=== PATIENT | female | born 1930 | race Caucasian/White ===

== ENCOUNTER 2017-08-06 13:38 | Inpatient (IN) ==
--- NOTE | 2017-08-06 14:19 | Emergency Department Note ---
Disposition Clinical Impression: Compression fracture, Pulmonary fibrosis, Mucus plugging of bronchi, Shortness of breath, Cough Chest pain Qualifiers: Chest pain type: chest pain on breathing Qualified Code(s): R07.1 - Chest pain on breathing Disposition: Admitted As Inpatient Condition: Fair Time of Disposition: 18:00 Chest Pain HPI - General Chief Complaint: ED Chest Pain Stated Complaint: CP Time Seen by Provider: 08/06/17 13:48 Source: patient Vital Signs Reviewed: Yes Nursing Notes Reviewed: Yes - History of Present Illness HPI Narrative: Patient is a 86-year-old female is brought in secondary to unable to walk secondary to weakness. Patient fell and hit her head this morning. No loss of consciousness. Patient is not on Coumadin. Patient is only on aspirin. No history of heart attack. Patient has been under treatment by Dr. Malhotra of pulmonology for pneumonitis. Patient states she continues to have chest pain along costal region in front and along the costal region in her back with cough and pain is worse when lying down. Patient states her pain is 10/10 sharp. Patient's weakness has been getting worse over the past 4 days currently patient is unable to stand on her own Pt complaint: chest pain Onset (ago): day(s) Duration: constant Onset: other (All the time) Pain Location: other (Diaphragmatic) Severity: severe Severity scale (1-10): 10 Quality: sharp Improves with: nothing Worsens with: supine Context: recent illness (Pneumonitis) Associated symptoms: Reports: other (Weakness) Treatments prior to arrival chest pain: aspirin - Related Data Home Medications Medication Instructions Recorded Confirmed Amlodipine Besylate 5 mg PO QAM 05/13/16 07/22/16 Aspirin 81 mg PO DAILY 05/13/16 07/22/16 Atenolol [Tenormin] 50 mg PO DAILY 05/13/16 07/22/16 Calcium Carbonate [Calcium] 500 mg PO QAM 05/13/16 07/22/16 Cholecalciferol (D-3) [Vitamin D] 1,000 unit PO DAILY 05/13/16 07/22/16 LORazepam [Ativan] 1 mg PO TID 05/13/16 07/22/16 Levothyroxine [Synthroid] 25 mcg PO 0605/13/16 07/22/16 Rosuvastatin Calcium [Crestor] 5 mg PO QAM 05/13/16 07/22/16 metFORMIN [Glucophage] 500 mg PO BIDWM 05/13/16 07/22/16 Acetaminophen/Butalbital/Caffe 1 tab PO Q6H PRN 07/22/16 07/22/16 [Fioricet] Nitroglycerin [Nitrostat] 0.4 mg SL Q5M PRN 07/22/16 07/22/16 Previous Rx's Medication Instructions Recorded Metaxalone [Skelaxin] 800 mg PO QID #21 tablet 05/30/16 Promethazine [Phenergan] 25 mg PO Q6HR #12 tablet 05/30/16 Azithromycin [Zithromax] 500 mg PO Q24H 5 Days 07/23/16 Ibuprofen [Motrin] 200 mg PO TID PRN #0 07/23/16 Magnesium Oxide [Mag-Ox] 400 mg PO DAILY #20 tablet 07/23/16 Potassium Chloride 10 meq PO DAILY #10 tab.er.prt 07/23/16 Magnesium Oxide [Mgo] 400 mg PO BID #20 tablet 05/19/17 Allergies Allergy/AdvReac Type Severity Reaction Status Date / Time codeine Allergy Hallucinati Verified 05/19/17 12:00 [From Tylenol-Codeine #3] ng gabapentin [From Neurontin] Allergy See Verified 05/19/17 12:00 Comments hydrocodone [From Vicodin] Allergy Dizziness Verified 05/19/17 12:00 levomefolate calcium Allergy Dizziness Verified 05/19/17 12:00 [From Metanx] mecobalamin [From Metanx] Allergy Dizziness Verified 05/19/17 12:00 Penicillins [PCN] Allergy Hives Verified 05/19/17 12:00 pregabalin [From Lyrica] Allergy Hives Verified 05/19/17 12:00 propoxyphene Allergy Hallucinati Verified 05/19/17 12:00 [From Darvocet-N] ng pyridoxal phosphate Allergy Dizziness Verified 05/19/17 12:00 [From Metanx] All systems ED: reviewed and negative except as stated. Review of Systems: As Per HPI Constitutional: Denies: fever Eyes: Denies: eye pain, vision change ENT ED: Reports: congestion Cardiovascular: Reports: chest pain. Denies: palpitations Respiratory: Reports: cough, dyspnea, wheezes Gastrointestinal: Denies: abdominal pain Genitourinary: Denies: urgency, dysuria, frequency Musculoskeletal: Reports: back pain Neurological: Reports: weakness. Denies: headache Endocrine: Reports: fatigue Chest Pain PMH - Past Medical History Medical history: Reports: arthritis, coronary artery disease, diabetes, hyperlipidemia, hypertension, peripheral artery disease, thyroid disease, TIA Surgical history: Reports: appendectomy, other Psychiatric history: Reports: anxiety, depression [employer] history: Reports: bilateral tubal ligation - Social History Smoking Status: Never smoker Alcohol use: Reports: none Drug use: Reports: none Physical Exam 78-year-old female who is alert and oriented 3 in no acute distress. Patient has normal vital signs. Patient has discomfort when sitting up for her lung exam patient's unable to lay flat secondary to worsening discomfort as well - General General appearance: alert - Head Head exam: atraumatic, normocephalic, normal inspection - Eye Eye exam: Present: normal appearance, PERRL, EOMI - ENT ENT exam: normal exam, normal oropharynx, mucous membranes moist - Neck Neck exam: Present: normal inspection, full ROM, trachea midline - Chest Chest inspection: Present: normal inspection, symmetric chest wall rise. Absent : tenderness - Respiratory Respiratory exam: Present: normal lung sounds bilaterally, wheezes (Left lung field) - Cardiovascular Cardiovascular exam: Present: regular rate, normal rhythm, normal heart sounds - Abdominal Exam Abdominal exam: Present: soft, Non-Tender. Absent: tenderness, distention, guarding, rebound, rigidity - Extremities Exam Extremities exam: Present: normal inspection, full ROM. Absent: tenderness, pedal edema - Back Exam Back exam: Present: normal inspection, full ROM. Absent: tenderness, CVA tenderness (R), CVA tenderness (L) - Neurological Exam Neurological exam: Present: alert, oriented X3, CN II-XII intact - Psychiatric Psychiatric exam: Present: normal affect - Skin Skin exam: Present: warm, dry, intact Course - Reevaluation(s) Reevaluation #1: Labs and imaging ordered Time: 14:23 - Consultations Consultation #1: Patient accepted for admission by hospitalist Dr. Alegre Time: 18:00 Vital Signs Temperature 98.4 F 08/06/17 13:41 Pulse Rate 76 08/06/17 13:41 Respiratory Rate 20 08/06/17 13:41 Blood Pressure 112/60 08/06/17 13:41 O2 Sat by Pulse Oximetry 92 08/06/17 13:41 Temperature 98.3 F 08/06/17 19:09 Pulse Rate 69 08/06/17 19:09 Respiratory Rate 12 08/06/17 19:09 Blood Pressure 136/54 08/06/17 19:09 O2 Sat by Pulse Oximetry 93 08/06/17 19:09 Oxygen Delivery Oxygen Delivery Room Air Chest Pain - MDM Narrative Medical decision making narrative: Patient with chest pain difficulty breathing and short of breath and generalized weakness worsening over the past week. Patient has history of a pneumonitis with worsening chest pain with coughing. Patient's labs show no elevation of white count. Patient's anemia is around baseline. Patient has elevated potassium 4.7 and was started on IV normal saline. Patient has no elevation of creatinine. CTA of the chest was taken secondary to worsening symptoms of patient's underlying pneumonitis and concerns for pulmonary embolism. CTA showed negative PE but did show a compression fracture at T6. Patient also has bronchiectasis with mucous plugging that is new. Recommended admission. Patient excess decision to admit. Patient is accepted for admission by Dr. Alegre the hospitalist. - Lab Data Result diagrams: 08/06/17 14:30 08/06/17 14:30 Lab Results 08/06/17 08/06/17 08/06/17 Range/Units 14:30 14:30 14:30 WBC 6.8 (4.3-11.1) K/mcL RBC 4.59 (3.82-4.97) M/mcL Hgb 10.7 L (11.5-15.4) g/dL Hct 36.4 (35.3-44.9) % MCV 79.3 L (83.0-100.0) fL MCH 23.3 L (28.0-33.3) pg MCHC 29.4 L (31.6-35.5) g/dL RDW 14.9 H (11.5-14.5) % Plt Count 369 (140-400) K/mcL MPV 10.1 (9.4-12.4) fL Immature Gran % 0.7 (0-4) % Seg Neutrophils % 70.7 % Lymphocytes % 20.1 % Monocytes % 7.8 % Eosinophils % 0.0 % Basophils % 0.7 % Neutrophils # 4.8 (1.6-8.9) K/mcL Lymphocytes # 1.4 (0.6-4.6) K/mcL Monocytes # 0.5 (0.0-1.3) K/mcL Eosinophils # 0.0 (0.0-0.6) K/mcL Basophils # 0.1 (0.0-0.2) K/mcL PT 10.4 (9.4-12.1) Seconds INR 1.0 APTT 32.7 (26.0-36.0) Seconds Sodium 137 (136-145) mEq/L Potassium 4.9 H (3.5-4.5) mEq/L Chloride 98 (98-109) mEq/L Carbon Dioxide 30 H (19-29) mEq/L BUN 21 H (7-20) mg/dL Creatinine 1.02 (0.57-1.11) mg/dL Est GFR ( Amer) > 60 (> 60) Est GFR (Non-Af Amer) 51 L (> 60) BUN/Creatinine Ratio 21 (6-26) Glucose 90 (70-99) mg/dL POC Glucose (58-89) Calculated Osmolality 287 (280-300) Calcium 11.9 H (8.6-10.8) mg/dL Troponin I (0-0.03) ng/mL B-Natriuretic Peptide (0-100) pg/mL Urine Color (Yellow) Urine Clarity (Clear) Urine pH (5.0-8.0) pH Units Ur Specific [place] (1.010-1.025) Urine Protein (Neg-Trace) mg/dL Urine Glucose (UA) (Normal) mg/dL Urine Ketones (Negative) mg/dL Urine Blood (Negative) Urine Nitrite (Negative) Urine Bilirubin (Negative) Urine Urobilinogen (Normal) mg/dL Ur Leukocyte Esterase (Negative) Urine Microscopic RBC (0-3) per hpf Urine Microscopic WBC (0-3) per hpf Ur Squamous Epith Cells (None-Few) per lpf Urine Bacteria (None-Few) per hpf Hyaline Casts (None-Few) per lpf 08/06/17 08/06/17 08/06/17 Range/Units 14:30 14:30 17:25 WBC (4.3-11.1) K/mcL RBC (3.82-4.97) M/mcL Hgb (11.5-15.4) g/dL Hct (35.3-44.9) % MCV (83.0-100.0) fL MCH (28.0-33.3) pg MCHC (31.6-35.5) g/dL RDW (11.5-14.5) % Plt Count (140-400) K/mcL MPV (9.4-12.4) fL Immature Gran % (0-4) % Seg Neutrophils % % Lymphocytes % % Monocytes % % Eosinophils % % Basophils % % Neutrophils # (1.6-8.9) K/mcL Lymphocytes # (0.6-4.6) K/mcL Monocytes # (0.0-1.3) K/mcL Eosinophils # (0.0-0.6) K/mcL Basophils # (0.0-0.2) K/mcL PT (9.4-12.1) Seconds INR APTT (26.0-36.0) Seconds Sodium (136-145) mEq/L Potassium (3.5-4.5) mEq/L Chloride (98-109) mEq/L Carbon Dioxide (19-29) mEq/L BUN (7-20) mg/dL Creatinine (0.57-1.11) mg/dL Est GFR ( Amer) (> 60) Est GFR (Non-Af Amer) (> 60) BUN/Creatinine Ratio (6-26) Glucose (70-99) mg/dL POC Glucose (58-89) Calculated Osmolality (280-300) Calcium (8.6-10.8) mg/dL Troponin I 0.00 (0-0.03) ng/mL B-Natriuretic Peptide 54 (0-100) pg/mL Urine Color Yellow (Yellow) Urine Clarity Clear (Clear) Urine pH 6.0 (5.0-8.0) pH Units Ur Specific [place] > 1.030 H (1.010-1.025) Urine Protein Trace (Neg-Trace) mg/dL Urine Glucose (UA) Normal (Normal) mg/dL Urine Ketones Negative (Negative) mg/dL Urine Blood Negative (Negative) Urine Nitrite Negative (Negative) Urine Bilirubin Small H (Negative) Urine Urobilinogen Normal (Normal) mg/dL Ur Leukocyte Esterase Negative (Negative) Urine Microscopic RBC 0-3 (0-3) per hpf Urine Microscopic WBC 0-3 (0-3) per hpf Ur Squamous Epith Cells Moderate H (None-Few) per lpf Urine Bacteria None Seen (None-Few) per hpf Hyaline Casts None Seen (None-Few) per lpf 08/06/17 Range/Units 19:23 WBC (4.3-11.1) K/mcL RBC (3.82-4.97) M/mcL Hgb (11.5-15.4) g/dL Hct (35.3-44.9) % MCV (83.0-100.0) fL MCH (28.0-33.3) pg MCHC (31.6-35.5) g/dL RDW (11.5-14.5) % Plt Count (140-400) K/mcL MPV (9.4-12.4) fL Immature Gran % (0-4) % Seg Neutrophils % % Lymphocytes % % Monocytes % % Eosinophils % % Basophils % % Neutrophils # (1.6-8.9) K/mcL Lymphocytes # (0.6-4.6) K/mcL Monocytes # (0.0-1.3) K/mcL Eosinophils # (0.0-0.6) K/mcL Basophils # (0.0-0.2) K/mcL PT (9.4-12.1) Seconds INR APTT (26.0-36.0) Seconds Sodium (136-145) mEq/L Potassium (3.5-4.5) mEq/L Chloride (98-109) mEq/L Carbon Dioxide (19-29) mEq/L BUN (7-20) mg/dL Creatinine (0.57-1.11) mg/dL Est GFR ( Amer) (> 60) Est GFR (Non-Af Amer) (> 60) BUN/Creatinine Ratio (6-26) Glucose (70-99) mg/dL POC Glucose 108 H (58-89) Calculated Osmolality (280-300) Calcium (8.6-10.8) mg/dL Troponin I (0-0.03) ng/mL B-Natriuretic Peptide (0-100) pg/mL Urine Color (Yellow) Urine Clarity (Clear) Urine pH (5.0-8.0) pH Units Ur Specific [place] (1.010-1.025) Urine Protein (Neg-Trace) mg/dL Urine Glucose (UA) (Normal) mg/dL Urine Ketones (Negative) mg/dL Urine Blood (Negative) Urine Nitrite (Negative) Urine Bilirubin (Negative) Urine Urobilinogen (Normal) mg/dL Ur Leukocyte Esterase (Negative) Urine Microscopic RBC (0-3) per hpf Urine Microscopic WBC (0-3) per hpf Ur Squamous Epith Cells (None-Few) per lpf Urine Bacteria (None-Few) per hpf Hyaline Casts (None-Few) per lpf - Radiology Data Radiology results reviewed: Yes I reviewed the patient's radiology results. Chest X-Ray 08/06/17 14:04 IMPRESSION: 1. Mild left basilar opacity may represent atelectasis with small effusion. D/ / Fady Cleveland MD / Fady Cleveland MD Interpreting Provider: Fady Cleveland MD Head CT 08/06/17 14:17 IMPRESSION: No acute intracranial abnormality. D/ / Arsen Solorio MD / Arsen Sloorio MD Interpreting Provider: Arsen Solorio MD Chest CTA 08/06/17 16:03 IMPRESSION: 1. No evidence of pulmonary embolism or aortic dissection. 2. There is evidence of interstitial fibrosis, irregular peripheral interstitial opacities in the lower lungs, with early fibrosis evidenced by honeycombing. The distribution suggests usual interstitial pneumonitis, and the differential diagnosis includes idiopathic pulmonary fibrosis, drug toxicity, and collagen vascular disease. 3. Associated with fat, there is bronchiectasis in the lower lungs, with evidence of mucous plugging, greatest within the right middle lobe, similar to mildly increased when compared to the previous exam. 4. In addition, there is biapical pleural scarring, which is most likely postinflammatory. 5. There is a new compression fracture of T6, with loss of approximately 60% of the vertebral body height, which is new when compared to the previous exam from late June. This results in mild central canal stenosis secondary to retropulsion of fragments. D/ / Fredrick Ramirez MD / Fredrick Ramirez MD Interpreting Provider: Fredrick Ramirez MD - EKG Data EKG attestation: Yes I reviewed and interpreted this EKG. EKG results narrative: EKG taken 08/06/2017 and 1414 hrs. shows sinus rhythm at a rate of 74 beats a minute with no acute ST elevations or depressions of any leads, no QRS widening or QT prolongation. Patient does have inverted P waves degrees EKG for comparison taken 05/19/2017 shows a sinus rhythm at 85 bpm no signs ischemia. Heart Score - Score History: Slightly Suspicious EKG: Non Specific repolarisation Disturbance Age: Greater than 65 Risk Factors: Equal/Greater than 3 risk factor or history of atherosclerotic disease Troponin: Less than normal limit HEART Score Total: 5 Attestation Statement - Attestation Attestation: Patient was seen with resident physician. I reviewed the history, physical, assessment and plan, and agree with the findings. I also personally evaluated this patient and had [id number] time with this patient. 78-year-old female presents to the emergency department with chief complaint of increasing weakness and chest pain. Patient has a history of pneumonitis. Originally diagnosis past summer. She was restarted on antibiotics approximately week ago by her doctor. The symptoms have persisted and gotten worse. Additionally she is now getting physically weak to the point that she is followed over most recently hitting her head on the ground. She says she does not really remember but does not think she got knocked out. No fevers or chills. No abdominal pain. The son does have some mild shortness of breath. On examination vital signs are stable with a good blood pressure oxygenation's saturation, and afebrile. ENT is unremarkable. Heart regular rhythm and rate. Lungs some mild crackles throughout. No wheezing. Abdomen soft and nontender. Extremities unremarkable. Neurologically patient is alert and oriented moves all extremities. ED course we will need to reevaluate the patient for pneumonitis. CT scan of the chest revealed continued pneumonitis. CT scan of the head however revealed no acute abnormalities. The chest CT demonstrated a new compression fracture. So the remainder of the thoracic and cervical spine were imaged as well as the lumbar spine. There is no other acute changes that were found. Patient's pain was controlled emergency department.. Will check basic labs. She was started on IV antibiotics for pneumonitis. Patient will be admitted to the hospital for further evaluation and treatment. Agree with the resident physician assessment and plan.
[2017-08-06 14:43] LABS: Basophils # 0.1 K/mcL (0.0-0.2); Basophils % 0.7 %; Hematocrit 36.4 % (35.3-44.9); Hemoglobin 10.7 g/dL (11.5-15.4); Immature Granulocytes % 0.7 % (0-4); Lymphocytes # 1.4 K/mcL (0.6-4.6); Lymphocytes % 20.1 %; Mean Corpuscular HGB Conc 29.4 g/dL (31.6-35.5); Mean Corpuscular Hemoglobin 23.3 pg (28.0-33.3); Mean Corpuscular Volume 79.3 fL (83.0-100.0); Mean Platelet Volume 10.1 fL (9.4-12.4); Monocytes # 0.5 K/mcL (0.0-1.3); Monocytes % 7.8 %; Neutrophils # 4.8 K/mcL (1.6-8.9); Platelet Count 369 K/mcL (140-400); Red Blood Count 4.59 M/mcL (3.82-4.97); Red Cell Distribution Width 14.9 % (11.5-14.5); Segmented Neutrophils % 70.7 %
[2017-08-06 14:48] LABS: Prothrombin Time 10.4 Seconds (9.4-12.1)
[2017-08-06 14:51] LABS: Activated Partial Thrombo Time 32.7 Seconds (26.0-36.0)
[2017-08-06 14:57] LABS: BUN/Creatinine Ratio 21 (6-26); Blood Urea Nitrogen 21 mg/dL (7-20); Calcium 11.9 mg/dL (8.6-10.8); Carbon Dioxide 30 mEq/L (19-29); Chloride 98 mEq/L (98-109); Glucose 90 mg/dL (70-99); Osmolality,Calculated 287 (280-300); Potassium 4.9 mEq/L (3.5-4.5); Sodium 137 mEq/L (136-145); eGFR For African Americans > 60 (> 60); eGFR For Non-African Americans 51 (> 60)
[2017-08-06] MEDS ORDERED: *HR* FentaNYL (PF) 100 MCG/2 ML VIAL IVP ONE (16:57)
[2017-08-06] MEDS ORDERED: 0.9 % Sodium Chloride 1,000 ML IVC ONE (17:35)
[2017-08-06 17:36] LABS: Bilirubin,Urine Small (Negative); Blood,Urine Negative (Negative); Clarity,Urine Clear (Clear); Color,Urine Yellow (Yellow); Glucose,Urine (UA) Normal (Normal); Ketones,Urine Negative (Negative); Leukocyte Esterase,Urine Negative (Negative); Nitrite,Urine Negative (Negative); Protein,Urine Trace mg/dL (Neg-Trace); Specific Gravity,Urine > 1.030 (1.010-1.025); Urobilinogen,Urine Normal (Normal)
[2017-08-06 17:38] LABS: Bacteria,Urine None Seen per hpf (None-Few); Hyaline Casts,Urine None Seen per lpf (None-Few); RBC,Urine 0-3 per hpf (0-3); Squamous Epithelial Cell,Urine Moderate per lpf (None-Few); WBC,Urine 0-3 per hpf (0-3)
[2017-08-06] MEDS ORDERED: Azithromycin 500 MG in D5% in Water 250 ML IVPB ONE (18:58)
[2017-08-06] MEDS ORDERED: Nitroglycerin 0.4 MG TAB.SUBL SL PRN (19:59)
[2017-08-06] MEDS ORDERED: Azithromycin 250 MG TABLET PO SCH (20:00)
[2017-08-06] MEDS ORDERED: Naloxone 0.4 MG/ML INJ IVP PRN (20:05)
[2017-08-06] MEDS ORDERED: *HR* Morphine 2 MG/ML SYRINGE IVP PRN (20:05)
[2017-08-06] MEDS ORDERED: Ondansetron 4 MG/2 ML VIAL IVP PRN (20:05)
[2017-08-06] MEDS ORDERED: Levofloxacin 500 MG/100 ML 500 MG/100 ML BAG IVPB SCH (21:00)
--- NOTE | 2017-08-06 21:00 | Internal Med History&Physical ---
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, bronchiectasis and mucous plugging within the right middle lobe - likely contributing to chest discomfort DuoNeb breathing treatment, IV Levaquin, O2 via nasal cannula Cultures - pending Chest x-ray - mild basilar opacity CTA chest - reviewed Troponin - negative, cycle troponin BN peptide - 54 CT head - no acute intracranial abnormality EKG - sinus rhythm with no acute ST-T changes Pulmonology consult The cardiac telemetry, continuous pulse ox, repeat labs in a.m., continue to monitor closely (2) Compression fracture Current visit: Yes Status: Acute Acute Compression Fracture of T6 with loss of approximately 60% of vertebral body height - likely secondary to osteoporosis and fall - likely causing chest discomfort and back pain Pain control with IV Morphine as needed Chronic compression fracture involving L2 and L3 vertebral bodies, no other acute fractures (3) Hypertension Current visit: No Status: Chronic Essential hypertension, controlled, continue Atenolol and Amlodipine Qualifiers: Hypertension type: essential hypertension Qualified Code(s): I10 - Essential (primary) hypertension (4) Hyperlipidemia Current visit: No Status: Chronic Continue Crestor Qualifiers: Hyperlipidemia type: unspecified Qualified Code(s): E78.5 - Hyperlipidemia , unspecified (5) Diabetes Current visit: No Status: Chronic Diabetes mellitus type 2, [id number]-tteswitts, normoglycemia Continue glucose checks, sliding scale insulin Qualifiers: Diabetes mellitus type: type 2 Diabetes mellitus complication status: with unspecified complications Diabetes mellitus water taxi boat mate insulin use: without water taxi boat mate use Qualified Code(s): E11.8 - Type 2 diabetes mellitus with unspecified complications (6) Hypothyroid Current visit: No Status: Chronic Continue home dose of Levothyroxine Qualifiers: Hypothyroidism type: unspecified Qualified Code(s): E03.9 - Hypothyroidism , unspecified (7) DVT prophylaxis Status: Acute Continue Heparin subcutaneous Internal Medicine - H&P: HPI Chief complaint: Chest pain Admitted From: Emergency Dept Plans for Post Hospital Care: Home History of present illness: Ms. Seals is a 86 year old female with past medical history of arthritis, coronary artery disease, diabetes, hyperlipidemia, hypertension, TIA, thyroid disease, peripheral vascular disease, anxiety, depression and osteoporosis. Patient presents to the ED with complaints of generalized weakness, chest discomfort and difficulty walking. Examined in the room. Patient is awake and alert. Not in any distress. Able to provide all history. No family members at bedside. Patient states she initially had generalized weakness and had a fall. She states she did not lose consciousness. Patient also complaints of chest pressure which started earlier today. Describes pain as sharp at times and currently rates it 5 out of 10. It radiates across her chest and to her back. Pain is worse with coughing. She also has associated shortness of breath. No alleviating factors. Symptoms started about 1-2 days ago. Gradually worsening. She also complains of mild lightheadedness. Denies vomiting or diarrhea or abdominal pain or any other symptoms. Patient states she has been treated for pneumonia recently as outpatient. Initial workup in the ED significant for new compression fracture of T6 with loss of 60% of the vertebral body height and also evidence of interstitial fibrosis, interstitial pneumonitis and bronchiectasis in the lower lung with mucus plugging within the right middle lobe. Patient is being admitted for compression fracture and probable pneumonia. Pulmonology consult is pending. CODE STATUS full code. Past Med Surg Social Fam HX - Past Medical History Medical history: arthritis, coronary artery disease, diabetes, hyperlipidemia, hypertension, peripheral artery disease, thyroid disease, TIA Psychiatric history: anxiety, depression - Past Surgical History Surgical History: appendectomy, other - Social History Smoking Status: Never smoker Smokeless Tobacco Status: No Alcohol use: none Drug use: none - Family History Father Living Status: Hx Family Cancer: Yes (Stomach) Mother Living Status: Hx Family Cardiac Disorders: Yes Brother Living Status: Still Living Hx Family Endocrine Disorder: Yes (DM) Sister Living Status: Hx Family Cancer: Yes (Colon) Internal Medicine - H&P: Meds Amlodipine Besylate 5 mg PO QAM 05/13/16 [History] Aspirin 81 mg PO DAILY 05/13/16 [History] Atenolol [Tenormin] 50 mg PO DAILY 05/13/16 [History] Calcium Carbonate [Calcium] 500 mg PO QAM 05/13/16 [History] Cholecalciferol (D-3) [Vitamin D] 1,000 unit PO DAILY 05/13/16 [History] LORazepam [Ativan] 1 mg PO TID 05/13/16 [History] Levothyroxine [Synthroid] 25 mcg PO 0630 05/13/16 [History] Rosuvastatin Calcium [Crestor] 5 mg PO QAM 05/13/16 [History] metFORMIN [Glucophage] 500 mg PO BIDWM 05/13/16 [History] Metaxalone [Skelaxin] 800 mg PO QID #21 tablet 05/30/16 [Rx] Promethazine [Phenergan] 25 mg PO Q6HR #12 tablet 05/30/16 [Rx] Acetaminophen/Butalbital/Caffe [Fioricet] 1 tab PO Q6H PRN 07/22/16 [History] Nitroglycerin [Nitrostat] 0.4 mg SL Q5M PRN 07/22/16 [History] Azithromycin [Zithromax] 500 mg PO Q24H 5 Days 07/23/16 [Rx] Ibuprofen [Motrin] 200 mg PO TID PRN #0 07/23/16 [Rx] Magnesium Oxide [Mag-Ox] 400 mg PO DAILY #20 tablet 07/23/16 [Rx] Potassium Chloride 10 meq PO DAILY #10 tab.er.prt 07/23/16 [Rx] Magnesium Oxide [Mgo] 400 mg PO BID #20 tablet 05/19/17 [Rx] 3 Allergy/AdvReac Type Severity Reaction Status Date / Time codeine Allergy Hallucinati Verified 05/19/17 12:00 [From Tylenol-Codeine #3] ng gabapentin [From Neurontin] Allergy See Verified 05/19/17 12:00 Comments hydrocodone [From Vicodin] Allergy Dizziness Verified 05/19/17 12:00 levomefolate calcium Allergy Dizziness Verified 05/19/17 12:00 [From Metanx] mecobalamin [From Metanx] Allergy Dizziness Verified 05/19/17 12:00 Penicillins [PCN] Allergy Hives Verified 05/19/17 12:00 pregabalin [From Lyrica] Allergy Hives Verified 05/19/17 12:00 propoxyphene Allergy Hallucinati Verified 05/19/17 12:00 [From Darvocet-N] ng pyridoxal phosphate Allergy Dizziness Verified 05/19/17 12:00 [From Metanx] All Systems PM: A 10-system review of systems was performed and is negative for pertinent findings except as documented above in the HPI. - Constitutional Constitutional: fatigue, weakness, no fever(s) - EENT Eyes: no blurry vision - Cardiovascular Cardiovascular ROS IM: chest pain, dyspnea, dyspnea on exertion, lightheadedness , orthopnea, no diaphoresis, no edema, no palpitations, no syncope - Respiratory Respiratory: cough, dyspnea, dyspnea on exertion, no hemoptysis, no wheezing, no chest congestion, no excessive phlegm production - Gastrointestinal Gastrointestinal: no abdominal pain, no bloating, no cramping, no diarrhea, no hematemesis, no hematochezia, no nausea, no vomiting - Genitourinary Genitourinary: no dysuria - Musculoskeletal Musculoskeletal ROS IM: no back pain - Neurological Neurological ROS: no abnormal gait, no confusion, no convulsions, no dizziness, no loss of vision, no numbness, no tingling - Constitutional Vitals: Temp Pulse Resp BP Pulse Ox 98.3 F 69 12 136/54 93 08/06/17 19:08/06/17 19:08/06/17 19:08/06/17 19:08/06/17 19:09 General appearance: Present: cachectic, A&O X 3, pleasant, no acute distress, underweight, answers questions appropriately Exam: Patient is chronically ill-appearing, frail - Head Head exam: Present: atraumatic - Eye Eye exam: Present: EOMI - ENT ENT exam: Present: mucous membranes dry - Respiratory Respiratory exam: Present: chest wall tenderness (Mild), wheezes (Mild bilaterally). Absent: accessory muscle use, rales, rhonchi, tachypnea - Cardiovascular Cardiovascular exam: Present: RRR, +S1, +S2 - GI/Abdominal GI/Abdominal exam: Present: soft. Absent: distended, firm, guarding, tenderness - Extremities Exam Extremities exam: Present: radial pulses palpable and symmetrical. Absent: calf tenderness, cyanotic, pedal edema - Neurological Exam Neurological exam: Present: alert, oriented X3, no focal deficits. Absent: facial droop, speech deficit Internal Med - H&P Results - Labs CBC & Chem 7: 08/06/17 14:30 08/06/17 14:30
[2017-08-06] MEDS ORDERED: D5% in Water 1,000 ML IVC PRN (21:58)
[2017-08-06] MEDS ORDERED: Dextrose Gel 15 GM PO PRN ×2 (21:58)
[2017-08-06] MEDS ORDERED: *HR* Dextrose 50 % in Water (Syg) 50 ML SYRINGE IVP PRN (21:58)
[2017-08-06] MEDS: Aspirin 81 MG TAB.CHEW PO SCH (23:20)
[2017-08-06] MEDS: Acetaminophen 325 MG TABLET PO PRN (23:30)
[2017-08-07] MEDS: Ipratropium/Albuterol Neb 3 ML IH SCH ×6 (00:09→20:05)
[2017-08-07 04:33] LABS: Basophils # 0.1 K/mcL (0.0-0.2); Basophils % 0.9 %; Hematocrit 28.9 % (35.3-44.9); Hemoglobin 8.5 g/dL (11.5-15.4); Immature Granulocytes % 0.6 % (0-4); Lymphocytes # 1.6 K/mcL (0.6-4.6); Mean Corpuscular HGB Conc 29.4 g/dL (31.6-35.5); Mean Corpuscular Hemoglobin 23.4 pg (28.0-33.3); Mean Corpuscular Volume 79.6 fL (83.0-100.0); Mean Platelet Volume 10.3 fL (9.4-12.4); Monocytes # 0.6 K/mcL (0.0-1.3); Monocytes % 10.9 %; Neutrophils # 3.2 K/mcL (1.6-8.9); Platelet Count 290 K/mcL (140-400); Red Blood Count 3.63 M/mcL (3.82-4.97); Red Cell Distribution Width 14.9 % (11.5-14.5); Segmented Neutrophils % 58.6 %
[2017-08-07 04:46] LABS: BUN/Creatinine Ratio 18 (6-26); Blood Urea Nitrogen 14 mg/dL (7-20); Calcium 9.7 mg/dL (8.6-10.8); Carbon Dioxide 26 mEq/L (19-29); Chloride 102 mEq/L (98-109); Glucose 93 mg/dL (70-99); Magnesium 1.6 mg/dL (1.6-2.6); Osmolality,Calculated 280 (280-300); Potassium 4.3 mEq/L (3.5-4.5); Sodium 135 mEq/L (136-145); eGFR For African Americans > 60 (> 60); eGFR For Non-African Americans > 60 (> 60)
[2017-08-07] MEDS: *HR* Heparin 5,000 UNIT/ML VIAL SQ SCH ×2 (06:37→18:56)
[2017-08-07] MEDS: Levothyroxine 25 MCG TABLET PO SCH (06:37)
[2017-08-07] MEDS: Famotidine 20 MG/2 ML VIAL IVP SCH ×2 (06:38→18:56)
--- NOTE | 2017-08-07 07:13 | Pulmonology Consult Note ---
Date of Encounter: 08/07/17 Time of Encounter: 07:12 Assessment and Plan (1) Atelectasis of right lung Current Visit: Yes Status: Acute Impression: 1. Chest Pain/Compression Fracture: I suspect that the etiology of her chest pain is 60 mechanical in nature and not related to chronic changes within her lung 2. Middle Lobe Collapse/Chronic mucous plugging: This is likely secondary to current chronic ineffectual airway clearance with possibility of underlying chronic bronchitis possibly from secondhand tobacco exposure although I have no PFTs to conclude that she has underlying COPD) Possibility of chronic infection with NTM. Otherpossible causes are Chronic Renumatological causes and CVID. w/u as outpatient thus far unrevealing and she has followed/been evaluated by Rheumatology (repeat visit scheduled). Serologies outside of RF level are fairly unremarkable. 3. ILD. Early UIP pattern which can be seen in Rheumatological condidtions 4. DVT Prophylaxis. Recs: 1. Supportive Care per Primary Medicine Service. 2. The mainstay of her treatment will be aggressive airway clearance including Acapella and bronchodilators. I have consulted and will discuss with the respiratory therapist about pulmonary hygiene in this patient. I think another course of antimicrobials is warranted although given her advanced age and possibility for complications related to a fluoroquinolone I would recommend a five-day course of azithromycin. Additionally induce sputum to be sent for culture including Gram stain and acid-fast stain (not to look for Mycobacterium tuberculosis but Nontuberculous Mycobacterium) is warranted. She will need repeat imaging in 3-4 weeks after discharge with follow-up with pulmonary at that time and bronchoscopy could be considered down the line. 3.. 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 In her age group there is no consensus of management although given that she does not require oxygen and symptoms are fairly mild symptomatic treatment is likely the plan of care but will need to be discussed an outpatient basis 4. Recommend chemical DVT prophylaxis to prevent VTE unless contra indication arises (2) DVT prophylaxis Current Visit: Yes Status: Acute (3) Pulmonary fibrosis Current Visit: Yes Status: Chronic (4) Mucus plugging of bronchi Current Visit: Yes Status: Acute (5) Chest pain Current Visit: Yes Status: Acute Qualifiers: Chest pain type: other chest pain Qualified Code(s): R07.89 - Other chest pain; R07.8 - Other chest pain (6) Compression fx, thoracic spine Current Visit: Yes Status: Acute Qualifiers: Encounter type: initial encounter Fracture type: closed Qualified Code(s) : S22.000A - Wedge compression fracture of unspecified thoracic vertebra, initial encounter for closed fracture History of Present Illness Consult date: 08/07/17 Requesting physician: Bridgette Medellin Reason for consult: abnormal CXR/CT Chief complaint: Chest pain History of present illness: Pleasant 86-year-old woman with past medical history of arthritis, coronary artery disease, diabetes, hyperlipidemia, hypertension, TIA, thyroid disease, peripheral vascular disease, anxiety, depression and osteoporosis who presented with generalized weakness chest pain difficulty with ambulation along with a mechanical faill. Workup in ED was remarkable for acute T6 compression fracture also notable for chronic changes including bronchiectasis right middle lobe partial collapse with mucous plugging and bilateral lower lobe evidence of early fibrotic changes. The patient has recently been evaluated as an outpatient by the pulmonary service because of the chronic CT changes that were seen previously.. The plan at that time was for a course of antimicrobials which turned out to be sulfa with repeat CT scan at the end of the month breath C July). She has not followed up with her outpatient acrylic fabricator (Dr. Malhotra). She admits to a chronic nonproductive cough she has had some weight loss and inability to gain weight over last few months which she describes is related to "pneumonia". She denies hemoptysis. 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 smoke she has no other environmental or industrial pollutant exposure Past Med Surg Social Fam HX - Past Medical History Medical history: arthritis, coronary artery disease, diabetes, hyperlipidemia, hypertension, peripheral artery disease, thyroid disease, TIA Psychiatric history: anxiety, depression - Past Surgical History Surgical History: appendectomy, other - Social History Smoking Status: Never smoker Smokeless Tobacco Status: No Alcohol use: none Drug use: none - Family History Father Living Status: Hx Family Cancer: Yes (Stomach) Mother Living Status: Hx Family Cardiac Disorders: Yes Brother Living Status: Still Living Hx Family Endocrine Disorder: Yes (DM) Sister History Unknown: Yes Living Status: Hx Family Cancer: Yes (Colon) Medications and Allergies Amlodipine Besylate 5 mg PO QAM 05/13/16 [History] Aspirin 81 mg PO DAILY 05/13/16 [History] Atenolol [Tenormin] 50 mg PO DAILY 05/13/16 [History] Calcium Carbonate [Calcium] 500 mg PO QAM 05/13/16 [History] Cholecalciferol (D-3) [Vitamin D] 1,000 unit PO DAILY 05/13/16 [History] LORazepam [Ativan] 1 mg PO TID 05/13/16 [History] Levothyroxine [Synthroid] [place] [address]/13/16 [History] Rosuvastatin Calcium [Crestor] 5 mg PO QAM 05/13/16 [History] metFORMIN [Glucophage] 500 mg PO BIDWM 05/13/16 [History] Metaxalone [Skelaxin] 800 mg PO QID #21 tablet 05/30/16 [Rx] Acetaminophen/Butalbital/Caffe [Fioricet] 1 tab PO Q6H PRN 07/22/16 [History] Nitroglycerin [Nitrostat] 0.4 mg SL Q5M PRN 07/22/16 [History] Ibuprofen [Motrin] 200 mg PO TID PRN #0 07/23/16 [Rx] Magnesium Oxide [Mag-Ox] 400 mg PO DAILY #20 tablet 07/23/16 [Rx] Potassium Chloride 10 meq PO DAILY #10 tab.er.prt 07/23/16 [Rx] Glimepiride [Amaryl] 1 mg PO DAILY 08/07/17 [History] Metformin HCl [Glucophage] 1,000 mg PO BID 08/07/17 [History] Sulfamethoxazole/Trimeth DS [Bactrim DS] 1 tab PO BID 08/07/17 [History] 3 Allergy/AdvReac Type Severity Reaction Status Date / Time codeine Allergy Hallucinati Verified 05/19/17 12:00 [From Tylenol-Codeine #3] ng gabapentin [From Neurontin] Allergy See Verified 05/19/17 12:00 Comments hydrocodone [From Vicodin] Allergy Dizziness Verified 05/19/17 12:00 levomefolate calcium Allergy Dizziness Verified 05/19/17 12:00 [From Metanx] mecobalamin [From Metanx] Allergy Dizziness Verified 05/19/17 12:00 Penicillins [PCN] Allergy Hives Verified 05/19/17 12:00 pregabalin [From Lyrica] Allergy Hives Verified 05/19/17 12:00 propoxyphene Allergy Hallucinati Verified 05/19/17 12:00 [From Darvocet-N] ng pyridoxal phosphate Allergy Dizziness Verified 05/19/17 12:00 [From Metanx] All Systems: A 10-system review of systems was performed and is negative for pertinent findings except as documented above in the HPI. Physical Examination Vital Signs: Vital Signs, Last 4 Hours Temp Pulse Resp BP Pulse Ox 08/07/17 03:52 97.9 F 68 12 150/63 95 General appearance: no acute distress, other (Frail elderly woman) Eyes: nonicteric ENT: oropharynx moist Neck: supple Inspection: scoliosis, kyphosis Auscultation: bilateral: clear Cardiovascular: regular rate and rhythm Gastrointestinal: normoactive bowel sounds Extremities: no cyanosis, no edema, no clubbing Musculoskeletal: no deformities normal mental status, non-focal exam mood appropriate Results - Laboratory Findings CBC and BMP: 08/07/17 04:06 08/07/17 04:06 PT/INR, D-dimer PT 10.4 Seconds (9.4-12.1) 08/06/17 14:30 Abnormal lab findings: Abnormal lab results RBC 3.63 M/mcL (3.82-4.97) L 08/07/17 04:06 Hgb 8.5 g/dL (11.5-15.4) L D 08/07/17 04:06 Hct 28.9 % (35.3-44.9) L 08/07/17 04:06 MCV 79.6 fL (83.0-100.0) L 08/07/17 04:06 MCH 23.4 pg (28.0-33.3) L 08/07/17 04:06 MCHC 29.4 g/dL (31.6-35.5) L 08/07/17 04:06 RDW 14.9 % (11.5-14.5) H 08/07/17 04:06 Sodium 135 mEq/L (136-145) L 08/07/17 04:06 POC Glucose 108 (58-89) H 08/06/17 19:23 Ur Specific [place] > 1.030 (1.010-1.025) H 08/06/17 17:25 Urine Bilirubin Small (Negative) H 08/06/17 17:25 Ur Squamous Epith Cells Moderate per lpf (None-Few) H 08/06/17 17:25 - Clinical Findings Intake & Output: Intake & Output 08/06/17 08/06/17 08/07/17 15:59 23:59 07:59 Intake Total 1352 / 1352 Balance 1352 / 1352 Weight 37.058 kg Consult Discharge Plan - Plan Referrals: Jean Joseph MD [Primary Care Provider] -
[2017-08-07] MEDS: Insulin LISPRO 300 UNITS/3 ML VIAL SQ SCH ×4 (07:42→21:49)
--- NOTE | 2017-08-07 07:49 | Internal Med Progress Note ---
Date of Encounter: 08/07/17 Time of Encounter: 07:46 - Assessment and plan (1) Chest pain Current Visit: Yes Status: Acute Qualifiers: Chest pain type: other chest pain Qualified Code(s): R07.89 - Other chest pain; R07.8 - Other chest pain (2) Compression fx, thoracic spine Current Visit: Yes Status: Acute Qualifiers: Encounter type: initial encounter Fracture type: closed Qualified Code(s) : S22.000A - Wedge compression fracture of unspecified thoracic vertebra, initial encounter for closed fracture (3) Fall Current Visit: Yes Status: Acute Qualifiers: Encounter type: initial encounter Qualified Code(s): W19.XXXA - Unspecified fall, initial encounter (4) Pulmonary fibrosis Current Visit: Yes Status: Chronic (5) Diabetes Current Visit: Yes Status: Chronic Qualifiers: Diabetes mellitus type: type 2 Diabetes mellitus complication status: with unspecified complications Diabetes mellitus long term care phlebotomist insulin use: without long term care phlebotomist use Qualified Code(s): E11.8 - Type 2 diabetes mellitus with unspecified complications (6) Hypothyroid Current Visit: No Status: Chronic Qualifiers: Hypothyroidism type: unspecified Qualified Code(s): E03.9 - Hypothyroidism , unspecified (7) Hypertension Current Visit: Yes Status: Chronic Qualifiers: Hypertension type: essential hypertension Qualified Code(s): I10 - Essential (primary) hypertension (8) Hyperlipidemia Current Visit: Yes Status: Chronic Qualifiers: Hyperlipidemia type: unspecified Qualified Code(s): E78.5 - Hyperlipidemia , unspecified - Subjective Interval history: Mrs. Linda Seals is an 86-year-old female who had a mechanical fall due to weakness without any loss of consciousness. She she has an old T6 vertebral compression fracture . She is complaining of chest pain which is spreading around her back in a bandlike fashion. The granddaughter is told me that patient lives alone and she noted that she cannot ambulate very well by herself and last to 3 days and according to her patient was unable to get out of bed. When I examined her and found her lower extremity strength is pretty good without any pronator drift and she was able to get up and walk but certainly unsteady in her gait. Romberg was positive. I offered them that we can do MRI of brain to rule out any posterior stroke which they would like to have. Will start her on aspirin. She is also noted to be anemic. I will order a stool Hemoccult iron studies TSH and repeat CBC. I will also order physical therapy and social work administrator for discharge planning. At this time we are watching her for chest pain but initial workup is negative for cardiac cause. She has a history of diabetes hypertension dyslipidemia coronary artery disease CKD COPD. Accu- Chek 4 times a day with sliding scale coverage, daily blood pressure monitoring , resuming home medication. - Constitutional Vitals: Temp Pulse Resp BP Pulse Ox 98.7 F 69 14 172/67 96 08/07/17 07:25 08/07/17 07:25 08/07/17 07:25 08/07/17 07:25 08/07/17 07:25 General appearance: Present: cachectic, A&O X 3, pleasant, no acute distress, underweight, answers questions appropriately - Head Head exam: Present: atraumatic, normocephalic - Eye Eye exam: Present: PERRL, conjuntiva pink, sclera anicteric Pupils: Present: PERRL - Neck Neck exam general surgery: Present: supple, trachea midline. Absent: lymphadenopathy - Respiratory Respiratory exam: Present: CTAB. Absent: accessory muscle use, rales, rhonchi, wheezes - Cardiovascular Cardiovascular exam: Present: RRR, +S1, +S2. Absent: diastolic murmur, gallop, rubs, systolic murmur - GI/Abdominal GI/Abdominal exam: Present: normal bowel sounds, soft, no peritoneal signs. Absent: distended, tenderness - Extremities Exam Extremities exam: Present: warm, radial pulses palpable and symmetrical. Absent : calf tenderness, cyanotic, pedal edema - Neurological Exam Neurological exam: Present: CN II-XII intact, oriented X3, no focal deficits. Absent: pronater drift, facial droop, speech deficit Additional comments: Patient has no pronator drift and her plantars are downward bilaterally she she was able to get out of bed with some support and could walk without any support however her Romberg sign is positive she is complaining of difficulty in ambulation which I think probably is related to her ataxia. - Skin Skin exam: Present: dry, intact Internal Medicine: Result - Labs CBC & Chem 7: 08/07/17 04:06 08/07/17 04:06 Labs: Short CBC 08/07/17 Range/Units 04:06 WBC 5.4 (4.3-11.1) K/mcL Hgb 8.5 L D (11.5-15.4) g/dL Hct 28.9 L (35.3-44.9) % Plt Count 290 (140-400) K/mcL Neutrophils # 3.2 (1.6-8.9) K/mcL BMP 08/07/17 04:06 Sodium 135 L Potassium 4.3 Chloride 102 Carbon Dioxide 26 BUN 14 Creatinine 0.77 Glucose 93 Calcium 9.7 D Cardiac Enzymes 08/06/17 08/07/17 Range/Units 22:46 04:06 Troponin I 0.00 0.00 (0-0.03) ng/mL - ABG Interpretation ABG results: PT/INR, D-dimer PT 10.4 Seconds (9.4-12.1) 08/06/17 14:30 Consult Discharge Plan - Plan Referrals: Jean Joseph MD [Primary Care Provider] -
[2017-08-07] MEDS: amLODIPine 5 MG TABLET PO SCH (10:57)
[2017-08-07] MEDS: Cholecalciferol (D-3) 1,000 UNIT TABLET PO SCH (10:57)
[2017-08-07] MEDS: Magnesium Oxide 400 MG TABLET PO SCH (10:58)
[2017-08-07] MEDS: Aspirin 81 MG TAB.CHEW PO SCH (10:58)
[2017-08-07] MEDS ORDERED: Sodium Chloride for inhalation 3 ML VIAL IH ONE (11:30)
[2017-08-08] MEDS: Ipratropium/Albuterol Neb 3 ML IH SCH ×7 (00:02→23:45)
[2017-08-08] MEDS ORDERED: *HR* LORazepam 1 MG TABLET PO PRN (04:18)
[2017-08-08] MEDS: Levothyroxine 25 MCG TABLET PO SCH (06:26)
[2017-08-08] MEDS: Famotidine 20 MG/2 ML VIAL IVP SCH (06:26)
[2017-08-08] MEDS: *HR* Heparin 5,000 UNIT/ML VIAL SQ SCH ×2 (06:26→17:35)
[2017-08-08 07:00] LABS: Basophils # 0.1 K/mcL (0.0-0.2); Basophils % 0.8 %; Eosinophils % 0.2 %; Hematocrit 31.2 % (35.3-44.9); Hemoglobin 9.4 g/dL (11.5-15.4); Immature Granulocytes % 0.6 % (0-4); Lymphocytes # 1.3 K/mcL (0.6-4.6); Lymphocytes % 19.5 %; Mean Corpuscular HGB Conc 30.1 g/dL (31.6-35.5); Mean Corpuscular Hemoglobin 23.2 pg (28.0-33.3); Mean Corpuscular Volume 76.8 fL (83.0-100.0); Mean Platelet Volume 11.3 fL (9.4-12.4); Monocytes # 0.6 K/mcL (0.0-1.3); Monocytes % 9.1 %; Neutrophils # 4.5 K/mcL (1.6-8.9); Platelet Count 291 K/mcL (140-400); Red Blood Count 4.06 M/mcL (3.82-4.97); Red Cell Distribution Width 14.9 % (11.5-14.5); Segmented Neutrophils % 69.8 %
[2017-08-08 07:33] LABS: Thyroid Stimulating Hormone 0.463 mcIU/mL (0.350-4.840)
[2017-08-08 07:51] LABS: Platelet Estimate Normal (Normal)
[2017-08-08] MEDS: Cholecalciferol (D-3) 1,000 UNIT TABLET PO SCH (10:48)
[2017-08-08] MEDS: amLODIPine 5 MG TABLET PO SCH (10:48)
[2017-08-08] MEDS: Aspirin 81 MG TAB.CHEW PO SCH (10:49)
[2017-08-08] MEDS: Insulin LISPRO 300 UNITS/3 ML VIAL SQ SCH ×4 (10:50→21:29)
--- NOTE | 2017-08-08 11:22 | Pulmonology Progress Note ---
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 She was admitted with chest pain after mechanical fall I do not feel that current chest pain is related to chronic changes within her long and this is being evaluated by her materials management supervisor as an outpatient. She has not undergone airway clearance techniques such as Acapella and bronchodilators effectively since she has been seen in clinic and therefore we cannot really say if these therapies will be effective or not it increasing airway clearance and opening of the right middle lobe prior to possibility of more invasive evaluation such as bronchoscopy. Given age and frailty I recommend more conservative measures at present and to this and would recommend continuation of bronchodilators with planned for duo nebs 3 times a day to be coupled with airway clearance device such as Acapella device and she should also be discharged home with a incentive spirometer. I recommend an additional course of azithromycin for 5 days and recommend de- escalation from respiratory fluoroquinolone given age and PASTE MAKER changes. She has provided at least one sputum sample although I do not see that any microbiological data has resulted as of yet Further evaluation of thoracic fracture PASTE MAKER evaluation and disposition planning including possibility of rehabilitation and long-term care will be deferred to the primary medicine service Plan I plan to sign off and follow peripherally on microbiological data if relevant otherwise she will need follow-up as an outpatient for ongoing pulmonary needs think you for allowing us to participate in the care of this patient (2) DVT prophylaxis Current Visit: Yes Status: Acute (3) Pulmonary fibrosis Current Visit: Yes Status: Chronic (4) Mucus plugging of bronchi Current Visit: Yes Status: Acute (5) Chest pain Current Visit: Yes Status: Acute Qualifiers: Chest pain type: other chest pain Qualified Code(s): R07.89 - Other chest pain; R07.8 - Other chest pain (6) Compression fx, thoracic spine Current Visit: Yes Status: Acute Qualifiers: Encounter type: initial encounter Fracture type: closed Qualified Code(s) : S22.000A - Wedge compression fracture of unspecified thoracic vertebra, initial encounter for closed fracture Subjective Principal diagnosis: Chest pain Interval history: Overnight patient became confused and PASTE MAKER evaluation was undertaken including MRI of the brain which was negative for acute infarct. She appears to be back at her baseline now is joined by her family at bedside. She still having mild chest pain Objective PUL Vital signs: Last Vital Signs Temp 98.3 F 08/08/17 11:18 Pulse 61 08/08/17 11:18 Resp 15 08/08/17 11:18 BP 113/59 08/08/17 11:18 Pulse Ox 97 08/08/17 11:18 General appearance: no acute distress Auscultation: bilateral: clear Cardiovascular: regular rate and rhythm Gastrointestinal: normoactive bowel sounds Extremities: no edema, no clubbing Results - Laboratory Findings CBC and BMP: 08/08/17 06:24 08/07/17 04:06 PT/INR, D-dimer PT 10.4 Seconds (9.4-12.1) 08/06/17 14:30 Abnormal lab findings: Abnormal lab results Hgb 9.4 g/dL (11.5-15.4) L 08/08/17 06:24 Hct 31.2 % (35.3-44.9) L 08/08/17 06:24 MCV 76.8 fL (83.0-100.0) L 08/08/17 06:24 MCH 23.2 pg (28.0-33.3) L 08/08/17 06:24 MCHC 30.1 g/dL (31.6-35.5) L 08/08/17 06:24 RDW 14.9 % (11.5-14.5) H 08/08/17 06:24 Sodium 135 mEq/L (136-145) L 08/07/17 04:06 POC Glucose 189 (58-89) H 08/07/17 20:58 Iron 35 mcg/dL (50-170) L 08/08/17 06:24 % Saturation 8 % (15-50) L 08/08/17 06:24 Ur Specific [place] > 1.030 (1.010-1.025) H 08/06/17 17:25 Urine Bilirubin Small (Negative) H 08/06/17 17:25 Ur Squamous Epith Cells Moderate per lpf (None-Few) H 08/06/17 17:25 - Clinical Findings Intake & Output: Intake & Output 08/07/17 08/08/17 08/08/17 23:59 07:59 15:59 Intake Total 260 / 260 Balance 260 / 260 Consult Discharge Plan - Plan Referrals: Jean Joseph MD [Primary Care Provider] -
--- NOTE | 2017-08-08 12:40 | Internal Med Progress Note ---
Date of Encounter: 08/08/17 Time of Encounter: 12:38 - Assessment and plan (1) Encephalopathy acute Status: Acute Assessment and plan: Patient is noted to be delirious, likely related to age, hospital stay and possible use of narcotic pain medications. Currently not on any pain medications except Tylenol. CT head and MRI brain show no evidence of acute stroke or abnormality. Electrolytes and renal function noted to be normal. We will check lactic acid, serum ammonia, liver function tests. Supportive care. Fall precautions. (2) Chest pain Status: Resolved Assessment and plan: Likely related to recent fall. Currently chest pain-free. Initial EKG, telemetry monitoring and serial troponins noted to be normal. CT lumbar spine shows chronic compression fracture at L2/L3. Supportive care. Qualifiers: Chest pain type: other chest pain Qualified Code(s): R07.89 - Other chest pain; R07.8 - Other chest pain (3) Fall Status: Acute Assessment and plan: Physical and occupational therapy evaluation have been completed, recommend placement in extended care facility. Fall precautions and supportive care. Qualifiers: Encounter type: initial encounter Qualified Code(s): W19.XXXA - Unspecified fall, initial encounter (4) Hypertension Status: Chronic Qualifiers: Hypertension type: essential hypertension Qualified Code(s): I10 - Essential (primary) hypertension (5) Hyperlipidemia Status: Chronic Qualifiers: Hyperlipidemia type: unspecified Qualified Code(s): E78.5 - Hyperlipidemia , unspecified (6) Diabetes Status: Chronic Assessment and plan: Continue Accu-Chek blood glucose monitoring. Noted to have hypoglycemia on basic metabolic panel this afternoon, fingerstick was repeated and patient received D50 with improvement in blood sugar. Monitor closely. Check hemoglobin A1c. Qualifiers: Diabetes mellitus type: type 2 Diabetes mellitus complication status: with unspecified complications Diabetes mellitus group home insulin use: without group home use Qualified Code(s): E11.8 - Type 2 diabetes mellitus with unspecified complications (7) Hypothyroid Status: Chronic Qualifiers: Hypothyroidism type: unspecified Qualified Code(s): E03.9 - Hypothyroidism , unspecified (8) Pulmonary fibrosis Status: Chronic Assessment and plan: Pulmonology consult and follow-up appreciated. Chest pain is less likely related to idiopathic pulmonary fibrosis. Recommend to continue bronchodilators along with supplemental oxygen as needed. Pulmonary toilet. We will start 5 day course of azithromycin per pulmonology recommendations. Patient will need outpatient pulmonology follow-up. (9) Anemia Status: Chronic Assessment and plan: Patient is noted to have microcytic anemia. Iron profile shows decreased iron stores. We will start ferrous sulfate supplements. Check stool for occult blood. Qualifiers: Anemia type: iron deficiency Iron deficiency anemia type: unspecified iron deficiency Qualified Code(s): D50.9 - Iron deficiency anemia, unspecified - Subjective Interval history: Feels better but noted to be confused, answers inappropriately and cannot follow certain commands; improving chest pain; no cough, dyspnea; - Constitutional Vitals: Temp Pulse Resp BP Pulse Ox 98.3 F 61 15 113/59 97 08/08/17 11:18 08/08/17 11:18 08/08/17 11:18 08/08/17 11:18 08/08/17 11:18 General appearance: Present: cachectic, A&O X 2, no acute distress, underweight. Absent: answers questions appropriately - Respiratory Respiratory exam: Present: CTAB (coarse breath sounds B/L). Absent: accessory muscle use, rales, rhonchi, wheezes Additional comments: kyphosis+ - Cardiovascular Cardiovascular exam: Present: RRR, +S1, +S2. Absent: diastolic murmur, gallop, rubs, systolic murmur - GI/Abdominal GI/Abdominal exam: Present: normal bowel sounds, soft, no peritoneal signs. Absent: distended, tenderness - Extremities Exam Extremities exam: Present: full ROM, warm, radial pulses palpable and symmetrical. Absent: calf tenderness, cyanotic, pedal edema - Neurological Exam Neurological exam: Present: altered, CN II-XII intact, no focal deficits. Absent: pronater drift, facial droop, speech deficit - Skin Skin exam: Present: dry, intact Internal Medicine: Result - Labs CBC & Chem 7: 08/09/17 05:48 08/09/17 05:48 Labs: Short CBC 08/08/17 Range/Units 06:24 WBC 6.4 (4.3-11.1) K/mcL Hgb 9.4 L (11.5-15.4) g/dL Hct 31.2 L (35.3-44.9) % Plt Count 291 (140-400) K/mcL Neutrophils # 4.5 (1.6-8.9) K/mcL - ABG Interpretation ABG results: PT/INR, D-dimer PT 10.4 Seconds (9.4-12.1) 08/06/17 14:30 - Impressions Impressions Brain MRI 08/08/17 17:45 IMPRESSION: 1. No acute infarct or acute intracranial process identified. 2. Mild diffuse cerebral volume loss and chronic small vessel ischemic changes. D/ / 08/08/2017 10:44:08 Jose Rodríguez MD / ami Interpreting Provider: Jose Rodríguez MD Consult Discharge Plan - Plan Additional Instructions: F/up with PCP in 1-2 weeks Referrals: Jean Joseph MD [Primary Care Provider] - Phil Malhotra MD [Partnered Physician] - 08/17/17 1:30 pm Prescriptions: Azithromycin [Zithromax] 250 mg PO DAILY #4 tablet
[2017-08-08] MEDS ORDERED: Azithromycin 500 MG in D5% in Water 250 ML IVPB SCH (13:00)
[2017-08-08] MEDS: Magnesium Oxide 400 MG TABLET PO SCH (14:02)
[2017-08-08 16:35] LABS: Calcium 10.7 mg/dL (8.6-10.8); Magnesium 1.8 mg/dL (1.6-2.6); Potassium 4.4 mEq/L (3.5-4.5)
[2017-08-08] MEDS ORDERED: 0.9 % Sodium Chloride 1,000 ML IVC SCH (17:15)
--- NOTE | 2017-08-08 18:13 | Electrocardiograph Report ---
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
[2017-08-08] MEDS: Acetaminophen 325 MG TABLET PO PRN (21:29)
[2017-08-09] MEDS: Ipratropium/Albuterol Neb 3 ML IH SCH ×3 (05:59→10:51)
[2017-08-09] MEDS: Levothyroxine 25 MCG TABLET PO SCH (06:25)
[2017-08-09] MEDS: *HR* Heparin 5,000 UNIT/ML VIAL SQ SCH (06:25)
[2017-08-09 06:43] LABS: Hemoglobin A1C 6.2 %
[2017-08-09 06:51] LABS: Alanine Aminotransferase 12 Units/L (0-55); Albumin 3.8 g/dL (3.5-5.0); Albumin/Globulin Ratio 1.2 (1.1-2.2); Alkaline Phosphatase 70 Units/L (38-126); Aspartate Amino Transferase 18 Units/L (5-34); BUN/Creatinine Ratio 29 (6-26); Bilirubin,Total 0.2 mg/dL (0.2-1.2); Blood Urea Nitrogen 22 mg/dL (7-20); Calcium 10.2 mg/dL (8.6-10.8); Carbon Dioxide 25 mEq/L (19-29); Chloride 101 mEq/L (98-109); Globulin 3.3 g/dL (2.4-3.5); Glucose 124 mg/dL (70-99); Osmolality,Calculated 291 (280-300); Potassium 4.1 mEq/L (3.5-4.5); Sodium 138 mEq/L (136-145); Total Protein 7.1 g/dL (6.0-8.3); eGFR For African Americans > 60 (> 60); eGFR For Non-African Americans > 60 (> 60)
[2017-08-09 07:00] LABS: Basophils % 0.7 %; Hematocrit 34.5 % (35.3-44.9); Hemoglobin 10.3 g/dL (11.5-15.4); Immature Granulocytes % 0.5 % (0-4); Lymphocytes # 1.8 K/mcL (0.6-4.6); Lymphocytes % 28.6 %; Mean Corpuscular HGB Conc 29.9 g/dL (31.6-35.5); Mean Corpuscular Hemoglobin 23.4 pg (28.0-33.3); Mean Corpuscular Volume 78.2 fL (83.0-100.0); Mean Platelet Volume 10.3 fL (9.4-12.4); Monocytes # 0.5 K/mcL (0.0-1.3); Monocytes % 7.5 %; Neutrophils # 3.8 K/mcL (1.6-8.9); Platelet Count 387 K/mcL (140-400); Red Blood Count 4.41 M/mcL (3.82-4.97); Segmented Neutrophils % 62.7 %
[2017-08-09] MEDS: Cholecalciferol (D-3) 1,000 UNIT TABLET PO SCH (08:37)
[2017-08-09] MEDS: Magnesium Oxide 400 MG TABLET PO SCH (08:37)
[2017-08-09] MEDS: Insulin LISPRO 300 UNITS/3 ML VIAL SQ SCH ×2 (08:38→12:54)
[2017-08-09] MEDS: Aspirin 81 MG TAB.CHEW PO SCH (08:38)
[2017-08-09 11:56] VITALS: BP 149/85
--- NOTE | 2017-08-09 12:03 | Discharge Summary ---
Date of Encounter: 08/09/17 Time of Encounter: 12:00 - Discharge Diagnosis (1) Encephalopathy acute Priority: Primary Status: Acute (2) Fall Priority: Primary Status: Acute Qualifiers: Encounter type: initial encounter Qualified Code(s): W19.XXXA - Unspecified fall, initial encounter (3) Chest pain Priority: Primary Status: Resolved Qualifiers: Chest pain type: other chest pain Qualified Code(s): R07.89 - Other chest pain; R07.8 - Other chest pain (4) Hypertension Priority: Secondary Status: Chronic Qualifiers: Hypertension type: essential hypertension Qualified Code(s): I10 - Essential (primary) hypertension (5) Hyperlipidemia Priority: Secondary Status: Chronic Qualifiers: Hyperlipidemia type: unspecified Qualified Code(s): E78.5 - Hyperlipidemia , unspecified (6) Diabetes Priority: Secondary Status: Chronic Qualifiers: Diabetes mellitus type: type 2 Diabetes mellitus complication status: with unspecified complications Diabetes mellitus fpc insulin use: without fpc use Qualified Code(s): E11.8 - Type 2 diabetes mellitus with unspecified complications (7) Hypothyroid Priority: Secondary Status: Chronic Qualifiers: Hypothyroidism type: unspecified Qualified Code(s): E03.9 - Hypothyroidism , unspecified (8) Pulmonary fibrosis Priority: Secondary Status: Chronic - Discharge Medications Prescriptions: Azithromycin [Zithromax] 250 mg PO DAILY #4 tablet Home Medications: Amlodipine Besylate 5 mg PO QAM 05/13/16 [History] Aspirin 81 mg PO DAILY 05/13/16 [History] Atenolol [Tenormin] 50 mg PO DAILY 05/13/16 [History] Calcium Carbonate [Calcium] 500 mg PO QAM 05/13/16 [History] Cholecalciferol (D-3) [Vitamin D] 1,000 unit PO DAILY 05/13/16 [History] Levothyroxine [Synthroid] 25 mcg PO 0630 05/13/16 [History] Rosuvastatin Calcium [Crestor] 5 mg PO QAM 05/13/16 [History] metFORMIN [Glucophage] 500 mg PO BIDWM 05/13/16 [History] Metaxalone [Skelaxin] 800 mg PO QID #21 tablet 05/30/16 [Rx] Acetaminophen/Butalbital/Caffe [Fioricet] 1 tab PO Q6H PRN 07/22/16 [History] Nitroglycerin [Nitrostat] 0.4 mg SL Q5M PRN 07/22/16 [History] Ibuprofen [Motrin] 200 mg PO TID PRN #0 07/23/16 [Rx] Magnesium Oxide [Mag-Ox] 400 mg PO DAILY #20 tablet 07/23/16 [Rx] Potassium Chloride 10 meq PO DAILY #10 tab.er.prt 07/23/16 [Rx] Glimepiride [Amaryl] 1 mg PO DAILY 08/07/17 [History] Metformin HCl [Glucophage] 1,000 mg PO BID 08/07/17 [History] Azithromycin [Zithromax] 250 mg PO DAILY #4 tablet 08/09/17 [Rx] Ferrous Sulfate 325 mg PO BIDWM tablet 08/09/17 [Rx] LORazepam [Ativan] 1 mg PO TID PRN #15 08/09/17 [Rx] Allergies/Adverse Reactions: 3 Allergy/AdvReac Type Severity Reaction Status Date / Time codeine Allergy Hallucinati Verified 05/19/17 12:00 [From Tylenol-Codeine #3] ng gabapentin [From Neurontin] Allergy See Verified 05/19/17 12:00 Comments hydrocodone [From Vicodin] Allergy Dizziness Verified 05/19/17 12:00 levomefolate calcium Allergy Dizziness Verified 05/19/17 12:00 [From Metanx] mecobalamin [From Metanx] Allergy Dizziness Verified 05/19/17 12:00 Penicillins [PCN] Allergy Hives Verified 05/19/17 12:00 pregabalin [From Lyrica] Allergy Hives Verified 05/19/17 12:00 propoxyphene Allergy Hallucinati Verified 05/19/17 12:00 [From Darvocet-N] ng pyridoxal phosphate Allergy Dizziness Verified 05/19/17 12:00 [From Metanx] Procedures/tests Complete & Pending: Procedures Performed prior 72 hours Category Date Time Status MR head/brain wo con [MR] Routine MRI 08/08/17 17:45 Completed Date of admission: 08/06/17 20:05 Primary care physician: Jean Joseph MD Consults: 08/06/17 20:09 Consult to Pulmonology [CONS] Routine Consulting Provider: [facility] Reason for Consult: Pnuemonitis, mucus plugging Call Completed: No 08/07/17 07:43 Consult to Physical Therapy [CONS] Routine Comment: Evaluate, develop and implement POC Reason for Consult: Fall T6 vertebral fracture 08/07/17 11:29 Consult to Respiratory Therapy [CONS] Routine Reason for Consult: Airway clearance with Acapella coupled with Bronchodilators Call Completed: Yes 08/08/17 09:07 Consult to Fan Blade Truer [CONS] Routine Reason for SW Consult: Discharge planning Discharging clinician: Rosenda Min Anticipated date of discharge: 08/09/17 - Patient Status Disposition: Transfer SNF Condition: Fair Functional capacity at discharge: uses cane/walker Overall status at discharge: patient is not back to baseline - Discharge Instructions Follow Up With: Jean Joseph MD [Primary Care Provider] - Phil Malhotra MD [Partnered Physician] - 08/17/17 1:30 pm Additional Instructions: F/up with PCP in 1-2 weeks - Diet and Activity Activity: as per physical therapy Diet: diabetic diet, low fat, low cholesterol, low salt diet Hospital course: Ms. Seals is a 86 year old female with the above medical problems, admitted with fall and chest pain. Imaging studies done in the emergency room showed interstitial fibrosis along with right middle lobe collapse. Pulmonology was consulted and recommended aggressive pulmonary toilet and a course of azithromycin, which have been continued. Patient is noted to have chronic lumbar vertebral compression fractures, CT thoracic and lumbar spine showed no acute fractures or trauma. Physical and occupational therapy evaluation was completed and recommended placement in extended care facility, to which patient's family was agreeable. While in the hospital, patient developed delirium/acute encephalopathy. No infectious or metabolic etiology was identified and this is thought to be related to age, sundowning and hospitalization. She is otherwise medically stable for transfer to rehabilitation facility. - Time Spent with Patient Total time spent providing and/or coordinating discharge services: Greater than 30 minutes (40 min) - Constitutional Vitals: Temp Pulse Resp BP Pulse Ox 98.2 F 69 15 149/85 97 08/09/17 11:55 08/09/17 11:55 08/09/17 11:55 08/09/17 11:55 08/09/17 11:55 General appearance: Present: cachectic, A&O X 1, underweight. Absent: answers questions appropriately - Cardiovascular Cardiovascular exam: Present: RRR, +S1, +S2. Absent: diastolic murmur, gallop, rubs, systolic murmur
--- NOTE | 2017-08-09 12:09 | Physician Discharge Referral ---
ExtendedCare Referral Info Transfer To: [facility] Provider in Charge: Rosenda Min Provider in Charge after Transfer: PCP Institutional Level of Care: Skilled - Diagnosis (1) Encephalopathy acute Priority: Primary Status: Acute (2) Fall Priority: Primary Status: Acute (3) Chest pain Priority: Primary Status: Acute (4) Hypertension Priority: Secondary Status: Chronic (5) Hyperlipidemia Priority: Secondary Status: Chronic (6) Diabetes Priority: Secondary Status: Chronic (7) Hypothyroid Priority: Secondary Status: Chronic (8) Pulmonary fibrosis Priority: Secondary Status: Chronic Expected Duration of Placement: 3 weeks Prognosis: Fair Aware of Diagnosis: Family Aware of Prognosis: Family - Transfer Medications Prescriptions: Azithromycin [Zithromax] 250 mg PO DAILY #4 tablet Home Medications: Amlodipine Besylate 5 mg PO QAM 05/13/16 [History] Aspirin 81 mg PO DAILY 05/13/16 [History] Atenolol [Tenormin] 50 mg PO DAILY 05/13/16 [History] Calcium Carbonate [Calcium] 500 mg PO QAM 05/13/16 [History] Cholecalciferol (D-3) [Vitamin D] 1,000 unit PO DAILY 05/13/16 [History] Levothyroxine [Synthroid] 25 mcg PO 0630 05/13/16 [History] Rosuvastatin Calcium [Crestor] 5 mg PO QAM 05/13/16 [History] metFORMIN [Glucophage] 500 mg PO BIDWM 05/13/16 [History] Metaxalone [Skelaxin] 800 mg PO QID #21 tablet 05/30/16 [Rx] Acetaminophen/Butalbital/Caffe [Fioricet] 1 tab PO Q6H PRN 07/22/16 [History] Nitroglycerin [Nitrostat] 0.4 mg SL Q5M PRN 07/22/16 [History] Ibuprofen [Motrin] 200 mg PO TID PRN #0 07/23/16 [Rx] Magnesium Oxide [Mag-Ox] 400 mg PO DAILY #20 tablet 07/23/16 [Rx] Potassium Chloride 10 meq PO DAILY #10 tab.er.prt 07/23/16 [Rx] Glimepiride [Amaryl] 1 mg PO DAILY 08/07/17 [History] Metformin HCl [Glucophage] 1,000 mg PO BID 08/07/17 [History] Azithromycin [Zithromax] 250 mg PO DAILY #4 tablet 08/09/17 [Rx] Ferrous Sulfate 325 mg PO BIDWM tablet 08/09/17 [Rx] LORazepam [Ativan] 1 mg PO TID PRN #15 08/09/17 [Rx] Allergies/Adverse Reactions: 3 Allergy/AdvReac Type Severity Reaction Status Date / Time codeine Allergy Hallucinati Verified 05/19/17 12:00 [From Tylenol-Codeine #3] ng gabapentin [From Neurontin] Allergy See Verified 05/19/17 12:00 Comments hydrocodone [From Vicodin] Allergy Dizziness Verified 05/19/17 12:00 levomefolate calcium Allergy Dizziness Verified 05/19/17 12:00 [From Metanx] mecobalamin [From Metanx] Allergy Dizziness Verified 05/19/17 12:00 Penicillins [PCN] Allergy Hives Verified 05/19/17 12:00 pregabalin [From Lyrica] Allergy Hives Verified 05/19/17 12:00 propoxyphene Allergy Hallucinati Verified 05/19/17 12:00 [From Darvocet-N] ng pyridoxal phosphate Allergy Dizziness Verified 05/19/17 12:00 [From Metanx] - Respiratory Orders Smoking Cessation: Smoking cessation has been advised. For more information, call the [place] Tobacco Quit Line at 6-831-YCEWNOW. - Advance Directives Code Status: Full Code - Mobility Orders Ambulate - Rehabiliation Orders Rehab Potential: Fair Rehab Orders: ROM Exercises, Evaluation for Physical Therapy, Evaluation for Occupational Therapy - Diet Orders No Added Salt (AKASH), No Concentrated Sweets (diabetic), Cardiac CERTIFICATION: I certify that the transfer of the above named patient to an Extended Care Facility is necessary for the continuing treatment of the diagnosis listed. The above information is true and accurate reflection of patient's current condition. Confidential - Redisclosure prohibited without a patient's written consent.
[2017-08-09] MEDS ORDERED: Famotidine 20 MG/2 ML VIAL IVP SCH (21:00)
== END 2017-08-09 14:23 | DRG 196 ==
LOC: 3BNU 13:38 → EMEROO 13:38 → 3BNU 19:00 → SUATTDRO 20:05
PROVIDERS: ADMIT Registered Nurse; ATTEND Internal Medicine

== ENCOUNTER 2017-10-15 20:14 | Inpatient (IN) ==
[2017-10-15 21:13] LABS: Basophils # 0.1 K/mcL (0.0-0.2); Basophils % 0.9 %; Hematocrit 40.1 % (35.3-44.9); Hemoglobin 12.5 g/dL (11.5-15.4); Immature Granulocytes % 0.3 % (0-4); Immature Platelets 5.3 % (1.1-6.1); Lymphocytes # 1.4 K/mcL (0.6-4.6); Mean Corpuscular HGB Conc 31.2 g/dL (31.6-35.5); Mean Corpuscular Hemoglobin 27.2 pg (28.0-33.3); Mean Corpuscular Volume 87.4 fL (83.0-100.0); Monocytes # 0.5 K/mcL (0.0-1.3); Monocytes % 8.4 %; Neutrophils # 3.8 K/mcL (1.6-8.9); Platelet Count 285 K/mcL (140-400); Red Blood Count 4.59 M/mcL (3.82-4.97); Red Cell Distribution Width 17.2 % (11.5-14.5); Segmented Neutrophils % 65.4 %
--- NOTE | 2017-10-15 21:21 | Emergency Department Note ---
START Narrative - START START: I examined this patient and my medical decision-making was reviewed with the Resident Physician. I agree with the documented findings, disposition and treatment plan as described except to the extent set forth below. 86-year-old female presents emergency room for chest pain shortness of breath. Patient was recently at a rehabilitation facility for compression fracture of her lumbar spine. She presents to our ER today for chest pain shortness of breath. She had a recent seizure that was newly diagnosed about 2 weeks ago at the half-way. She received CPR during her seizure as she states she was not breathing. Ever since then she has had midsternal chest pain. Tonight she felt like it was worse and she felt more short of breath. She was just discharged from the half-way rehabilitation facility this evening. She denies any cough or sputum production. No fevers or chills. No history of DVT or PE. We will check lab work as well as a CT of the chest to evaluate for any rib fractures or any pulmonary embolus.
[2017-10-15 21:25] LABS: BUN/Creatinine Ratio 21 (6-26); Blood Urea Nitrogen 18 mg/dL (7-20); Calcium 10.6 mg/dL (8.6-10.8); Carbon Dioxide 33 mEq/L (19-29); Chloride 100 mEq/L (98-109); Glucose 210 mg/dL (70-99); Osmolality,Calculated 304 (280-300); Potassium 3.6 mEq/L (3.5-4.5); Sodium 143 mEq/L (136-145); eGFR For African Americans > 60 (> 60); eGFR For Non-African Americans > 60 (> 60)
--- NOTE | 2017-10-15 21:51 | Emergency Department Note ---
Disposition Clinical Impression: SOB (shortness of breath) Sternal fracture Qualifiers: Encounter type: initial encounter Sternal location: unspecified Fracture type: closed Qualified Code(s): S22.20XA - Unspecified fracture of sternum, initial encounter for closed fracture Chest pain Qualifiers: Chest pain type: unspecified Qualified Code(s): R07.9 - Chest pain, unspecified Disposition: Admitted As Inpatient Referrals: Jean Joseph MD [Primary Care Provider] - Forms: ED Satisfaction Letter Time of Disposition: 22:48 General Adult HPI - General Chief complaint: ED Chest Pain Stated complaint: SOB, CP Time Seen by Provider: 10/15/17 20:26 Source: patient, family Mode of arrival: ambulatory Limitations: no limitations Nursing Notes Reviewed: Yes Vital Signs Reviewed: Yes - History of Present Illness HPI Narrative: 78-year-old female presenting to the emergency Department chief complaint of chest pain and shortness of breath. Patient was recently discharged from a senior living facility due to compression fractures. Patient states last she was in the senior living facility she had a seizure and received chest compressions. This is approximately 2 weeks ago. Patient states since then she has been having chest wall pain and increasing in shortness of breath. She states she has pain when she takes a deep breath. Patient denies any history of DVT or PE although she has been immobile since the compression fractures. She denies being on any hormonal replacement therapy. Patient does state she has a history of CHF and hypertension but otherwise has no significant past medical history. She states the chest pain is reproducible on palpation. It does not radiate. She has been taking Toradol and Tylenol at home with no relief. She states the pain is constant. Pain Scale: 8 - Related Data Home Medications Medication Instructions Recorded Confirmed Amlodipine Besylate 5 mg PO QAM 05/13/16 09/16/17 Aspirin 81 mg PO DAILY 05/13/16 09/16/17 Atenolol [Tenormin] 50 mg PO DAILY 05/13/16 09/16/17 Calcium Carbonate [Calcium] 500 mg PO QAM 05/13/16 09/16/17 Cholecalciferol (D-3) [Vitamin D] 1,000 unit PO DAILY 05/13/16 09/16/17 Levothyroxine [Synthroid] 25 mcg PO 0605/13/16 09/16/17 Rosuvastatin Calcium [Crestor] 5 mg PO QAM 05/13/16 09/16/17 metFORMIN [Glucophage] 500 mg PO BIDWM 05/13/16 09/16/17 Acetaminophen/Butalbital/Caffe 1 tab PO Q6H PRN 07/22/16 09/16/17 [Fioricet] Nitroglycerin [Nitrostat] 0.4 mg SL Q5M PRN 07/22/16 09/16/17 Glimepiride [Amaryl] 1 mg PO DAILY 08/07/17 09/16/17 Calcitonin-[place], Synthetic 200 unit IJ DAILY 09/16/17 09/16/17 [Miacalcin] Docusate [Colace] 100 mg PO DAILY 09/16/17 09/16/17 Ropinirole HCl [Requip] 0.25 mg PO HS PRN 09/16/17 09/16/17 Tramadol HCl [Ultram] 100 mg PO BID PRN 09/16/17 09/16/17 Previous Rx's Medication Instructions Recorded Metaxalone [Skelaxin] 800 mg PO QID #21 tablet 05/30/16 Ibuprofen [Motrin] 200 mg PO TID PRN #0 07/23/16 Magnesium Oxide [Mag-Ox] 400 mg PO DAILY #20 tablet 07/23/16 Potassium Chloride 10 meq PO DAILY #10 tab.er.prt 07/23/16 Azithromycin [Zithromax] 250 mg PO DAILY #4 tablet 08/09/17 Ferrous Sulfate 325 mg PO BIDWM tablet 08/09/17 LORazepam [Ativan] 1 mg PO TID PRN #15 08/09/17 Allergies Allergy/AdvReac Type Severity Reaction Status Date / Time codeine Allergy Hallucinati Verified 10/15/17 20:32 [From Tylenol-Codeine #3] ng gabapentin [From Neurontin] Allergy See Verified 10/15/17 20:32 Comments hydrocodone [From Vicodin] Allergy Dizziness Verified 10/15/17 20:32 levomefolate calcium Allergy Dizziness Verified 10/15/17 20:32 [From Metanx] mecobalamin [From Metanx] Allergy Dizziness Verified 10/15/17 20:32 Penicillins [PCN] Allergy Hives Verified 10/15/17 20:32 pregabalin [From Lyrica] Allergy Hives Verified 10/15/17 20:32 propoxyphene Allergy Hallucinati Verified 10/15/17 20:32 [From Darvocet-N] ng pyridoxal phosphate Allergy Dizziness Verified 10/15/17 20:32 [From Metanx] All systems ED: reviewed and negative except as stated. Constitutional: Denies: fever, chills Eyes: Reports: as per HPI ENT ED: Reports: as per HPI Cardiovascular: Reports: chest pain, dyspnea on exertion. Denies: palpitations Respiratory: Reports: dyspnea. Denies: cough, wheezes, hemoptysis Gastrointestinal: Denies: abdominal pain, nausea, vomiting Genitourinary: Reports: as per HPI Musculoskeletal: Reports: as per HPI Integumentary: Denies: rash, abrasion, lesions Neurological: Reports: as per HPI Psychiatric: Reports: as per HPI Endocrine: Reports: as per HPI Hematological/Lymphatic: Reports: as per HPI Allergic/Immunologic: Reports: as per HPI Past Medical History - Past Medical History Attestation: Yes The following information was validated with the patient. Medical history: Reports: arthritis, coronary artery disease, diabetes, hyperlipidemia, hypertension, peripheral artery disease, seizures, thyroid disease, TIA Surgical history: Reports: appendectomy, other Psychiatric history: Reports: anxiety, depression MATERIAL HANDLER history: Reports: bilateral tubal ligation - Social History Smoking Status: Never smoker Smokeless Tobacco Status: No Alcohol use: Reports: none Drug use: Reports: none Physical Exam - General Limitations: no limitations General appearance: alert, in no apparent distress - Head Head exam: atraumatic, normocephalic, normal inspection - Eye Eye exam: Present: normal appearance. Absent: scleral icterus, conjunctival injection - Neck Neck exam: Present: normal inspection, full ROM. Absent: tenderness, meningismus - Chest Chest inspection: Present: normal inspection, symmetric chest wall rise, tenderness (Anterior tenderness located along the sternal borders). Absent: rash - Respiratory Respiratory exam: Present: normal lung sounds bilaterally. Absent: respiratory distress, wheezes - Cardiovascular Cardiovascular exam: Present: regular rate, normal rhythm, normal heart sounds - Abdominal Exam Abdominal exam: Present: soft, Non-Tender. Absent: distention, guarding, rebound - Extremities Exam Extremities exam: Present: normal inspection, full ROM - Neurological Exam Neurological exam: Present: alert, oriented X3 - Psychiatric Psychiatric exam: Present: normal affect, normal mood - Skin Skin exam: Present: warm, intact Course Course Narrative: 78-year-old female presenting with shortness of breath and chest pain approximately 3 weeks after receiving chest compressions. Patient states she does not know if her heart actually stopped. Concern for cardiac etiology versus PE versus pneumonia. We will obtain basic lab work including troponin, EKG and complete a CT of the chest. Patient's alert and oriented 3 in the room. Vital signs are stable. Family members at bedside and patient agree with this plan. Disposition pending results. - Reevaluation(s) Reevaluation #1: Basic lab work is come back within normal limits. CTA does show a sternal fracture with mass effect in the mediastinum. I spoke with the conditioner tumbler operator metal precision machine assembler Dr. Yates who agrees to see the patient here. He believe she needs an echo in the morning. I spoke with the hospitalist on-call Dr. Sal who agrees to accept the patient at this time. Patient's alert and oriented 3 and room stable vital signs at this time. Patient and family at bedside agree with this plan. Vital Signs Temperature 98.2 F 10/15/17 20:19 Pulse Rate 91 10/15/17 20:19 Respiratory Rate 20 10/15/17 20:19 Blood Pressure 102/65 10/15/17 20:19 O2 Sat by Pulse Oximetry 98 10/15/17 20:19 Temperature 98.2 F 10/15/17 20:19 Pulse Rate 95 10/15/17 22:38 Respiratory Rate 16 10/15/17 22:38 Blood Pressure 134/79 10/15/17 22:38 O2 Sat by Pulse Oximetry 95 10/15/17 22:38 Oxygen Delivery Oxygen Delivery Room Air Medical Decision Making - Lab Data Result diagrams: 10/15/17 21:05 10/15/17 21:05 Lab Results 10/15/17 10/15/17 10/15/17 Range/Units 21:05 21:05 21:05 WBC 5.7 (4.3-11.1) K/mcL RBC 4.59 (3.82-4.97) M/mcL Hgb 12.5 (11.5-15.4) g/dL Hct 40.1 (35.3-44.9) % MCV 87.4 (83.0-100.0) fL MCH 27.2 L (28.0-33.3) pg MCHC 31.2 L (31.6-35.5) g/dL RDW 17.2 H (11.5-14.5) % Plt Count 285 (140-400) K/mcL MPV 10.0 (9.4-12.4) fL Immature Gran % 0.3 (0-4) % Seg Neutrophils % 65.4 % Lymphocytes % 25.0 % Monocytes % 8.4 % Eosinophils % 0.0 % Basophils % 0.9 % Neutrophils # 3.8 (1.6-8.9) K/mcL Lymphocytes # 1.4 (0.6-4.6) K/mcL Monocytes # 0.5 (0.0-1.3) K/mcL Eosinophils # 0.0 (0.0-0.6) K/mcL Basophils # 0.1 (0.0-0.2) K/mcL Immature Plt Fraction 5.3 (1.1-6.1) % Sodium 143 (136-145) mEq/L Potassium 3.6 (3.5-4.5) mEq/L Chloride 100 (98-109) mEq/L Carbon Dioxide 33 H (19-29) mEq/L BUN 18 (7-20) mg/dL Creatinine 0.86 (0.57-1.11) mg/dL Est GFR ( Amer) > 60 (> 60) Est GFR (Non-Af Amer) > 60 (> 60) BUN/Creatinine Ratio 21 (6-26) Glucose 210 H (70-99) mg/dL Calculated Osmolality 304 H (280-300) Calcium 10.6 (8.6-10.8) mg/dL Troponin I 0.01 (0-0.03) ng/mL - EKG Data EKG #1 EKG attestation: Yes I reviewed and interpreted this EKG. EKG results narrative: Sinus tachycardia. 110 bpm. ME interval 163, QRS 79, QT 390. Right atrial enlargement, left atrial enlargement, left ventricular hypertrophy. Left axis deviation. New ST segment depressions noted in V6. No reciprocal changes noted. When compared to previous EKG completed on September [address] segment depression but no other significant new changes.
[2017-10-15] MEDS ORDERED: *HR* OxyCODONE Immed Rel 5 MG TABLET PO PRN (23:31)
[2017-10-15] MEDS ORDERED: Ondansetron 4 MG/2 ML VIAL IVP PRN (23:31)
[2017-10-15] MEDS ORDERED: Naloxone 0.4 MG/ML INJ IVP PRN (23:31)
[2017-10-15] MEDS ORDERED: *HR* Morphine 2 MG/ML SYRINGE IVP PRN (23:31)
--- NOTE | 2017-10-15 23:43 | Internal Med History&Physical ---
Date of Encounter: 10/16/17 Time of Encounter: 23:43 Assessment and Plan (1) Seizure disorder Current visit: Yes Status: Acute Per family member the patient takes a seizure prophylaxis medication however I do not see in the antiseizure medications and her home medication list. However at this time her medication list has not been confirmed. Family member does not know what seizure medication the patient takes. Will confirm her home meds. We will obtain records from [facility] regarding her hospital stay and discharge medications. (2) Hypertension Current visit: No Status: Chronic Continue home meds. Qualifiers: Hypertension type: essential hypertension Qualified Code(s): I10 - Essential (primary) hypertension (3) Hyperlipidemia Current visit: No Status: Chronic Qualifiers: Hyperlipidemia type: unspecified Qualified Code(s): E78.5 - Hyperlipidemia , unspecified (4) Diabetes Current visit: No Status: Chronic Hold oral antidiabetic medication. Check hemoglobin A1c. Start Levemir and insulin sliding scale low-dose. Qualifiers: Diabetes mellitus type: type 2 Diabetes mellitus complication status: with unspecified complications Diabetes mellitus fpc insulin use: without fpc use Qualified Code(s): E11.8 - Type 2 diabetes mellitus with unspecified complications (5) Compression fx, thoracic spine Current visit: No Status: Acute We will obtain records from [facility] including any imaging studies. If no MRI has been done we will order MRI of the thoracic spine to evaluate for multiple compression fractures. Qualifiers: Encounter type: initial encounter Fracture type: closed Qualified Code(s) : S22.000A - Wedge compression fracture of unspecified thoracic vertebra, initial encounter for closed fracture (6) Sternal fracture Current visit: Yes Status: Acute CT shows a displaced sternal fracture. This likely resulted from having CPR performed on the patient 1 month ago. She reports pain ever since. CT also shows mass effect on the mediastinum predominantly affecting the right atrium. This is concerning as it could alter hemodynamics. We will obtain echocardiogram and consult cardiology in the morning. Consider consulting cardiothoracic surgery in the morning. Qualifiers: Encounter type: initial encounter Sternal location: unspecified Fracture type: closed Qualified Code(s): S22.20XA - Unspecified fracture of sternum, initial encounter for closed fracture (7) Chest pain Current visit: Yes Status: Acute Likely secondary to sternal fracture. We will trend troponins to rule out ACS. Qualifiers: Chest pain type: unspecified Qualified Code(s): R07.9 - Chest pain, unspecified Internal Medicine - H&P: HPI Chief complaint: Chest pain Admitted From: Emergency Dept Plans for Post Hospital Care: Home History of present illness: Ms. Seals is a 86 year old female with past medical history significant for hypertension, diabetes and dyslipidemia who presented to the hospital for evaluation of chest pain. She reports midsternal severe, sharp chest pain, worse with deep inspiration and coughing. She noticed worsening shortness of breath for the last 3 days which prompted her to come to the hospital. She has had no chest pain for the past 1 month since she had CPR performed on her while she was in group home. Per family report she was at a group home 1 month ago and while trying to get out of bed she became lightheaded and passed out falling on the floor. She then had a seizure. The first responders perform CPR. She was brought to our mental emergency department and transferred to [facility]. She had recurrent seizures during the same night. She was later discharged to a different rehabilitation and she went home one week ago. A 10 point review of systems was negative except as above Past medical history hypertension and hyperlipidemia type 2 diabetes, seizure disorder. Family history was reviewed and found to be noncontributory due to the patient' s advanced age. Social history negative for toxic habits, patient lives independently with family support. Past Med Surg Social Fam HX - Past Medical History Medical history: arthritis, coronary artery disease, diabetes, hyperlipidemia, hypertension, peripheral artery disease, seizures, thyroid disease, TIA Psychiatric history: anxiety, depression - Past Surgical History Surgical History: appendectomy, other - Social History Smoking Status: Never smoker Smokeless Tobacco Status: No Alcohol use: none Drug use: none - Family History Father Living Status: Hx Family Cancer: Yes (Stomach) Mother Living Status: Hx Family Cardiac Disorders: Yes Brother Living Status: Still Living Hx Family Endocrine Disorder: Yes (DM) Sister Living Status: Hx Family Cancer: Yes (Colon) Internal Medicine - H&P: Meds Amlodipine Besylate 5 mg PO QAM 05/13/16 [History] Aspirin 81 mg PO DAILY 05/13/16 [History] Atenolol [Tenormin] 50 mg PO DAILY 05/13/16 [History] Calcium Carbonate [Calcium] 500 mg PO QAM 05/13/16 [History] Cholecalciferol (D-3) [Vitamin D] 1,000 unit PO DAILY 05/13/16 [History] Levothyroxine [Synthroid] 25 mcg PO 0630 05/13/16 [History] Rosuvastatin Calcium [Crestor] 5 mg PO QAM 05/13/16 [History] metFORMIN [Glucophage] 500 mg PO BIDWM 05/13/16 [History] Metaxalone [Skelaxin] 800 mg PO QID #21 tablet 05/30/16 [Rx] Acetaminophen/Butalbital/Caffe [Fioricet] 1 tab PO Q6H PRN 07/22/16 [History] Nitroglycerin [Nitrostat] 0.4 mg SL Q5M PRN 07/22/16 [History] Ibuprofen [Motrin] 200 mg PO TID PRN #0 07/23/16 [Rx] Magnesium Oxide [Mag-Ox] 400 mg PO DAILY #20 tablet 07/23/16 [Rx] Potassium Chloride 10 meq PO DAILY #10 tab.er.prt 07/23/16 [Rx] Glimepiride [Amaryl] 1 mg PO DAILY 08/07/17 [History] Azithromycin [Zithromax] 250 mg PO DAILY #4 tablet 08/09/17 [Rx] Ferrous Sulfate 325 mg PO BIDWM tablet 08/09/17 [Rx] LORazepam [Ativan] 1 mg PO TID PRN #15 08/09/17 [Rx] Calcitonin-[place], Synthetic [Miacalcin] 200 unit IJ DAILY 09/16/17 [History] Docusate [Colace] 100 mg PO DAILY 09/16/17 [History] Ropinirole HCl [Requip] 0.25 mg PO HS PRN 09/16/17 [History] Tramadol HCl [Ultram] 100 mg PO BID PRN 09/16/17 [History] 3 Allergy/AdvReac Type Severity Reaction Status Date / Time codeine Allergy Hallucinati Verified 10/15/17 20:32 [From Tylenol-Codeine #3] ng gabapentin [From Neurontin] Allergy See Verified 10/15/17 20:32 Comments hydrocodone [From Vicodin] Allergy Dizziness Verified 10/15/17 20:32 levomefolate calcium Allergy Dizziness Verified 10/15/17 20:32 [From Metanx] mecobalamin [From Metanx] Allergy Dizziness Verified 10/15/17 20:32 Penicillins [PCN] Allergy Hives Verified 10/15/17 20:32 pregabalin [From Lyrica] Allergy Hives Verified 10/15/17 20:32 propoxyphene Allergy Hallucinati Verified 10/15/17 20:32 [From Darvocet-N] ng pyridoxal phosphate Allergy Dizziness Verified 10/15/17 20:32 [From Metanx] All Systems PM: A 10-system review of systems was performed and is negative for pertinent findings except as documented above in the HPI. - Constitutional Vitals: Temp Pulse Resp BP Pulse Ox 98.2 F 95 16 134/79 95 10/15/17 20:19 10/15/17 22:38 10/15/17 22:38 10/15/17 22:38 10/15/17 22:38 General appearance: Present: A&O X 3, no acute distress, underweight - Head Head exam: Present: atraumatic, normocephalic - Respiratory Respiratory exam: Present: CTAB. Absent: accessory muscle use, rales, rhonchi, wheezes - Cardiovascular Cardiovascular exam: Present: RRR, +S1, +S2. Absent: diastolic murmur, gallop, rubs, systolic murmur - GI/Abdominal GI/Abdominal exam: Present: normal bowel sounds, soft, no peritoneal signs. Absent: distended, tenderness - Extremities Exam Extremities exam: Present: warm, radial pulses palpable and symmetrical. Absent : calf tenderness, cyanotic, pedal edema - Back Exam Additional comments: Profound kyphoscoliosis. Tenderness to palpation over the sternum with stepdown deformity in the midportion of the sternum - Neurological Exam Neurological exam: Present: CN II-XII intact, oriented X3, no focal deficits. Absent: pronater drift, facial droop, speech deficit - Skin Skin exam: Present: dry, intact Internal Med - H&P Results - Labs CBC & Chem 7: 10/15/17 21:05 10/15/17 21:05 - EKG Data -: EKG Interpreted by Myself EKG shows normal: sinus rhythm (100 bpm, LVH with repolarization changes, essentially unchanged from previous EKG.) Rate: tachycardia
[2017-10-15] MEDS ORDERED: Dextrose Gel 15 GM PO PRN ×2 (23:44)
[2017-10-15] MEDS ORDERED: *HR* Dextrose 50 % in Water (Syg) 50 ML SYRINGE IVP PRN (23:44)
[2017-10-15] MEDS ORDERED: D5% in Water 1,000 ML IVC PRN (23:44)
[2017-10-16 01:24] LABS: Hemoglobin A1C 5.9 %
[2017-10-16] MEDS ORDERED: *HR* HYDROmorphone 2 MG/ML SYRINGE IVP PRN (01:55)
[2017-10-16] MEDS: Insulin LISPRO 300 UNITS/3 ML VIAL SQ SCH ×5 (02:03→20:39)
[2017-10-16] MEDS: Insulin DETEMIR 100 UNIT/ML X5UNITS SQ SCH ×2 (02:43→20:38)
[2017-10-16] MEDS ORDERED: traMADol 50 MG TABLET PO PRN ×2 (03:24→08:11)
[2017-10-16] MEDS: levETIRAcetam 250 MG TABLET PO SCH ×3 (03:54→17:06)
[2017-10-16] MEDS ORDERED: *HR* Metoprolol 5 MG/5 ML VIAL IVP ONE ×2 (04:28→08:11)
[2017-10-16 05:44] LABS: Basophils % 0.6 %; Hematocrit 36.8 % (35.3-44.9); Hemoglobin 11.2 g/dL (11.5-15.4); Immature Granulocytes % 0.4 % (0-4); Lymphocytes # 1.2 K/mcL (0.6-4.6); Lymphocytes % 17.6 %; Mean Corpuscular HGB Conc 30.4 g/dL (31.6-35.5); Mean Corpuscular Hemoglobin 26.3 pg (28.0-33.3); Mean Corpuscular Volume 86.4 fL (83.0-100.0); Monocytes # 0.6 K/mcL (0.0-1.3); Monocytes % 8.9 %; Platelet Count 273 K/mcL (140-400); Red Blood Count 4.26 M/mcL (3.82-4.97); Red Cell Distribution Width 17.2 % (11.5-14.5); Segmented Neutrophils % 72.5 %
[2017-10-16 05:58] LABS: BUN/Creatinine Ratio 21 (6-26); Blood Urea Nitrogen 15 mg/dL (7-20); Calcium 10.1 mg/dL (8.6-10.8); Carbon Dioxide 31 mEq/L (19-29); Chloride 102 mEq/L (98-109); Glucose 161 mg/dL (70-99); Magnesium 1.6 mg/dL (1.6-2.6); Osmolality,Calculated 296 (280-300); Potassium 3.6 mEq/L (3.5-4.5); Sodium 141 mEq/L (136-145); eGFR For African Americans > 60 (> 60); eGFR For Non-African Americans > 60 (> 60)
[2017-10-16] MEDS: Levothyroxine 25 MCG TABLET PO SCH (06:04)
[2017-10-16] MEDS ORDERED: *HR* Metoprolol 5 MG/5 ML VIAL IVP PRN (08:06)
[2017-10-16] MEDS ORDERED: Lactulose Oral Soln 20 GM/30 ML UDC PO ONE (08:15)
[2017-10-16] MEDS: rOPINIRole 0.25 MG TABLET PO SCH ×3 (08:51→20:35)
[2017-10-16] MEDS: Magnesium Oxide 400 MG TABLET PO SCH (08:51)
[2017-10-16] MEDS: Aspirin Enteric Coated 81 MG Tablet PO SCH (08:51)
[2017-10-16] MEDS: NIFEdipine XL (24 HR) 60 MG TAB.ER.24 PO SCH (08:51)
[2017-10-16] MEDS: Lisinopril 20 MG TABLET PO SCH (08:51)
[2017-10-16] MEDS: Acetaminophen 325 MG TABLET PO PRN ×2 (08:52→17:06)
[2017-10-16] MEDS: Aspirin 81 MG TAB.CHEW PO SCH (08:52)
[2017-10-16] MEDS ORDERED: amLODIPine 5 MG TABLET PO SCH (09:00)
--- NOTE | 2017-10-16 09:10 | Internal Med Progress Note ---
<Mazin Carlton - Last Filed: 10/16/17 10:38> Date of Encounter: 10/16/17 Time of Encounter: 09:08 - Assessment and plan (1) Chest pain Current Visit: No Status: Resolved Assessment and plan: Likely related to sternal fracture status post CPR. On CT there is some mass effect of the cardiac structures. Echocardiogram will be obtained. Given the patient's wishes to be DNR CCA/DNI as well as her chronic medical conditions she will likely be a poor surgical candidate. Depending on echocardiogram findings, if there is impingement of cardiac flow mechanics, may need to consult cardiothoracic surgery. Continue with pain control with tramadol. Qualifiers: Chest pain type: other chest pain Qualified Code(s): R07.89 - Other chest pain; R07.8 - Other chest pain (2) Sternal fracture Current Visit: Yes Status: Acute Assessment and plan: Secondary to CPR as discussed above. Qualifiers: Encounter type: initial encounter Sternal location: body of sternum Fracture type: closed Qualified Code(s): S22.22XA - Fracture of body of sternum, initial encounter for closed fracture (3) Seizure disorder Current Visit: Yes Status: Acute Assessment and plan: Unclear if the patient has a true seizure disorder. She did have a syncopal episode which led to CPR being performed and there is concern that this was a seizure. After discussion with the patient and feel that this is unlikely cannot be excluded. Patient was recently diagnosed about a month ago with PRES due to hypertension, these symptoms appeared to resolve. Continue Keppra for now and continue to monitor. (4) Pulmonary fibrosis Current Visit: No Status: Chronic Assessment and plan: Chronic. Seen on previous CT scans. Patient been seen by pulmonology in the past and recommend supportive measures. Given her wishes to be DNR CCA/DNI and continue with supportive oxygen supplementation and when necessary bronchodilators. Chest percussive therapy is also an option however given her sternal fractures and musculoskeletal chest pain as discussed above this would likely be too uncomfortable for the patient to tolerate. (5) Compression fx, thoracic spine Current Visit: No Status: Acute Assessment and plan: Compared to the CT scan performed in June 2017 his compression fractures appear to be new. Likely contributing to the patient's pain. Qualifiers: Encounter type: initial encounter Fracture type: closed Qualified Code(s) : S22.000A - Wedge compression fracture of unspecified thoracic vertebra, initial encounter for closed fracture (6) Hyperlipidemia Current Visit: No Status: Chronic Assessment and plan: Stable. Continue home medications. Qualifiers: Hyperlipidemia type: unspecified Qualified Code(s): E78.5 - Hyperlipidemia , unspecified (7) Diabetes Current Visit: No Status: Chronic Assessment and plan: Blood sugars under good control. Continue sliding scale insulin. Qualifiers: Diabetes mellitus type: type 2 Diabetes mellitus complication status: with unspecified complications Diabetes mellitus buttermaker continuous churn insulin use: without mcfp use Qualified Code(s): E11.8 - Type 2 diabetes mellitus with unspecified complications - Subjective Interval history: Patient seen and examined at bedside. Patient reports constant chest pain that is unchanged since admission. She states it wraps around her entire chest and to the center of her chest as well as her back. She states it is worse with deep breath. Her chest hurts with movement as well. She also reports constipation. She denies shortness of breath, cough, fever, chills, abdominal pain, nausea, vomiting. - Constitutional Vitals: Temp Pulse Resp BP Pulse Ox 97.7 F 92 16 153/97 100 10/16/17 07:31 10/16/17 07:31 10/16/17 07:31 10/16/17 07:31 10/16/17 07:31 General appearance: Present: A&O X 3, no acute distress, underweight - Respiratory Respiratory exam: Present: CTAB. Absent: rales, rhonchi, wheezes - Cardiovascular Cardiovascular exam: Present: RRR. Absent: gallop, rubs, systolic murmur Additional comments: Chest wall tenderness in the center of her chest as well as lateral chest bilaterally. - GI/Abdominal GI/Abdominal exam: Present: diminished bowel sounds, soft. Absent: distended, tenderness - Extremities Exam Extremities exam: Present: warm. Absent: pedal edema, tenderness - Back Exam Additional comments: Kyphosis noted. - Neurological Exam Neurological exam: Present: alert, CN II-XII intact, oriented X3, no focal deficits Internal Medicine: Result - Labs CBC & Chem 7: 10/16/17 05:35 10/16/17 05:35 Labs: Short CBC 10/16/17 Range/Units 05:35 WBC 6.9 (4.3-11.1) K/mcL Hgb 11.2 L (11.5-15.4) g/dL Hct 36.8 (35.3-44.9) % Plt Count 273 (140-400) K/mcL Neutrophils # 5.0 (1.6-8.9) K/mcL [facility] 10/16/17 05:35 Sodium 141 Potassium 3.6 Chloride 102 Carbon Dioxide 31 H BUN 15 Creatinine 0.72 Glucose 161 H Calcium 10.1 Cardiac Enzymes 10/15/17 10/16/17 Range/Units 23:58 05:35 Troponin I 0.01 0.02 (0-0.03) ng/mL Consult Discharge Plan - Plan Referrals: Jean Joseph MD [Primary Care Provider] - <Dima Feldman H - Last Filed: 10/16/17 13:56> Date of Encounter: 10/16/17 - Constitutional Vitals: Temp Pulse Resp BP Pulse Ox 97.7 F 73 16 119/64 93 10/16/17 12:03 10/16/17 12:03 10/16/17 12:03 10/16/17 12:03 10/16/17 12:03 Internal Medicine: Result - Labs CBC & Chem 7: 10/16/17 05:35 10/16/17 05:35 Labs: Short CBC 10/16/17 Range/Units 05:35 WBC 6.9 (4.3-11.1) K/mcL Hgb 11.2 L (11.5-15.4) g/dL Hct 36.8 (35.3-44.9) % Plt Count 273 (140-400) K/mcL Neutrophils # 5.0 (1.6-8.9) K/mcL [facility] 10/16/17 05:35 Sodium 141 Potassium 3.6 Chloride 102 Carbon Dioxide 31 H BUN 15 Creatinine 0.72 Glucose 161 H Calcium 10.1 Cardiac Enzymes 10/15/17 10/16/17 Range/Units 23:58 05:35 Troponin I 0.01 0.02 (0-0.03) ng/mL - Attending Attestation Echo pending not a surgical candidate according to CT surgery/Dr Grey Sternal fracture likely the source of the patient's CP I examined this patient and my medical decision-making was reviewed with the Resident Physician. I agree with the documented findings, disposition and treatment plan as described except to the extent set forth below.
[2017-10-16] MEDS ORDERED: Ipratropium/Albuterol Neb 3 ML IH PRN (09:25)
--- NOTE | 2017-10-16 11:35 | Electrocardiograph Report ---
[place] [id number] Test Date: 2017-10-15 Pat Name: Jose Seals Department: 104 Room: 3A53 Gender: F Education Assistant: RENAN : 1930 Requested By: Roberta Jackman Order Number: [id number] Reading MD: Thomas Mckeon MD Measurements Intervals [place] Rate: 96 P: 74 [place]: 165 QRS: -43 QRSD: 80 T: 104 QT: 344 QTc: 398 Interpretive Statements SINUS RHYTHM RIGHT ATRIAL ENLARGEMENT LEFT ATRIAL ENLARGEMENT LEFT VENTRICULAR HYPERTROPHY AND ST-T CHANGE POSSIBLE ANTERIOR MYOCARDIAL INFARCTION, OF INDETERMINATE AGE INFERIOR MYOCARDIAL INFARCTION, PROBABLY OLD Electronically Signed On 10-16-2017 11:33:28 EST by Thomas Mckeon MD
--- NOTE | 2017-10-16 13:48 | Cardiology Consult Note ---
<Marco Olivo - Last Filed: 10/16/17 16:44> Date of Encounter: 10/16/17 Time of Encounter: 11:00 Assessment and Plan (1) Chest pain Current Visit: Yes Status: Acute Traumatic mechanism 3 weeks ago, chest compressions as per HPI. CTA finding of mass-effect on R atrium due to displaced sternal fracture-- without evidence of JVD, portal hypertension, LE edema. ECG: shows poor R wave progression, LVH Trops neg x2 Echocardiogram performed: read as LVEF 55%, nml LV size, thickness, function, nml R atrium size, mild diastolic dysfunction. Discussed with patient her chest pain symptoms different points through day, feels significantly better compared to yesterday 07/30 to <03/29. Plan: moderate-high surgical risk, family most interested in symptomatic control , if that can be done without surgery and the risks it involves, that the patient and family prefer conservative therapy. Family has left for the day, before echo resulted, will discuss possible cardiac workup (chest discomfort secondary to ischemia unlikely, but may consider pharmacologic stress testing) and goals of care tomorrow AM. Aware of diagnosis of PRES syndrome from [facility], recommend adequate BP control, consider orthostatics when patient more stable. Qualifiers: Chest pain type: unspecified Qualified Code(s): R07.9 - Chest pain, unspecified (2) Sternal fracture Current Visit: Yes Status: Acute Echo as above, goals of care as above. Patient METs <4 Hemodynamically stable, not anemic. Hx HTN, HLD, no known cardiomyopathy, echo results as above. Pt responding well to pain management. Qualifiers: Encounter type: initial encounter Sternal location: body of sternum Fracture type: closed Qualified Code(s): S22.22XA - Fracture of body of sternum, initial encounter for closed fracture (3) Hypertension Current Visit: No Status: Chronic Chronic condition. Continue atenolol. Pt normotensive. Qualifiers: Hypertension type: essential hypertension Qualified Code(s): I10 - Essential (primary) hypertension (4) Hyperlipidemia Current Visit: No Status: Chronic Chronic condition. Continue Simvastatin 5mg. Has not tried other statins/doses. No hx myopathy. Qualifiers: Hyperlipidemia type: unspecified Qualified Code(s): E78.5 - Hyperlipidemia , unspecified Discussion w patient/family: The assessment and plan as outlined above was discussed with the patient and/or family members who expressed understanding and agreement. All questions were answered. Thank you for involving us in the care of your patient. Please call with any questions. History of Present Illness Consult date: 10/16/17 Requesting physician: Roberto Brand Consult reason: Chest pain, mediastinal mass effect sternal fx Chief complaint: Chest pain History of present illness: Interval history: History is obtained from daughter Anni, accurate historian. Ms. Jose Seals, 78 y/o female, pmh HTN, HLD, osteoporosis, no known PA/TIA , presented to ED with cc c/p and richardson. 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 New onset and has not repeated. CPR was performed on patient by EMS at the time. She has had sharp chest pain mid-chest since then, it is worsened with palpation, unremitting. Anni reports patient was to undergo MRI for compression fracture of her spine prior to the fall, with intervention by orthopedic surgery, but did not do so after the fall/seizure/cprprior to this event, patient was able to ambulate up stairs independently with no exertional discomfort/dyspnea. Today: patient reports no change in pain perception of sternal pain, inspiration and movement worsen the pain. Denies pain radiating to the jaw or arm. No syncope or repeat of seizure event. Past Med Surg Social Fam HX - Past Medical History Medical history: arthritis, coronary artery disease, diabetes, hyperlipidemia, hypertension, peripheral artery disease, seizures, thyroid disease, TIA Psychiatric history: anxiety, depression - Past Surgical History Surgical History: appendectomy, other - Social History Smoking Status: Never smoker Smokeless Tobacco Status: No Alcohol use: none Drug use: none - Family History Father Living Status: Hx Family Cancer: Yes (Stomach) Mother Living Status: Hx Family Cardiac Disorders: Yes Brother Living Status: Still Living Hx Family Endocrine Disorder: Yes (DM) Sister Living Status: Hx Family Cancer: Yes (Colon) Medications and Allergies Aspirin 81 mg PO DAILY 05/13/16 [History] Atenolol [Tenormin] 50 mg PO DAILY 05/13/16 [History] Cholecalciferol (D-3) [Vitamin D] 1,000 unit PO DAILY 05/13/16 [History] Levothyroxine [Synthroid] 25 mcg PO 0630 05/13/16 [History] Rosuvastatin Calcium [Crestor] 5 mg PO QAM 05/13/16 [History] metFORMIN [Glucophage] 500 mg PO BIDWM 05/13/16 [History] Acetaminophen/Butalbital/Caffe [Fioricet] 1 tab PO Q6H PRN 07/22/16 [History] Ibuprofen [Motrin] 200 mg PO TID PRN #0 07/23/16 [Rx] Glimepiride [Amaryl] 1 mg PO DAILY 08/07/17 [History] Ferrous Sulfate 325 mg PO BIDWM tablet 08/09/17 [Rx] Calcitonin-[place], Synthetic [Miacalcin] 1 spr NS DAILY 09/16/17 [History] Docusate [Colace] 100 mg PO DAILY 09/16/17 [History] Ropinirole HCl [Requip] 0.25 mg PO TID 09/16/17 [History] Tramadol HCl [Ultram] 100 mg PO BID PRN 09/16/17 [History] Benzonatate [Tessalon] 100 mg PO TID PRN 10/16/17 [History] Cyanocobalamin (B-12) [Vitamin B12] 1,000 mcg PO DAILY 10/16/17 [History] Furosemide [Lasix] 20 mg PO DAILY 10/16/17 [History] LORazepam [Ativan] 0.5 mg PO TID 10/16/17 [History] Lisinopril [Zestril] 20 mg PO DAILY 10/16/17 [History] Melatonin 1 mg PO HS 10/16/17 [History] Nifedipine ER 10/16/17 [History] Thiamine (B-1) [Vitamin B-1] 100 mg PO DAILY 10/16/17 [History] levETIRAcetam [Keppra] 250 mg PO BID 10/16/17 [History] 3 Allergy/AdvReac Type Severity Reaction Status Date / Time codeine Allergy Hallucinati Verified 10/15/17 20:32 [From Tylenol-Codeine #3] ng gabapentin [From Neurontin] Allergy See Verified 10/15/17 20:32 Comments hydrocodone [From Vicodin] Allergy Dizziness Verified 10/15/17 20:32 levomefolate calcium Allergy Dizziness Verified 10/15/17 20:32 [From Metanx] mecobalamin [From Metanx] Allergy Dizziness Verified 10/15/17 20:32 Penicillins [PCN] Allergy Hives Verified 10/15/17 20:32 pregabalin [From Lyrica] Allergy Hives Verified 10/15/17 20:32 propoxyphene Allergy Hallucinati Verified 10/15/17 20:32 [From Darvocet-N] ng pyridoxal phosphate Allergy Dizziness Verified 10/15/17 20:32 [From Metanx] All Systems Review: A 10-system review of systems was performed and is negative for pertinent findings except as documented above in the HPI. - Constitutional Constitutional: no headache(s) - EENT Nose, mouth and throat: other (no jaw pain) - Cardiovascular Cardiovascular: other (chest pain on inspiration and movement) - Musculoskeletal Musculoskeletal: other (chest pain-sternal, with movement and inspiration) - Neurological Neurological: other (no facial droop, speech changes) Physical Examination Vital Signs, Last 4 Hours Temp Pulse Resp BP Pulse Ox 10/16/17 12:03 97.7 F 73 16 119/64 93 General: Conversant Neck: No JVD Cardiac: Reg Rate and Rhythm, No Murmur Lungs: No Wheeze, Rales, Rhonchi Neuro: Alert and responsive Musculoskeletal: Other (sternal tenderness, pain on deep inspiration) Extremities: No Clubbing, No Cyanosis, No Edema Results 10/16/17 05:35 10/16/17 05:35 Lab Results 10/15/17 10/16/17 10/16/17 23:58 05:35 05:35 WBC 6.9 Hgb 11.2 L Hct 36.8 Plt Count 273 Sodium 141 Potassium 3.6 Chloride 102 Carbon Dioxide 31 H BUN 15 Creatinine 0.72 Glucose 161 H Calcium 10.1 Magnesium 1.6 Troponin I 0.01 10/16/17 05:35 WBC Hgb Hct Plt Count Sodium Potassium Chloride Carbon Dioxide BUN Creatinine Glucose Calcium Magnesium Troponin I 0.02 Consult Discharge Plan - Plan Referrals: Jean Joseph MD [Primary Care Provider] - <Eleanor Medrano - Last Filed: 10/16/17 17:25> Date of Encounter: 10/16/17 - Attending Attestation 86-year-old female presents to the emergency department complaining of recent worsening dyspnea on exertion, and chest pain. She has a history of CPR for his seizure after a fall out of bed while in a shelter. Sternal fracture has been noted and echocardiogram revealed no hemodynamic compromise. She is also asymptomatic in regards to possible side effects of right atrial compression. In regards to her chest pain is atypical and she is a poor historian. There is likely a component related to her sternal fracture. However her dyspnea on exertion started recently seems to be concerning to her. This with her multiple cardiac risk factors including diabetes and hypertension make it difficult to rule out underlying ischemia. A chemical stress test seems reasonable if she is willing to proceed with invasive cardiac procedures. Family currently not available to discuss this. Assessment and Plan Discussion w patient/family: The assessment and plan as outlined above was discussed with the patient and/or family members who expressed understanding and agreement. All questions were answered. Thank you for involving us in the care of your patient. Please call with any questions. History of Present Illness History of present illness: Ms. Seals is a 86 year old female All Systems Review: A 10-system review of systems was performed and is negative for pertinent findings except as documented above in the HPI. Physical Examination Vital Signs, Last 4 Hours Temp Pulse Resp BP Pulse Ox 10/16/17 15:06 98.2 F 95 16 123/71 92 Results 10/16/17 05:35 10/16/17 05:35 Lab Results 10/15/17 10/16/17 10/16/17 23:58 05:35 05:35 WBC 6.9 Hgb 11.2 L Hct 36.8 Plt Count 273 Sodium 141 Potassium 3.6 Chloride 102 Carbon Dioxide 31 H BUN 15 Creatinine 0.72 Glucose 161 H Calcium 10.1 Magnesium 1.6 Troponin I 0.01 10/16/17 05:35 WBC Hgb Hct Plt Count Sodium Potassium Chloride Carbon Dioxide BUN Creatinine Glucose Calcium Magnesium Troponin I 0.02
[2017-10-16] MEDS: traMADol 50 MG TABLET PO PRN ×2 (14:57→20:35)
--- NOTE | 2017-10-16 20:07 | Electrocardiograph Report ---
[place] [address] Test Date: 2017-10-15 Pat Name: Jose Seals Department: 103 Room: 3A53 Gender: F Marketing Recruiter: TODD : 1930 Requested By: Alvaro Singh Order Number: [id number] Reading MD: Thomas Mckeon MD Measurements Intervals [place] Rate: 110 P: 79 [place]: 163 QRS: -64 QRSD: 79 T: 96 QT: 325 QTc: 390 Interpretive Statements SINUS TACHYCARDIA RIGHT ATRIAL ENLARGEMENT LEFT ATRIAL ENLARGEMENT LEFT VENTRICULAR HYPERTROPHY AND ST-T CHANGE ANTERIOR MYOCARDIAL INFARCTION, OF INDETERMINATE AGE INFERIOR MYOCARDIAL INFARCTION, PROBABLY OLD Electronically Signed On 10-16-2017 20:05:49 EST by Thomas Mckeon MD
--- NOTE | 2017-10-16 20:30 | Electrocardiograph Report ---
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
--- NOTE | 2017-10-16 20:30 | Electrocardiograph Report ---
[place] [id number] Test Date: 2017-10-16 Pat Name: Jose Seals Department: 115 Room: 3A53 Gender: F Focuser: ED : 1930 Requested By: Dima Feldman Order Number: [id number] Reading MD: Thomas Mckeon MD Measurements Intervals [place] Rate: 131 P: 80 [place]: 161 QRS: -51 QRSD: 86 T: 91 QT: 295 QTc: 372 Interpretive Statements SINUS TACHYCARDIA LEFT VENTRICULAR HYPERTROPHY AND ST-T CHANGE POSSIBLE ANTERIOR MYOCARDIAL INFARCTION, OF INDETERMINATE AGE Electronically Signed On 10-16-2017 20:28:34 EST by Thomas Mckeon MD
[2017-10-17] MEDS: traMADol 50 MG TABLET PO PRN ×2 (03:51→11:10)
[2017-10-17] MEDS: levETIRAcetam 250 MG TABLET PO SCH ×2 (05:35→17:59)
[2017-10-17] MEDS: Levothyroxine 25 MCG TABLET PO SCH (05:35)
[2017-10-17] MEDS ORDERED: Levothyroxine 25 MCG TABLET PO SCH (06:30)
[2017-10-17] MEDS: Insulin LISPRO 300 UNITS/3 ML VIAL SQ SCH ×3 (08:27→17:59)
[2017-10-17] MEDS: Aspirin Enteric Coated 81 MG Tablet PO SCH (08:55)
[2017-10-17] MEDS: rOPINIRole 0.25 MG TABLET PO SCH ×3 (08:56→22:51)
[2017-10-17] MEDS: NIFEdipine XL (24 HR) 60 MG TAB.ER.24 PO SCH (08:56)
[2017-10-17] MEDS: Magnesium Oxide 400 MG TABLET PO SCH (08:56)
[2017-10-17] MEDS: Aspirin 81 MG TAB.CHEW PO SCH (08:57)
[2017-10-17] MEDS: Lisinopril 20 MG TABLET PO SCH (08:57)
--- NOTE | 2017-10-17 11:04 | Cardiology Progress Note ---
Date of Encounter: 10/17/17 Time of Encounter: 09:00 Assessment and Plan (1) Chest pain Current Visit: Yes Status: Acute Traumatic mechanism 3 weeks ago, chest compressions as per HPI. CTA finding of mass-effect on R atrium due to displaced sternal fracture-- without evidence of JVD, portal hypertension, LE edema. ECG: shows poor R wave progression, LVH Trops neg x2 Echocardiogram performed: read as LVEF 55%, nml LV size, thickness, function, nml R atrium size, mild diastolic dysfunction. Plan: moderate-high surgical risk, family most interested in symptomatic control , if that can be done without surgery and the risks it involves, that the patient and family prefer conservative therapy. Daughter (medical power of trust and estates attorney) and patient agreeable to pharmacologic stress testing. Discussed the concept/risks/benefits of angiogram/catheterization if ischemia is demonstrated with daughter--she notes that the DNR-CCA-DNI code was set after the fall that lead to CPR and that she is open to the idea of changing the code to FULL CODE temporarily during a cath or surgery with full knowledge that patient has the risk of needing all forms of resuscitative effort in the event of pt coding. She states that if there is ischemia uncovered via stress test that can be intervened upon with cath/stenting, acknowledgement of risk of pt coding//intubation/resuscitation including CPR are worth consenting for with a temporary change in code status for duration of procedure. Qualifiers: Chest pain type: unspecified Qualified Code(s): R07.9 - Chest pain, unspecified (2) Sternal fracture Current Visit: Yes Status: Acute Echo as above, goals of care as above. Patient METs <4 Hemodynamically stable, not anemic. Hx HTN, HLD, no known cardiomyopathy, echo results as above. Pt responding well to pain management. Anni, daughter, today indicates she is generally stoic (she has been trying to have her be as accurate as possible regarding pain symptoms) Pt was being evaluated by Dr. Francisco De La Torre with [facility] in July for possible T6 compression fracture with possible cementing/ kyphoplasty, MR thoracic spine was ordered during their appt 09/08, had not been completed due to patient's recent senior care/fall/cpr event. Family feels they may return to that in the future acknowledging that her candidacy for surgery/procedures in general is questionable. Qualifiers: Encounter type: initial encounter Sternal location: body of sternum Fracture type: closed Qualified Code(s): S22.22XA - Fracture of body of sternum, initial encounter for closed fracture (3) Hypertension Current Visit: No Status: Chronic Chronic condition. Continue atenolol. Pt normotensive. Qualifiers: Hypertension type: essential hypertension Qualified Code(s): I10 - Essential (primary) hypertension (4) Hyperlipidemia Current Visit: No Status: Chronic Chronic condition. Continue Simvastatin 5mg. Has not tried other statins/doses. No hx myopathy. Qualifiers: Hyperlipidemia type: unspecified Qualified Code(s): E78.5 - Hyperlipidemia , unspecified Discussion w patient/family: The assessment and plan as outlined above was discussed with the patient and/or family members who expressed understanding and agreement. All questions were answered. Thank you for involving us in the care of your patient. Please call with any questions. Subjective Principal diagnosis: Chest pain, displaced sternal fracture Interval history: No new complaints, pain comes and goes in intensity. Patient able to go to commode independently, occasionally gets up at night at the worry of nursing staff. Discussion held with patient and family to rule out ischemic component to shortness of breath on presentation. Objective Vital Signs, Last 4 Hours Temp Pulse Resp BP Pulse Ox 10/17/17 09:07 93 10/17/17 07:57 98.2 F 86 16 137/72 93 General: No Apparent Distress HEENT: Atraumatic Neck: No JVD, Normal carotid pulses Cardiac: Reg Rate and Rhythm, Normal S1 and S2 Lungs: No Wheeze, Rales, Rhonchi Musculoskeletal: Other (chest wall tenderness, sternal) Extremities: No Clubbing, No Cyanosis, No Edema Results 10/16/17 05:35 10/16/17 05:35 Consult Discharge Plan - Plan Referrals: Jean Joseph MD [Primary Care Provider] -
[2017-10-17] MEDS ORDERED: *HR* Morphine 2 MG/ML SYRINGE IVP ONE (14:16)
--- NOTE | 2017-10-17 14:43 | Internal Med Progress Note ---
<Jase Monique - Last Filed: 10/17/17 14:41> Date of Encounter: 10/17/17 Time of Encounter: 14:41 - Assessment and plan (1) Chest pain Current Visit: Yes Status: Acute Assessment and plan: Likely related to sternal fracture status post CPR. On CT there is some mass effect of the cardiac structures. Echocardiogram demonstrated left ventricular ejection fraction 55%, normal left ventricular chamber size wall thickness and function. Mild left ventricular diastolic dysfunction. Normal right ventricular structure and function. No evidence of pulmonary hypertension no significant valvular dysfunction. Continue with pain control with tramadol. Cardiology is evaluating the patient, determining a moderate to high surgical risk. Cardiology plans for cardiac stress test tomorrow potential LHC if ischemia is demonstrated. - Given patient's potential findings tomorrow patient's family in quitting daughter is just to discuss other options if there are no significant cardiac findings. Plan: - NPO - Cardiac stress test tomorrow - Potential LHC given findings. Qualifiers: Chest pain type: unspecified Qualified Code(s): R07.9 - Chest pain, unspecified (2) Sternal fracture Current Visit: Yes Status: Acute Assessment and plan: Secondary to CPR as discussed above. Qualifiers: Encounter type: initial encounter Sternal location: body of sternum Fracture type: closed Qualified Code(s): S22.22XA - Fracture of body of sternum, initial encounter for closed fracture (3) Hyperlipidemia Current Visit: No Status: Chronic Assessment and plan: Stable. Continue home medications. Qualifiers: Hyperlipidemia type: unspecified Qualified Code(s): E78.5 - Hyperlipidemia , unspecified (4) Diabetes Current Visit: No Status: Chronic Assessment and plan: Blood sugars under good control. Continue sliding scale insulin. 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 Seen on previous CT scans. Patient been seen by pulmonology in the past and recommend supportive measures. Given her wishes to be DNR CCA/DNI and continue with supportive oxygen supplementation and when necessary bronchodilators. Chest percussive therapy is also an option however given her sternal fractures and musculoskeletal chest pain as discussed above this would likely be too uncomfortable for the patient to tolerate. (6) Compression fx, thoracic spine Current Visit: No Status: Acute Assessment and plan: Compared to the CT scan performed in June 2017 his compression fractures appear to be new. Likely contributing to the patient's pain. Qualifiers: Encounter type: initial encounter Fracture type: closed Qualified Code(s) : S22.000A - Wedge compression fracture of unspecified thoracic vertebra, initial encounter for closed fracture (7) Seizure disorder Current Visit: Yes Status: Acute Assessment and plan: Unclear if the patient has a true seizure disorder. She did have a syncopal episode which led to CPR being performed and there is concern that this was a seizure. After discussion with the patient and feel that this is unlikely cannot be excluded. Patient was recently diagnosed about a month ago with PRES due to hypertension, these symptoms appeared to resolve. Continue Keppra for now and continue to monitor. - Subjective Interval history: Mrs. Seals 86-year-old female has been seen and evaluated patient bedside this morning. Her daughter and son-in-law were at bedside. She continues to have chest discomfort which she states starts on the left side of her chest and radiates across the anterior upper chest around the right side. She denies any fevers chills sweating palpitations shortness of breath nausea vomiting diarrhea or constipation. She denies feeling faint or any other concerning symptoms or signs. Her pain is been well-tolerated on tramadol until just recently where she feels that the pain is increased slightly. We had a discussion regarding her current state of health, she is to undergo cardiac stress test tomorrow. We discussed her current anatomical adjustments secondary to CPR and her broken sternum. They wish to discuss further potential options after her stress test is read tomorrow. - Constitutional Vitals: Temp Pulse Resp BP Pulse Ox 98.2 F 86 16 137/72 93 10/17/17 07:57 10/17/17 07:57 10/17/17 07:57 10/17/17 07:57 10/17/17 09:07 General appearance: Present: A&O X 3, no acute distress, underweight Exam: General: Patient alert, awake, oriented 3, interactive, in no acute distress HEENT: Normocephalic, atraumatic, oral mucosa moist, neck supple trachea midline no palpable lymphadenopathy, no thyromegaly. Chest: Asymmetrical, deviated sternum and depressed left side of her chest secondary to CPR. Cardiac: Regular rate and rhythm, positive S1 and S2. no bruits appreciated bilateral carotids, Radial pulses 2+ bilateral, posterior tibial and dorsal pedal pulses 2+ bilateral. Respiratory: Clear to auscultation all lung ansari Abdomen: Soft, nontender, positive bowel sounds, no palpable masses appreciated on examination Extremities: Symmetric bilateral, bilateral lower extremities without erythema or edema patient moving all 4 extremities spontaneously. Significant kyphosis Neurologic: No focal deficits appreciated on examination. Face symmetric, muscle strength symmetric bilateral upper and lower extremities. Internal Medicine: Result - Labs CBC & Chem 7: 10/16/17 05:35 10/16/17 05:35 - Impressions Impressions Echocardiogram 10/16/17 23:34 Impressions: LVEF 55%. Normal LV chamber size, wall thickness and function. Mild left ventricular diastolic dysfunction. Normal right ventricular structure and function. No evidence of pulmonary hypertension. No significant valvular dysfunction. Left Ventricular Wall Motion: Rest Echo Findings All wall segments showed normal motion. Findings: Study Quality * Technically adequate exam. ECG Findings * Normal sinus rhythm. Left Ventricle * LVEF 55%. * Normal LV chamber size, wall thickness and function. * Mild left ventricular diastolic dysfunction. Right Ventricle * Normal right ventricular structure and function. Left Atrium * Normal left atrial size. Right Atrium * Normal right atrial size. Interatrial Septum * Interatrial septum not well evaluated. Aortic Valve * Trileaflet aortic valve. * No aortic regurgitation. * No aortic stenosis. Mitral Valve * Normal mitral valve structure and function. * No mitral regurgitation. * No mitral stenosis. Tricuspid Valve * Normal tricuspid valve structure and function. * Trace tricuspid regurgitation. * No evidence of pulmonary hypertension. Pulmonic Valve * Normal pulmonic valve structure and function. * No pulmonic regurgitation. Aorta * Normally sized aortic root. Pericardium * There is a trivial pericardial effusion present. IVC * Grossly normal IVC dimensions and inspiratory collapse. Pulmonary Artery * Normal visualized portions of the main pulmonary artery. Consult Discharge Plan - Plan Referrals: Jean Joseph MD [Primary Care Provider] - <Dima Feldman H - Last Filed: 10/17/17 15:17> Date of Encounter: 10/17/17 - Constitutional Vitals: Temp Pulse Resp BP Pulse Ox 98.2 F 86 16 137/72 93 10/17/17 07:57 10/17/17 07:57 10/17/17 07:57 10/17/17 07:57 10/17/17 09:07 Internal Medicine: Result - Labs CBC & Chem 7: 10/16/17 05:35 10/16/17 05:35 - Attending Attestation not a surgical candidate according to CT surgery/Dr Grey Sternal fracture likely the source of the patient's CP Stress test in the morning per cardiology I examined this patient and my medical decision-making was reviewed with the Resident Physician. I agree with the documented findings, disposition and treatment plan as described except to the extent set forth below.
[2017-10-17] MEDS: *HR* LORazepam 1 MG TABLET PO PRN (22:51)
[2017-10-18] MEDS: Insulin DETEMIR 100 UNIT/ML X5UNITS SQ SCH (00:28)
[2017-10-18] MEDS: Insulin LISPRO 300 UNITS/3 ML VIAL SQ SCH ×4 (00:28→16:11)
[2017-10-18] MEDS: levETIRAcetam 250 MG TABLET PO SCH ×2 (05:41→18:40)
[2017-10-18] MEDS: Levothyroxine 25 MCG TABLET PO SCH (05:41)
[2017-10-18] MEDS ORDERED: Regadenoson 0.4 MG/5 ML SYRINGE IVP ONE (06:58)
[2017-10-18 07:00] LABS: Basophils # 0.1 K/mcL (0.0-0.2); Basophils % 0.8 %; Hematocrit 37.2 % (35.3-44.9); Hemoglobin 11.5 g/dL (11.5-15.4); Immature Granulocytes % 0.3 % (0-4); Lymphocytes # 1.1 K/mcL (0.6-4.6); Lymphocytes % 17.8 %; Mean Corpuscular HGB Conc 30.9 g/dL (31.6-35.5); Mean Corpuscular Hemoglobin 26.7 pg (28.0-33.3); Mean Corpuscular Volume 86.3 fL (83.0-100.0); Mean Platelet Volume 10.8 fL (9.4-12.4); Monocytes # 0.4 K/mcL (0.0-1.3); Monocytes % 6.5 %; Neutrophils # 4.7 K/mcL (1.6-8.9); Platelet Count 272 K/mcL (140-400); Red Blood Count 4.31 M/mcL (3.82-4.97); Red Cell Distribution Width 16.9 % (11.5-14.5); Segmented Neutrophils % 74.6 %
[2017-10-18 07:21] LABS: Alanine Aminotransferase 12 Units/L (0-55); Albumin/Globulin Ratio 0.8 (1.1-2.2); Alkaline Phosphatase 103 Units/L (38-126); Aspartate Amino Transferase 20 Units/L (5-34); BUN/Creatinine Ratio 21 (6-26); Bilirubin,Total 0.2 mg/dL (0.2-1.2); Blood Urea Nitrogen 15 mg/dL (7-20); Calcium 9.8 mg/dL (8.6-10.8); Carbon Dioxide 26 mEq/L (19-29); Chloride 103 mEq/L (98-109); Globulin 3.6 g/dL (2.4-3.5); Glucose 170 mg/dL (70-99); Osmolality,Calculated 293 (280-300); Potassium 3.7 mEq/L (3.5-4.5); Total Protein 6.6 g/dL (6.0-8.3); eGFR For African Americans > 60 (> 60); eGFR For Non-African Americans > 60 (> 60)
[2017-10-18 07:25] LABS: Sodium 139 mEq/L (136-145)
--- NOTE | 2017-10-18 11:41 | Cardiology Progress Note ---
Date of Encounter: 10/18/17 Time of Encounter: 09:45 Assessment and Plan (1) Chest pain Current Visit: Yes Status: Acute Traumatic mechanism 3 weeks ago, chest compressions as per HPI. CTA finding of mass-effect on R atrium due to displaced sternal fracture-- without evidence of JVD, portal hypertension, LE edema. ECG: shows poor R wave progression, LVH Trops neg x2 Echocardiogram performed: read as LVEF 55%, nml LV size, thickness, function, nml R atrium size, mild diastolic dysfunction. Plan: moderate-high surgical risk, family most interested in symptomatic control , if that can be done without surgery and the risks it involves, that the patient and family prefer conservative therapy. Daughter (medical power of district attorney) and patient agreeable to pharmacologic stress testing. Discussed the concept/risks/benefits of angiogram/catheterization if ischemia is demonstrated with daughter--she notes that the DNR-CCA-DNI code was set after the fall that lead to CPR and that she is open to the idea of changing the code to FULL CODE temporarily during a cath or surgery with full knowledge that patient has the risk of needing all forms of resuscitative effort in the event of pt coding. She states that if there is ischemia uncovered via stress test that can be intervened upon with cath/stenting, acknowledgement of risk of pt coding//intubation/resuscitation including CPR are worth consenting for with a temporary change in code status for duration of procedure. Plan 10/18: Lexiscan today. If ischemia eval wnl, patient and family may consider revisiting concept of ortho workup/surgery with Dr. Serna, they are aware of cardiology and primary team assessment of mod-high risk. Qualifiers: Chest pain type: unspecified Qualified Code(s): R07.9 - Chest pain, unspecified (2) Sternal fracture Current Visit: Yes Status: Acute Echo as above, goals of care as above. Patient METs <4 Hemodynamically stable, not anemic. Hx HTN, HLD, no known cardiomyopathy, echo results as above. Pt responding well to pain management. Anni, daughter, today indicates she is generally stoic (she has been trying to have her be as accurate as possible regarding pain symptoms) Pt was being evaluated by Dr. Francisco De La Torre with [facility] in July for possible T6 compression fracture with possible cementing/ kyphoplasty, MR thoracic spine was ordered during their appt 09/08, had not been completed due to patient's recent long-term/fall/cpr event. Family feels they may return to that in the future acknowledging that her candidacy for surgery/procedures in general is questionable. Lexiscan plan as above. Qualifiers: Encounter type: initial encounter Sternal location: body of sternum Fracture type: closed Qualified Code(s): S22.22XA - Fracture of body of sternum, initial encounter for closed fracture (3) Hypertension Current Visit: No Status: Chronic Chronic condition. Continue atenolol. Pt normotensive. Qualifiers: Hypertension type: essential hypertension Qualified Code(s): I10 - Essential (primary) hypertension (4) Hyperlipidemia Current Visit: No Status: Chronic Chronic condition. Continue Simvastatin 5mg. Has not tried other statins/doses. No hx myopathy. Qualifiers: Hyperlipidemia type: unspecified Qualified Code(s): E78.5 - Hyperlipidemia , unspecified Discussion w patient/family: The assessment and plan as outlined above was discussed with the patient and/or family members who expressed understanding and agreement. All questions were answered. Thank you for involving us in the care of your patient. Please call with any questions. Subjective Principal diagnosis: Chest pain, displaced sternal fracture Interval history: Pt chest pain controlled with medication, hurts with torso rotation and arm lift. Will need to lift arms temporarily for lexiscan. Pt says demonstrates ability to do so and says she can tolerate it for the time being. No new complaints, lying comfortably in bed on her side, daughter at bedside. Objective Vital Signs, Last 4 Hours Temp Pulse Resp BP Pulse Ox 10/18/17 10:19 98.7 F 83 14 151/71 95 General: Conversant, No Apparent Distress HEENT: Atraumatic Neck: No JVD Cardiac: Reg Rate and Rhythm, Normal S1 and S2 Lungs: No Wheeze, Rales, Rhonchi Neuro: No focal deficits noted Extremities: No Clubbing, No Cyanosis, No Edema Results 10/18/17 06:13 10/18/17 06:13 Lab Results 10/18/17 10/18/17 06:13 06:13 WBC 6.3 Hgb 11.5 Hct 37.2 Plt Count 272 Sodium 139 Potassium 3.7 Chloride 103 Carbon Dioxide 26 BUN 15 Creatinine 0.72 Glucose 170 H Calcium 9.8 Total Bilirubin 0.2 AST 20 ALT 12 Alkaline Phosphatase 103 Consult Discharge Plan - Plan Referrals: Jean Joseph MD [Primary Care Provider] -
[2017-10-18] MEDS: Magnesium Oxide 400 MG TABLET PO SCH (13:39)
[2017-10-18] MEDS: Aspirin 81 MG TAB.CHEW PO SCH (13:39)
[2017-10-18] MEDS: traMADol 50 MG TABLET PO PRN (13:42)
[2017-10-18] MEDS: Lisinopril 20 MG TABLET PO SCH (13:43)
[2017-10-18] MEDS: rOPINIRole 0.25 MG TABLET PO SCH ×2 (13:44→16:01)
--- NOTE | 2017-10-18 14:28 | Internal Med Progress Note ---
Date of Encounter: 10/18/17 Time of Encounter: 14:26 - Assessment and plan (1) Chest pain Current Visit: No Status: Resolved Assessment and plan: Likely related to sternal fracture status post CPR. CT scan showed compression deformity of T7 with T6 displaced sternal fracture. Etiology likely musculoskeletal in origin and non cardiac chest pain. Echo showed LVEF 55%, normal LV chamber size, wall thickness, and funciton, mild LV diastolic dysfunction, normal RV structure and function, no evidence of pulmonary HTN, no significant valvular dysfunction. On CT there is some mass effect of the cardiac structures. patient evaluated by cardiology: moderate to high surgical risk. Plan: s/p cardiac stress test today, potential LHC if ischmia is present. report pending continue with pain control. Qualifiers: Chest pain type: other chest pain Qualified Code(s): R07.89 - Other chest pain; R07.8 - Other chest pain (2) Sternal fracture Current Visit: Yes Status: Acute Assessment and plan: as above Qualifiers: Encounter type: initial encounter Sternal location: body of sternum Fracture type: closed Qualified Code(s): S22.22XA - Fracture of body of sternum, initial encounter for closed fracture (3) Hyperlipidemia Current Visit: No Status: Chronic Assessment and plan: Stable. Continue home medications. Qualifiers: Hyperlipidemia type: unspecified Qualified Code(s): E78.5 - Hyperlipidemia , unspecified (4) Diabetes Current Visit: No Status: Chronic Assessment and plan: Blood sugars under good control. Continue low dose sliding scale insulin. 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 Seen on previous CT scans. Patient been seen by pulmonology in the past and recommend supportive measures. Plan: continue with supportive oxygen supplementation and PRN bronchodilators. (6) Compression fx, thoracic spine Current Visit: No Status: Acute Assessment and plan: CT howed compression defority of T7, with displacement of T6 sternal fracture. Qualifiers: Encounter type: initial encounter Fracture type: closed Qualified Code(s) : S22.000A - Wedge compression fracture of unspecified thoracic vertebra, initial encounter for closed fracture (7) Seizure disorder Current Visit: Yes Status: Acute Assessment and plan: Unclear if true seizure disorder. She did have a syncopal episode which led to CPR being performed and there is concern that this was a seizure. Patient was recently diagnosed about a month ago with PRES due to hypertension, these symptoms appeared to resolve. Plan: Continue Keppra for now and continue to monitor. (8) Hypothyroid Current Visit: No Status: Chronic Assessment and plan: continue home synthroid Qualifiers: Hypothyroidism type: unspecified Qualified Code(s): E03.9 - Hypothyroidism , unspecified (9) DVT prophylaxis Current Visit: No Status: Acute Assessment and plan: heparin SQ - Subjective Interval history: 86F evaluated at bedside. patient admits to nausea without vomiting. denies diarrhea, fever, chills. admits to chest pain. - Constitutional Vitals: Temp Pulse Resp BP Pulse Ox 98.7 F 83 14 151/71 95 10/18/17 10:19 10/18/17 10:19 10/18/17 10:19 10/18/17 10:19 10/18/17 10:19 General appearance: Present: mild distress, A&O X 3, pleasant, underweight Exam: frail - Head Head exam: Present: atraumatic, normocephalic - Neck Neck exam general surgery: Present: supple, trachea midline - Respiratory Respiratory exam: Present: CTAB - Cardiovascular Cardiovascular exam: Present: RRR, +S1, +S2 - GI/Abdominal GI/Abdominal exam: Present: normal bowel sounds, soft. Absent: distended, tenderness - Extremities Exam Extremities exam: Absent: cyanotic, pedal edema - Neurological Exam Neurological exam: Present: alert, oriented X3, no focal deficits Internal Medicine: Result - Labs CBC & Chem 7: 10/18/17 06:13 10/18/17 06:13 Labs: Short CBC 10/18/17 Range/Units 06:13 WBC 6.3 (4.3-11.1) K/mcL Hgb 11.5 (11.5-15.4) g/dL Hct 37.2 (35.3-44.9) % Plt Count 272 (140-400) K/mcL Neutrophils # 4.7 (1.6-8.9) K/mcL BMP 10/18/17 06:13 Sodium 139 Potassium 3.7 Chloride 103 Carbon Dioxide 26 BUN 15 Creatinine 0.72 Glucose 170 H Calcium 9.8 Liver Function 10/18/17 Range/Units 06:13 Total Bilirubin 0.2 (0.2-1.2) mg/dL AST 20 (5-34) Units/L ALT 12 (0-55) Units/L Alkaline Phosphatase 103 (38-126) Units/L Albumin 3.0 L (3.5-5.0) g/dL Consult Discharge Plan - Plan Referrals: Jean Joseph MD [Primary Care Provider] -
--- NOTE | 2017-10-18 15:01 | Event Note ---
Date of Encounter: 10/18/17 Time of Encounter: 15:00 - Cardiology Event Note Stress with perfusion imaging negative for ischemia or infarct. Gated EF 70%. Cardiology will sign off and will follow in outpatient setting. Follow up set.
[2017-10-18] MEDS ORDERED: Ketorolac 30 MG/ML VIAL IVP PRN (15:04)
[2017-10-18 15:19] VITALS: BP 136/74
--- NOTE | 2017-10-18 17:24 | Discharge Summary ---
<Patrice Long - Last Filed: 10/18/17 17:04> Date of Encounter: 10/18/17 Time of Encounter: 17:04 - Discharge Diagnosis (1) Sternal fracture Priority: Primary Status: Acute Qualifiers: Encounter type: initial encounter Sternal location: body of sternum Fracture type: closed Qualified Code(s): S22.22XA - Fracture of body of sternum, initial encounter for closed fracture (2) Hyperlipidemia Priority: Secondary Status: Chronic Qualifiers: Hyperlipidemia type: unspecified Qualified Code(s): E78.5 - Hyperlipidemia , unspecified (3) Diabetes Priority: Secondary Status: Chronic Qualifiers: Diabetes mellitus type: type 2 Diabetes mellitus complication status: with unspecified complications Diabetes mellitus senior living insulin use: without senior living use Qualified Code(s): E11.8 - Type 2 diabetes mellitus with unspecified complications (4) Pulmonary fibrosis Priority: Secondary Status: Chronic (5) Compression fx, thoracic spine Priority: Secondary Status: Acute Qualifiers: Encounter type: initial encounter Fracture type: closed Qualified Code(s) : S22.000A - Wedge compression fracture of unspecified thoracic vertebra, initial encounter for closed fracture (6) Seizure disorder Priority: Secondary Status: Acute (7) Hypothyroid Priority: Secondary Status: Chronic Qualifiers: Hypothyroidism type: unspecified Qualified Code(s): E03.9 - Hypothyroidism , unspecified (8) DVT prophylaxis Priority: Secondary Status: Acute - Discharge Medications Home Medications: Aspirin 81 mg PO DAILY 05/13/16 [History] Atenolol [Tenormin] 50 mg PO DAILY 05/13/16 [History] Cholecalciferol (D-3) [Vitamin D] 1,000 unit PO DAILY 05/13/16 [History] Levothyroxine [Synthroid] 25 mcg PO 0630 05/13/16 [History] Rosuvastatin Calcium [Crestor] 5 mg PO QAM 05/13/16 [History] metFORMIN [Glucophage] 500 mg PO BIDWM 05/13/16 [History] Acetaminophen/Butalbital/Caffe [Fioricet] 1 tab PO Q6H PRN 07/22/16 [History] Ibuprofen [Motrin] 200 mg PO TID PRN #0 07/23/16 [Rx] Glimepiride [Amaryl] 1 mg PO DAILY 08/07/17 [History] Ferrous Sulfate 325 mg PO BIDWM tablet 08/09/17 [Rx] Calcitonin-[place], Synthetic [Miacalcin] 1 spr NS DAILY 09/16/17 [History] Docusate [Colace] 100 mg PO DAILY 09/16/17 [History] Ropinirole HCl [Requip] 0.25 mg PO TID 09/16/17 [History] Tramadol HCl [Ultram] 100 mg PO BID PRN 09/16/17 [History] Benzonatate [Tessalon] 100 mg PO TID PRN 10/16/17 [History] Cyanocobalamin (B-12) [Vitamin B12] 1,000 mcg PO DAILY 10/16/17 [History] Furosemide [Lasix] 20 mg PO DAILY 10/16/17 [History] LORazepam [Ativan] 0.5 mg PO TID 10/16/17 [History] Lisinopril [Zestril] 20 mg PO DAILY 10/16/17 [History] Melatonin 1 mg PO HS 10/16/17 [History] Thiamine (B-1) [Vitamin B-1] 100 mg PO DAILY 10/16/17 [History] levETIRAcetam [Keppra] 250 mg PO BID 10/16/17 [History] NIFEdipine [Nifedipine ER] 60 mg PO DAILY 10/18/17 [History] Allergies/Adverse Reactions: 3 Allergy/AdvReac Type Severity Reaction Status Date / Time codeine Allergy Hallucinati Verified 10/15/17 20:32 [From Tylenol-Codeine #3] ng gabapentin [From Neurontin] Allergy See Verified 10/15/17 20:32 Comments hydrocodone [From Vicodin] Allergy Dizziness Verified 10/15/17 20:32 levomefolate calcium Allergy Dizziness Verified 10/15/17 20:32 [From Metanx] mecobalamin [From Metanx] Allergy Dizziness Verified 10/15/17 20:32 Penicillins [PCN] Allergy Hives Verified 10/15/17 20:32 pregabalin [From Lyrica] Allergy Hives Verified 10/15/17 20:32 propoxyphene Allergy Hallucinati Verified 10/15/17 20:32 [From Darvocet-N] ng pyridoxal phosphate Allergy Dizziness Verified 10/15/17 20:32 [From Metanx] Procedures/tests Complete & Pending: Procedures Performed prior 72 hours Category Date Time Status ECG 12 lead ECG [ECG] Routine Y 10/16/17 03:28 Completed Date of admission: 10/17/17 16:12 Primary care physician: Jean Joseph MD Consults: 10/18/17 15:32 Consult to Occupational Therapy [CONS] Routine Comment: Evaluate, develop and implement POC Reason for Consult: debilitated. discharge planning. Consult to Physical Therapy [CONS] Routine Comment: Evaluate, develop and implement POC Reason for Consult: debilitated. discharge planning. Discharging clinician: Patrice Long Anticipated date of discharge: 10/18/17 - Patient Status Disposition: Transfer [facility] Condition: Fair Functional capacity at discharge: wheelchair bound Overall status at discharge: patient is not back to baseline - Discharge Instructions Follow Up With: Jean Joseph MD [Primary Care Provider] - Additional Instructions: transfer to [facility] for second opinion regarding sternal fracture. - Diet and Activity Activity: increase activity as tolerated Diet: diabetic diet, low fat, low cholesterol Hospital course: Ms. Seals is a 86 year old female with PMHx of HTN, DM, HLD, CAD, peripheral artery disease, hx of seizures, hypothyroidism, TIA. Patient presented to [facility] on 10/15/17 with chief complaint of chest pain that was midsternal, severe, sharp, worse with breathing and coughing. At the time, patient was residing in a [facility] for rehab and about one month prior she had CPR at the fci when she was found unconscious on the floor. since then, she had chest pain. EKG showed poor R wave progression, LVH. Troponins x3 were negative. Chest CTA showed no evidence of pulmonary embolism. There was moderate compression deformity of T7 as well as increased T6 compression fracture. There was also a displaced sternal fracture which has mass effect upon the mediastinum , mostly right atrium. CTA also showed pulmonary fibrosis. patient had echocardiogram performed on 10/16/17 that showed LVEF 55%, normal LV chamber size , wall thickness, and function, mild LV diastolic dysfunction, normal RV structure and function, no evidence of pulmonary HTN, no significant valvular dysfunction. It was determined that the cause of her chest pain is likely secondary to the sternal fracture with mass effect on medastinum and right atrium. Cardiology was consulted. SHe was determined to be moderate to high risk for surgery. She had pharmacological stress testing performed on 10/18/17 which was negative for ishchemia or infarct, gated EF 70%. Cardiothoracic surgeon Dr. Grey was informally consulted on the case, and he stated that the patient was not a surgical candidate. After the stress test, cardiology signed off of this case because there was nothing further that they could offer. Patient's daughter (also POA) requested transfer to [facility] for a second opinion regarding management of patient's sternal fracture. Patient had no acute events during her hospital stay. Patient was accepted at [facility] for transfer. SHe will be discharged and transferred to [facility] in stable condition. - Time Spent with Patient Total time spent providing and/or coordinating discharge services: Less than 30 minutes - Constitutional Vitals: Temp Pulse Resp BP Pulse Ox 98.2 F 92 14 136/74 95 10/18/17 15:18 10/18/17 15:18 10/18/17 15:18 10/18/17 15:18 10/18/17 15:18 General appearance: Present: mild distress, A&O X 3, pleasant, underweight, answers questions appropriately Exam: very frail - Head Head exam: Present: atraumatic, normocephalic - Neck Neck exam general surgery: Present: supple, trachea midline - Respiratory Respiratory exam: Present: CTAB - Cardiovascular Cardiovascular exam: Present: RRR, +S1, +S2 Additional comments: musculoskeletal chest pain present. - GI/Abdominal GI/Abdominal exam: Present: normal bowel sounds, soft. Absent: distended, tenderness - Extremities Exam Extremities exam: Absent: cyanotic, pedal edema - Neurological Exam Neurological exam: Present: alert, oriented X3 - Psychiatric Psychiatric exam: Present: normal affect, normal mood <Dima Feldman - Last Filed: 10/18/17 17:57> Date of Encounter: 10/18/17 Procedures/tests Complete & Pending: Procedures Performed prior 72 hours Category Date Time Status ECG 12 lead ECG [ECG] Routine Y 10/16/17 03:28 Completed Date of admission: 10/17/17 16:12 Primary care physician: Jean Joseph MD Consults: 10/18/17 15:32 Consult to Occupational Therapy [CONS] Routine Comment: Evaluate, develop and implement POC Reason for Consult: debilitated. discharge planning. Consult to Physical Therapy [CONS] Routine Comment: Evaluate, develop and implement POC Reason for Consult: debilitated. discharge planning. Hospital course: Ms. Seals is a 86 year old female - Time Spent with Patient Total time spent providing and/or coordinating discharge services: - Constitutional Vitals: Temp Pulse Resp BP Pulse Ox 98.2 F 92 14 136/74 95 10/18/17 15:18 10/18/17 15:18 10/18/17 15:18 10/18/17 15:18 10/18/17 15:18 - Attending Attestation Correction: time spent 40 min Daughter in agreement to asked for a second opinion for Sternal fracture repair as the source of the patient's pain. I examined this patient and my medical decision-making was reviewed with the Resident Physician. I agree with the documented findings, disposition and treatment plan as described except to the extent set forth below.
[2017-10-18] MEDS ORDERED: *HR* Heparin 5,000 UNIT/ML VIAL SQ SCH (18:00)
[2017-10-18] MEDS: *HR* LORazepam 1 MG TABLET PO PRN (18:40)
--- NOTE | 2017-10-20 11:43 | Electrocardiograph Report ---
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
== END 2017-10-18 19:23 | disposition other institution (70) | DRG 183 ==
LOC: EMEROO 20:14 → 3ANU 20:14 → SUATTDRO 23:12 → 3ANU 10-16 00:20
PROVIDERS: ADMIT Family Medicine; ATTEND Internal Medicine

== ENCOUNTER 2017-11-09 13:49 | Inpatient (IN) ==
[2017-11-09] MEDS ORDERED: *HR* HYDROmorphone (PF) 1 MG/ML SYRINGE IVP ONE (16:49)
--- NOTE | 2017-11-09 17:08 | Internal Med History&Physical ---
<David Chowdhury - Last Filed: 11/09/17 18:14> Date of Encounter: 11/09/17 Time of Encounter: 17:05 Assessment and Plan (1) Closed comminuted intertrochanteric fracture of right femur Current visit: Yes Status: Acute CT showing closed comminuted right intertrochanteric femur fracture Received Dilaudid at [place] with moderate relief No anticoagulation at this time CBC, Coags and BMP WNL Plan: Strict bed rest Pain control Garcia Diabetic diet tonight NPO at midnight Orthopedic surgery on board - Plan for right IM nail with OR add-on tomorrow Rechecking morning labs Qualifiers: Encounter type: initial encounter Qualified Code(s): S72.141A - Displaced intertrochanteric fracture of right femur, initial encounter for closed fracture (2) T2DM (type 2 diabetes mellitus) Current visit: Yes Status: Acute Takes Metformin and Glimepiride at home Coverage with LDSS for inpatient stay Qualifiers: Diabetes mellitus complication status: with unspecified complications Diabetes mellitus chcf insulin use: without chcf use Qualified Code( s): E11.8 - Type 2 diabetes mellitus with unspecified complications (3) Seizure disorder Current visit: No Status: Acute Continue home medications - Keppra 250mg BID, ativan LILIAN (4) Hyperlipidemia Current visit: No Status: Chronic Restarting statin therapy - Rosuvastatin 5mg Qualifiers: Hyperlipidemia type: unspecified Qualified Code(s): E78.5 - Hyperlipidemia , unspecified (5) Hypertension Current visit: No Status: Chronic Slightly elevated after transfer Restarting home medications and will monitor - Zestril 20mg qd, atenolol 50 qd, Nifidipine 60mg qd. Holding Lasix while she is NPO Increase possible due to pain and monitor for improvement Qualifiers: Hypertension type: essential hypertension Qualified Code(s): I10 - Essential (primary) hypertension (6) Hypothyroid Current visit: No Status: Chronic Continue home dose of synthroid 25 po Qualifiers: Hypothyroidism type: unspecified Qualified Code(s): E03.9 - Hypothyroidism , unspecified (7) Pulmonary fibrosis Current visit: No Status: Chronic CXR done at [place] shows possible pleural thickening in left lower lobe. Mild atelectasis with cardiomegaly and congestion. Relatively unchanged from previous (8) DVT prophylaxis Current visit: No Status: Acute EPCDs for now Internal Medicine - H&P: HPI Chief complaint: leg pain after fall Admitted From: Long-term Nursing Facility Plans for Post Hospital Care: Transfer [employer] Care History of present illness: Ms. Seals is a very pleasant 87 year old female with a past medical history of HTN, HLD, hypothyroidism, seizure disorder and T2DM who presents to the [facility] as a direct admission from [facility] ER. Patient was found to have fallen earlier today while she was in the bathroom unattended. She states that she fell backwards and landed on her right side. She started experiencing intense pain located at her anterior right hip and was unable to bear weight. The pain was sharp in nature and 10/10. There was immediate bruising on her right ankle with edema about her anterior right hip. EMS transferred her to [facility] ED and on arrival, vitals signs stable, CBC, BMP and urine neg. CXR neg. CT shows a comminuted intertrochanteric hip fracture. Pain control given and she was subsequently transferred to [facility] for orthopedic management. On evaluation, she denies any previous trauma to her hips. No anticoagulation at this time. She was discharged from [facility] on after undergoing a sternal fracture along with T6 and 7 compression fractures. She was discharged and had kyphoplasty at [place] of her T6 and T7. Patient was then sent to [facility] for rehabilitation. No tobacco history or EtOH. Orthopedic surgery is consulted. We will admit patient to [facility] for further workup and management. Past Med Surg Social Fam HX - Past Medical History Medical history: arthritis, coronary artery disease, diabetes, hyperlipidemia, hypertension, peripheral artery disease, seizures, thyroid disease, TIA Psychiatric history: anxiety, depression - Past Surgical History Surgical History: appendectomy, other - Social History Smoking Status: Never smoker Smokeless Tobacco Status: No Alcohol use: none Drug use: none - Family History Father Living Status: Hx Family Cardiac Disorders: Yes Hx Family Cancer: Yes (Stomach) Mother Living Status: Hx Family Cardiac Disorders: Yes Brother Living Status: Still Living Hx Family Endocrine Disorder: Yes Sister Living Status: Hx Family Cancer: Yes (liver) Internal Medicine - H&P: Meds Aspirin 81 mg PO DAILY 05/13/16 [History] Atenolol [Tenormin] 50 mg PO DAILY 05/13/16 [History] Cholecalciferol (D-3) [Vitamin D] 1,000 unit PO DAILY 05/13/16 [History] Levothyroxine [Synthroid] 25 mcg PO 0630 05/13/16 [History] Rosuvastatin Calcium [Crestor] 5 mg PO QAM 05/13/16 [History] metFORMIN [Glucophage] 500 mg PO BIDWM 05/13/16 [History] Acetaminophen/Butalbital/Caffe [Fioricet] 1 tab PO Q4H PRN 07/22/16 [History] Ibuprofen [Motrin] 200 mg PO TID PRN #0 07/23/16 [Rx] Glimepiride [Amaryl] 1 mg PO DAILY 08/07/17 [History] Ferrous Sulfate 325 mg PO BIDWM tablet 08/09/17 [Rx] Calcitonin-[place], Synthetic [Miacalcin] 1 spr NS DAILY 09/16/17 [History] Docusate [Colace] 100 mg PO BID 09/16/17 [History] Ropinirole HCl [Requip] 0.25 mg PO TID 09/16/17 [History] Tramadol HCl [Ultram] 50 mg PO Q6H PRN 09/16/17 [History] Benzonatate [Tessalon] 100 mg PO TID PRN 10/16/17 [History] Cyanocobalamin (B-12) [Vitamin B12] 1,000 mcg PO DAILY 10/16/17 [History] LORazepam [Ativan] 0.5 mg PO TID 10/16/17 [History] Lisinopril [Zestril] 20 mg PO DAILY 10/16/17 [History] Melatonin 1 mg PO HS 10/16/17 [History] Thiamine (B-1) [Vitamin B-1] 100 mg PO DAILY 10/16/17 [History] levETIRAcetam [Keppra] 250 mg PO BID 10/16/17 [History] NIFEdipine [Nifedipine ER] 60 mg PO DAILY 10/18/17 [History] Calcium Carbonate [Tums] 500 mg PO Q6H PRN 11/09/17 [History] Furosemide [Lasix] 20 mg PO DAILY 11/09/17 [History] Mirtazapine [Remeron] 7.5 mg PO HS 11/09/17 [History] Polyethylene Glycol 3350 [MiraLAX] 17 gm PO DAILY 11/09/17 [History] 3 Allergy/AdvReac Type Severity Reaction Status Date / Time codeine Allergy Hallucinati Verified 10/15/17 20:32 [From Tylenol-Codeine #3] ng gabapentin [From Neurontin] Allergy See Verified 10/15/17 20:32 Comments hydrocodone [From Vicodin] Allergy Dizziness Verified 10/15/17 20:32 levomefolate calcium Allergy Dizziness Verified 10/15/17 20:32 [From Metanx] mecobalamin [From Metanx] Allergy Dizziness Verified 10/15/17 20:32 Penicillins [PCN] Allergy Hives Verified 10/15/17 20:32 pregabalin [From Lyrica] Allergy Hives Verified 10/15/17 20:32 propoxyphene Allergy Hallucinati Verified 10/15/17 20:32 [From Darvocet-N] ng pyridoxal phosphate Allergy Dizziness Verified 10/15/17 20:32 [From Metanx] All Systems PM: A 10-system review of systems was performed and is negative for pertinent findings except as documented above in the HPI. - Constitutional Constitutional: fatigue, no fever(s) - EENT Eyes: no change in vision - Cardiovascular Cardiovascular ROS IM: no chest pain, no lightheadedness, no palpitations - Respiratory Respiratory: no cough - Gastrointestinal Gastrointestinal: no abdominal pain, no constipation, no diarrhea - Genitourinary Genitourinary: no dysuria - Musculoskeletal Musculoskeletal ROS IM: as per HPI - Constitutional Vitals: Temp Pulse Resp BP Pulse Ox 98.6 F 95 18 173/82 99 11/09/17 16:08 11/09/17 16:08 11/09/17 16:08 11/09/17 16:08 11/09/17 16:08 General appearance: Present: cooperative (scard about sleeping alone at night), A&O X 3, no acute distress, answers questions appropriately - Head Head exam: Present: atraumatic, normocephalic - Eye Eye exam: Present: EOMI, normal appearance - ENT ENT exam: Present: mucous membranes moist - Neck Neck exam general surgery: Present: supple, trachea midline - Respiratory Respiratory exam: Present: CTAB, wheezes (scattered). Absent: respiratory distress - Cardiovascular Cardiovascular exam: Present: RRR, +S1, +S2 - GI/Abdominal GI/Abdominal exam: Present: normal bowel sounds, soft. Absent: tenderness - Extremities Exam Extremities exam: Present: tenderness (right anterior hip, edema present, TTP, no ER or IR, no ecchymosis). Absent: joint swelling - Neurological Exam Neurological exam: Present: alert, oriented X3 - Psychiatric Psychiatric exam: Present: anxious (concerned about sleeping alone and is very scared) - Skin Skin exam: Present: dry, warm <Roebrto Brand - Last Filed: 11/09/17 19:10> Date of Encounter: 11/09/17 Internal Medicine - H&P: HPI History of present illness: Ms. Seals is a 87 year old female All Systems PM: A 10-system review of systems was performed and is negative for pertinent findings except as documented above in the HPI. - Constitutional Vitals: Temp Pulse Resp BP Pulse Ox 100 F H 97 19 154/69 97 11/09/17 18:50 11/09/17 18:50 11/09/17 18:50 11/09/17 18:50 11/09/17 18:50 - Attending Attestation I conducted a face to face diagnostic evaluation of this patient and my medical decision-making was reviewed with the Resident Physician, Dr David Chowdhury. I agree with the documented findings, disposition and treatment plan as described except to the extent set forth below: Patient is in moderate distress due to right hip pain. On examination right leg is 1 cm shorter compared to the left and externally rotated. Heart is regular. Lungs are clear. Plan: Pain control with IV hydromorphone. Hold oral antidiabetic medication. Hold Lasix. Nothing by mouth after midnight. I discussed the case with the orthopedic surgeon. Plan is for ORIF tomorrow afternoon. Patient is at high risk for morbidity, mortality and complications due to IV controlled substances. Roberto Brand MD
[2017-11-09] MEDS ORDERED: Naloxone 0.4 MG/ML INJ IVP PRN (17:34)
[2017-11-09] MEDS ORDERED: *HR* LORazepam 0.5 MG TABLET PO PRN (17:51)
[2017-11-09] MEDS ORDERED: Dextrose Gel 15 GM PO PRN ×2 (17:56)
[2017-11-09] MEDS ORDERED: *HR* Dextrose 50 % in Water (Syg) 50 ML SYRINGE IVP PRN (17:56)
[2017-11-09] MEDS ORDERED: D5% in Water 1,000 ML IVC PRN (17:56)
[2017-11-09] MEDS: Ketorolac 30 MG/ML VIAL IVP PRN (18:27)
--- NOTE | 2017-11-09 21:43 | Orthopedic Consult Note ---
Date of Encounter: 11/09/17 Time of Encounter: 17:00 Assessment and Plan (1) Closed comminuted intertrochanteric fracture of right femur Current Visit: Yes Status: Acute I did discuss the diagnosis in detail the patient. She has a displaced right intertrochanteric hip fracture. My recommendation was to proceed with reduction and internal fixation of the right hip in order to reduce and stabilize the fracture to help facilitate nursing care and provide pain control. The risks discussed included but were not limited to stiffness, bleeding, infection, blood clots, damage to neurovascular structures, tendons, ligaments, and bone. Also discussed was the risk of continued symptoms and possible need for further procedures. I did discuss the anesthesia risks including stroke, heart attack, and . I did discuss the reasonable, foreseeable postoperative course with the patient. senior care facility upon discharge. I explained this to the patient sometimes and she did wish to proceed. We will proceed once medically cleared. Qualifiers: Encounter type: initial encounter Qualified Code(s): S72.141A - Displaced intertrochanteric fracture of right femur, initial encounter for closed fracture History of Present Illness HPI: Ms. Seals is a 87 year old female who is admitted to the hospitalist due to a right intertrochanteric hip fracture. She presents today after a fall in the bathroom which led to significant right hip and groin pain. She was seen at the [place] emergency department and transferred here after a CT scan showed the fracture. The patient has had recent thoracic compression fractures with kyphoplasty as well as a sternal fracture. She complains of pain isolated to the right hip and groin region and denies any headaches, neck pain, chest pain, abdominal pain, bilateral partial knee pain, and left lower extremity pain. She denies any numbness or tingling or any other associated signs or symptoms. Pain is significant with any movement of the right lower extremity. No other associated signs or symptoms or modifying factors. Past Med Surg Social Fam HX - Past Medical History Medical history: arthritis, coronary artery disease, diabetes, hyperlipidemia, hypertension, peripheral artery disease, seizures, thyroid disease, TIA Psychiatric history: anxiety, depression - Past Surgical History Surgical History: appendectomy, other - Social History Smoking Status: Never smoker Smokeless Tobacco Status: No Alcohol use: none Drug use: none - Family History Father Living Status: Hx Family Cardiac Disorders: Yes Hx Family Cancer: Yes (Stomach) Mother Living Status: Hx Family Cardiac Disorders: Yes Brother Living Status: Still Living Hx Family Endocrine Disorder: Yes Sister Living Status: Hx Family Cancer: Yes (liver) Medications and Allergies Aspirin 81 mg PO DAILY 05/13/16 [History] Atenolol [Tenormin] 50 mg PO DAILY 05/13/16 [History] Cholecalciferol (D-3) [Vitamin D] 1,000 unit PO DAILY 05/13/16 [History] Levothyroxine [Synthroid] 25 mcg PO 0630 05/13/16 [History] Rosuvastatin Calcium [Crestor] 5 mg PO QAM 05/13/16 [History] metFORMIN [Glucophage] 500 mg PO BIDWM 05/13/16 [History] Acetaminophen/Butalbital/Caffe [Fioricet] 1 tab PO Q4H PRN 07/22/16 [History] Ibuprofen [Motrin] 200 mg PO TID PRN #0 07/23/16 [Rx] Glimepiride [Amaryl] 1 mg PO DAILY 08/07/17 [History] Ferrous Sulfate 325 mg PO BIDWM tablet 08/09/17 [Rx] Calcitonin-[place], Synthetic [Miacalcin] 1 spr NS DAILY 09/16/17 [History] Docusate [Colace] 100 mg PO BID 09/16/17 [History] Ropinirole HCl [Requip] 0.25 mg PO TID 09/16/17 [History] Tramadol HCl [Ultram] 50 mg PO Q6H PRN 09/16/17 [History] Benzonatate [Tessalon] 100 mg PO TID PRN 10/16/17 [History] Cyanocobalamin (B-12) [Vitamin B12] 1,000 mcg PO DAILY 10/16/17 [History] LORazepam [Ativan] 0.5 mg PO TID 10/16/17 [History] Lisinopril [Zestril] 20 mg PO DAILY 10/16/17 [History] Melatonin 1 mg PO HS 10/16/17 [History] Thiamine (B-1) [Vitamin B-1] 100 mg PO DAILY 10/16/17 [History] levETIRAcetam [Keppra] 250 mg PO BID 10/16/17 [History] NIFEdipine [Nifedipine ER] 60 mg PO DAILY 10/18/17 [History] Calcium Carbonate [Tums] 500 mg PO Q6H PRN 11/09/17 [History] Furosemide [Lasix] 20 mg PO DAILY 11/09/17 [History] Mirtazapine [Remeron] 7.5 mg PO HS 11/09/17 [History] Polyethylene Glycol 3350 [MiraLAX] 17 gm PO DAILY 11/09/17 [History] 3 Allergy/AdvReac Type Severity Reaction Status Date / Time codeine Allergy Hallucinati Verified 10/15/17 20:32 [From Tylenol-Codeine #3] ng gabapentin [From Neurontin] Allergy See Verified 10/15/17 20:32 Comments hydrocodone [From Vicodin] Allergy Dizziness Verified 10/15/17 20:32 levomefolate calcium Allergy Dizziness Verified 10/15/17 20:32 [From Metanx] mecobalamin [From Metanx] Allergy Dizziness Verified 10/15/17 20:32 Penicillins [PCN] Allergy Hives Verified 10/15/17 20:32 pregabalin [From Lyrica] Allergy Hives Verified 10/15/17 20:32 propoxyphene Allergy Hallucinati Verified 10/15/17 20:32 [From Darvocet-N] ng pyridoxal phosphate Allergy Dizziness Verified 10/15/17 20:32 [From Metanx] All Systems Reviewed: A 10-system review of systems was performed and is negative for pertinent findings except as documented above in the HPI. Physical Exam - Constitutional Vitals: Temp Pulse Resp BP Pulse Ox 100 F H 97 19 154/69 97 11/09/17 18:50 11/09/17 18:50 11/09/17 18:50 11/09/17 18:50 11/09/17 18:50 Constitutional -Vitals reviewed -The patient is well developed and well nourished. -Mood is pleasant. -The patient is well groomed. Psychiatric -The patient is fully alert and oriented x 3. Respiratory: -Respiratory effort normal Abdomen: -Soft abdomen -Non tender -Non distended: Left upper extremity: -No deformities. The overlying skin is intact. No obvious signs of acute trauma. -No tenderness to palpation throughout. -No significant pain with passive motion of the shoulder, elbow, wrist, and fingers within the limits of the bed. -Able to make an "OK" sign, cross the index and long fingers, and extend the thumb. -Sensation grossly intact to light touch throughout the median, radial, and ulnar distributions. -Radial pulse is present; Fingers have good capillary refill. Right upper extremity: -No deformities. The overlying skin is intact. No obvious signs of acute trauma. -No tenderness to palpation throughout. -No significant pain with passive motion of the shoulder, elbow, wrist, and fingers within the limits of the bed. -Able to make an "OK" sign, cross the index and long fingers, and extend the thumb. -Sensation grossly intact to light touch throughout the median, radial, and ulnar distributions. -Radial pulse is present; Fingers have good capillary refill. Left lower extremity: -No deformities. The overlying skin is intact. No obvious signs of acute trauma. -No tenderness to palpation throughout. -No pain with passive motion of the hip, knee, ankle, and toes within the limits of the bed. -No pain with axial loading of the thigh. -Able to dorsiflex and plantarflex the ankle and toes. -Sensation is grossly intact to light touch throughout the sural, saphenous, superficial peroneal, and deep peroneal distributions. -Toes have good capillary refill. Right lower extremity: -The extremity is shortened and externally rotated. The overlying skin is intact. -There is tenderness in the groin region as well as the proximal lateral thigh. -I did not range the hip due to the known fracture. -No tenderness along the distal thigh, leg, ankle, foot, or toes. -Able to dorsiflex and plantarflex the ankle and toes. -Sensation is grossly intact to light touch throughout the sural, saphenous, superficial peroneal, and deep peroneal distributions. -Toes have good capillary refill. Diagnostic Imaging: I did personally review and interpret the CT scan of the right hip which shows a displaced intertrochanteric hip fracture with diffuse osteopenia. Results - Labs Labs: Abnormal lab results POC Glucose 168 (58-89) H 11/09/17 17:17 All other labs normal. Consult Discharge Plan - Plan Referrals: Jean Joseph MD [Primary Care Provider] -
[2017-11-09] MEDS: *HR* LORazepam 0.5 MG TABLET PO SCH (22:01)
[2017-11-09] MEDS: Melatonin 3 MG TABLET PO SCH (22:01)
[2017-11-09] MEDS: Mirtazapine 15 MG TABLET PO SCH (22:01)
[2017-11-09] MEDS: levETIRAcetam 250 MG TABLET PO SCH (22:01)
[2017-11-09] MEDS: 0.9 % Sodium Chloride 1,000 ML IVC SCH (22:15)
[2017-11-09] MEDS: *HR* HYDROmorphone (PF) 1 MG/ML SYRINGE IVP PRN (23:29)
[2017-11-10] MEDS: *HR* HYDROmorphone (PF) 1 MG/ML SYRINGE IVP PRN ×2 (03:27→13:00)
[2017-11-10 05:11] LABS: Calcium 9.5 mg/dL (8.6-10.3); Potassium 4.3 mEq/L (3.5-5.1)
[2017-11-10 05:51] LABS: INR 1.1; Prothrombin Time 11.6 Seconds (9.4-12.1)
[2017-11-10 05:53] LABS: Activated Partial Thrombo Time 29.1 Seconds (26.0-36.0)
[2017-11-10 06:06] LABS: Hematocrit 35.6 % (35.3-44.9); Hemoglobin 10.8 g/dL (11.5-15.4); Mean Corpuscular HGB Conc 30.3 g/dL (31.6-35.5); Mean Corpuscular Hemoglobin 26.7 pg (28.0-33.3); Mean Corpuscular Volume 88.1 fL (83.0-100.0); Platelet Count 289 K/mcL (140-400); Red Blood Count 4.04 M/mcL (3.82-4.97); Red Cell Distribution Width 14.9 % (11.5-14.5)
[2017-11-10] MEDS: Levothyroxine 25 MCG TABLET PO SCH (06:39)
[2017-11-10] MEDS ORDERED: Insulin LISPRO 300 UNITS/3 ML VIAL SQ SCH (07:30)
[2017-11-10] MEDS: Cyanocobalamin (B-12) 1,000 MCG TABLET PO SCH (07:58)
[2017-11-10] MEDS: Thiamine (B-1) 100 MG TABLET PO SCH (07:58)
[2017-11-10] MEDS: Cholecalciferol (D-3) 1,000 UNIT TABLET PO SCH (07:59)
[2017-11-10] MEDS: Ketorolac 30 MG/ML VIAL IVP PRN (08:47)
--- NOTE | 2017-11-10 08:47 | Internal Med Progress Note ---
<David Chowdhury - Last Filed: 11/10/17 11:11> Date of Encounter: 11/10/17 Time of Encounter: 08:45 - Assessment and plan (1) Closed comminuted intertrochanteric fracture of right femur Current Visit: Yes Status: Acute Assessment and plan: CT showing closed comminuted right intertrochanteric femur fracture No anticoagulation at this time Repeat CBC, Coags and BMP WNL Plan: Strict bed rest Pain control Garcia NPO Orthopedic surgery plan for right IM nail with OR add-on today All questions and concerns were answered Qualifiers: Encounter type: initial encounter Qualified Code(s): S72.141A - Displaced intertrochanteric fracture of right femur, initial encounter for closed fracture (2) T2DM (type 2 diabetes mellitus) Current Visit: Yes Status: Acute Assessment and plan: LDSS for coverage during stay Qualifiers: Diabetes mellitus complication status: with unspecified complications 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 Well controlled at this time Qualifiers: Hypertension type: essential hypertension Qualified Code(s): I10 - Essential (primary) hypertension (6) Hypothyroid Current Visit: No Status: Chronic Assessment and plan: Synthroid 25 PO Qualifiers: Hypothyroidism type: unspecified Qualified Code(s): E03.9 - Hypothyroidism , unspecified (7) Pulmonary fibrosis Current Visit: No Status: Chronic Assessment and plan: CXR done at [place] shows possible pleural thickening in left lower lobe. Mild atelectasis with cardiomegaly and congestion. Relatively unchanged from previous (8) DVT prophylaxis Current Visit: No Status: Acute Assessment and plan: EPCDs - Subjective Interval history: Patient is resting comfortably in bed this morning Mild agitation last night and took her IV out Pain controlled Plan for OR later today - Constitutional Vitals: Temp Pulse Resp BP Pulse Ox 98.2 F 98 16 105/70 97 11/10/17 06:56 11/10/17 06:56 11/10/17 06:56 11/10/17 06:56 11/10/17 06:56 General appearance: Present: cachectic, cooperative (scard about sleeping alone at night), A&O X 3, no acute distress, answers questions appropriately - Head Head exam: Present: atraumatic, normocephalic - Eye Eye exam: Present: EOMI, normal appearance - ENT ENT exam: Present: mucous membranes moist - Neck Neck exam general surgery: Present: supple, trachea midline - Respiratory Respiratory exam: Present: CTAB. Absent: respiratory distress - Cardiovascular Cardiovascular exam: Present: RRR - GI/Abdominal GI/Abdominal exam: Present: normal bowel sounds, soft. Absent: tenderness - Extremities Exam Extremities exam: Present: tenderness (right LE, TTP about right anterior hip, no ecchymosis, skin intact, edema present), warm. Absent: calf tenderness, pedal edema - Neurological Exam Neurological exam: Present: alert, oriented X3 - Psychiatric Psychiatric exam: Present: anxious - Skin Skin exam: Present: dry, intact, warm Internal Medicine: Result - Labs CBC & Chem 7: 11/10/17 04:37 11/10/17 04:37 Labs: Short CBC 11/10/17 Range/Units 04:37 WBC 8.2 (4.3-11.1) K/mcL Hgb 10.8 L D (11.5-15.4) g/dL Hct 35.6 (35.3-44.9) % Plt Count 289 (140-400) K/mcL [facility] 11/10/17 04:37 Sodium 140 Potassium 4.3 Chloride 102 Carbon Dioxide 32 H BUN 19 Creatinine 1.21 H Glucose 172 H Calcium 9.5 - ABG Interpretation ABG results: PT/INR, D-dimer PT 11.6 Seconds (9.4-12.1) 11/10/17 04:37 - VTE Documentation of Mechanical Device: Intermittent pneumatic compression device Consult Discharge Plan - Plan Referrals: Jean Joseph MD [Primary Care Provider] - <Roberto Bradn - Last Filed: 11/10/17 17:58> Date of Encounter: 11/10/17 - Constitutional Vitals: Temp Pulse Resp BP Pulse Ox 98.8 F 75 16 89/56 95 11/10/17 14:50 11/10/17 14:50 11/10/17 14:50 11/10/17 17:37 11/10/17 14:50 Internal Medicine: Result - Labs CBC & Chem 7: 11/10/17 04:37 11/10/17 04:37 Labs: Short CBC 11/10/17 Range/Units 04:37 WBC 8.2 (4.3-11.1) K/mcL Hgb 10.8 L D (11.5-15.4) g/dL Hct 35.6 (35.3-44.9) % Plt Count 289 (140-400) K/mcL BMP 11/10/17 04:37 Sodium 140 Potassium 4.3 Chloride 102 Carbon Dioxide 32 H BUN 19 Creatinine 1.21 H Glucose 172 H Calcium 9.5 - ABG Interpretation ABG results: PT/INR, D-dimer PT 11.6 Seconds (9.4-12.1) 11/10/17 04:37 - Attending Attestation I conducted a face to face diagnostic evaluation of this patient and my medical decision-making was reviewed with the Resident Physician. I agree with the documented findings, disposition and treatment plan as described except to the extent set forth below: Patient is in no acute distress awake alert oriented heart is regular. Lungs are clear. Right proximal thigh soft tissue swelling. Right lower extremity is 2 cm shorter than the left and externally rotated. Plan: ORIF for right hip fracture this afternoon. Patient is at intermediate risk for cardiovascular complications perioperatively. She does not require any further medical optimization or testing. Roberto Brand MD
[2017-11-10] MEDS: levETIRAcetam 250 MG TABLET PO SCH ×2 (08:49→23:21)
[2017-11-10] MEDS: NIFEdipine XL (24 HR) 60 MG TAB.ER.24 PO SCH (08:51)
[2017-11-10] MEDS: *HR* LORazepam 0.5 MG TABLET PO SCH ×3 (08:51→23:21)
[2017-11-10] MEDS: Lisinopril 20 MG TABLET PO SCH (08:51)
[2017-11-10] MEDS: Insulin LISPRO 300 UNITS/3 ML VIAL SQ SCH ×2 (11:46→17:56)
[2017-11-10] MEDS ORDERED: *HR* Propofol 200 MG/20 ML VIAL IVP ONE ×2 (17:46→19:28)
[2017-11-10] MEDS ORDERED: Lidocaine -MPF 2% 2 ML VIAL ONE ×2 (17:47→19:28)
[2017-11-10] MEDS ORDERED: EPHEDrine 50 MG/ML VIAL ONE ×2 (17:48→20:22)
[2017-11-10] MEDS ORDERED: *HR* FentaNYL (PF) 100 MCG/2 ML VIAL ONE ×2 (17:49→19:28)
[2017-11-10] MEDS: 0.9 % Sodium Chloride 1,000 ML IVC SCH (17:55)
--- NOTE | 2017-11-10 19:20 | Anesthesia Evaluation PreOp ---
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: Seizures Other Medical History: Renal (CKD), Diabetes Type II, Thyroid (Hypothyroid) Anesthesia History: No Prior Anesthetic Complications : No Alcohol Use: none Drug use: none Medications and Allergies Aspirin 81 mg PO DAILY 05/13/16 [History] Atenolol [Tenormin] 50 mg PO DAILY 05/13/16 [History] Cholecalciferol (D-3) [Vitamin D] 1,000 unit PO DAILY 05/13/16 [History] Levothyroxine [Synthroid] 25 mcg PO 0630 05/13/16 [History] Rosuvastatin Calcium [Crestor] 5 mg PO QAM 05/13/16 [History] metFORMIN [Glucophage] 500 mg PO BIDWM 05/13/16 [History] Acetaminophen/Butalbital/Caffe [Fioricet] 1 tab PO Q4H PRN 07/22/16 [History] Ibuprofen [Motrin] 200 mg PO TID PRN #0 07/23/16 [Rx] Glimepiride [Amaryl] 1 mg PO DAILY 08/07/17 [History] Ferrous Sulfate 325 mg PO BIDWM tablet 08/09/17 [Rx] Calcitonin-[place], Synthetic [Miacalcin] 1 spr NS DAILY 09/16/17 [History] Docusate [Colace] 100 mg PO BID 09/16/17 [History] Ropinirole HCl [Requip] 0.25 mg PO TID 09/16/17 [History] Tramadol HCl [Ultram] 50 mg PO Q6H PRN 09/16/17 [History] Benzonatate [Tessalon] 100 mg PO TID PRN 10/16/17 [History] Cyanocobalamin (B-12) [Vitamin B12] 1,000 mcg PO DAILY 10/16/17 [History] LORazepam [Ativan] 0.5 mg PO TID 10/16/17 [History] Lisinopril [Zestril] 20 mg PO DAILY 10/16/17 [History] Melatonin 1 mg PO HS 10/16/17 [History] Thiamine (B-1) [Vitamin B-1] 100 mg PO DAILY 10/16/17 [History] levETIRAcetam [Keppra] 250 mg PO BID 10/16/17 [History] NIFEdipine [Nifedipine ER] 60 mg PO DAILY 10/18/17 [History] Calcium Carbonate [Tums] 500 mg PO Q6H PRN 11/09/17 [History] Furosemide [Lasix] 20 mg PO DAILY 11/09/17 [History] Mirtazapine [Remeron] 7.5 mg PO HS 11/09/17 [History] Polyethylene Glycol 3350 [MiraLAX] 17 gm PO DAILY 11/09/17 [History] Acetaminophen/Butalbital/Caffe [Fioricet] 1 tab PO Q4H PRN 11/10/17 [History] Ondansetron ODT [Zofran ODT] 4 mg SL Q6HR PRN 11/10/17 [History] Simethicone [Bicarsim] 80 mg PO QID PRN 11/10/17 [History] 3 Allergy/AdvReac Type Severity Reaction Status Date / Time codeine Allergy Hallucinati Verified 10/15/17 20:32 [From Tylenol-Codeine #3] ng gabapentin [From Neurontin] Allergy See Verified 10/15/17 20:32 Comments hydrocodone [From Vicodin] Allergy Dizziness Verified 10/15/17 20:32 levomefolate calcium Allergy Dizziness Verified 10/15/17 20:32 [From Metanx] mecobalamin [From Metanx] Allergy Dizziness Verified 10/15/17 20:32 Penicillins [PCN] Allergy Hives Verified 10/15/17 20:32 pregabalin [From Lyrica] Allergy Hives Verified 10/15/17 20:32 propoxyphene Allergy Hallucinati Verified 10/15/17 20:32 [From Darvocet-N] ng pyridoxal phosphate Allergy Dizziness Verified 10/15/17 20:32 [From Metanx] - Meds/Allergy Pre-op Review Medications Reviewed: Yes Allergies Reviewed: Yes Beta Blockers on Current Med List: No Anesthesia Results - Labs 11/10/17 04:37 11/10/17 04:37 - Imaging EKG: report reviewed (SR occ PVC) Additional studies: ECHO LVEF 55% Anesthesia Exam O2 Sat O2 Sat by Pulse Oximetry 94 O2 Sat by Pulse Oximetry 95 O2 Sat by Pulse Oximetry 93 O2 Sat by Pulse Oximetry 97 O2 Sat by Pulse Oximetry 97 O2 Sat by Pulse Oximetry 97 O2 Sat by Pulse Oximetry 94 O2 Sat by Pulse Oximetry 94 Vital Signs Temp Pulse Resp BP Pulse Ox 98.6 F 95 18 173/82 99 11/09/17 16:08 11/09/17 16:08 11/09/17 16:08 11/09/17 16:08 11/09/17 16:08 Height: 5'2 Weight: 92 lbs NPO (# of Hours): MN Pain Scale: 1 - HEENT Pupil (Motor): Pupils equal, EOMI Mallampati: III Teeth: Edentulous Oral Opening: Less than or equal to 3 - BLUEPRINT DUPLICATOR LOC: Oriented BLUEPRINT DUPLICATOR Motor: Normal RUE, Normal LUE, Normal RLE, Normal LLE, Normal Face BLUEPRINT DUPLICATOR Sensory: Normal: RUE, LUE, RLE, LLE, Face - Cardiac Rhythm: Regular Murmur: None JVD: No Carotid Bruit: No - Pulmonary Breath Sounds: bilateral Clear Respiratory Effort: Symmetrical Anesthesia Assess/Plan ASA Score: 3 (HTN DM Seizure) Modified [place] Scale for Level of Consciousness: Cooperative, oriented, and tranquil Anesthetic Plan: General Monitoring Plan: Standard Monitors Recovery Plan: PACU (Discussed GA, agrees to proceed)
[2017-11-10] MEDS ORDERED: Ondansetron 4 MG/2 ML VIAL ONE (19:28)
[2017-11-10] MEDS ORDERED: Lidocaine -MPF 4% 5 ML AMPUL ONE (19:28)
[2017-11-10] MEDS ORDERED: *HR* Succinylcholine 200 MG/10 ML VIAL IVP ONE (19:28)
[2017-11-10] MEDS ORDERED: Acetaminophen IV 1,000 MG/100 ML INFUS..BTL ONE (19:32)
[2017-11-10] MEDS ORDERED: Lacri-Lube 3.5 GM TUBE ONE (19:48)
[2017-11-10] MEDS ORDERED: Clindamycin 900 MG/50 ML 900 MG/50 ML IV.SOLN IVPB ONE (19:55)
--- NOTE | 2017-11-10 20:48 | Orthopedic Operative Note ---
Date of procedure: 11/10/17 Procedure: OPERATIVE REPORT DATE OF PROCEDURE: 11/10/2017 SURGEON: Mariano Baeza MD CMV DRIVER(S): There are no assistants PREOPERATIVE DIAGNOSIS: Right intertrochanteric hip fracture POSTOPERATIVE DIAGNOSIS: Right intertrochanteric hip fracture PROCEDURE: Reduction and fixation of the right intertrochanteric hip fracture ANESTHESIA: General anesthesia PREOPERATIVE ANTIBIOTICS: And under milligrams of clindamycin ESTIMATED BLOOD LOSS: 75 milliliters IMPLANTS: [place] gamma 3 180 mm x 10 mm x 125 degree PREOPERATIVE NOTE AND INDICATIONS: This patient is an 87-year-old female who sustained a fall causing a right displaced intertrochanteric fracture. Recommendation was for reduction and fixation are to stabilize the hip to provide pain control and to help facilitate nursing care. The surgical plan was discussed with the patient. The risks, benefits, alternatives, and potential complications of this procedure were discussed with the patient including injury to veins, arteries, nerves, tendons, ligaments, and bone. Also discussed were the risks of infection, bleeding, pain, blood clots, the possible need for a blood transfusion, the possible need for further procedures, heart attack, stroke, and . Additional risks include malunion , nonunion, hardware failure, and the need to remove the hardware in the future.. All of this was explained in simple terms, and the patient verbalized understanding and wished to proceed. Consent was given to proceed with surgery. PROCEDURE: The patient was seen in the preoperative holding area where the identify and the consent were confirmed. The . was marked. Final questions were answered. The patient was brought back to the operating room. A huddle was performed with the patient and all vital surgical team members confirming patient identity , the correct procedure, and the correct operative site. General anesthesia was administered. The patient's postop fracture table with the right lower extremity in the fracture boot and the left lower extremity flexed and abducted the way. X-rays confirmed good reduction. The right thigh was prepped and draped in the usual sterile fashion. A surgical time out was performed immediately preceding the incision with all personnel in the operating room to confirm patient identity, the correct operative site and extremity, correct radiographic studies, availability of appropriate surgical equipment, and agreement on the planned procedure. A longitudinal incision was made and the guidewire placed in the proximal femur and the proximal femur was opened. Reaming commenced at 9 mm and went up to 12- 1/2 mm. The definitive 11 mm nail was placed and a second incision was made, the triple sleeve placed, and the guidewire placed in the femoral head. This was measured, drilled, and the lag screw placed. This was then compressed nicely and locked. Using a triple sleeve third incision was made distally and an interlocking screw placed in static mode was placed. X-rays confirmed good position of the hardware and fracture. The wounds were copiously irrigated and the fascia was closed with 0 Vicryl stitches followed by the skin with 3-0 Vicryl and zip tie closure. A honeycomb dressing was placed. The patient was taken off the traction table in good condition. The instrument, sponge, and needle counts were correct after wound closure. POST OPERATIVE PLAN: Weight Bearing: Weightbearing as tolerated on the bilateral lower extremities DVT Prophylaxis: Aspirin Activity: As tolerated with assistance Wound Care: Keep the dressing intact Pain Control: Defer to the hospitalist Perioperative antibiotic prophylaxis: 2 doses of Clindamycin Social work for discharge planning Follow Up: 2 weeks
--- NOTE | 2017-11-10 20:51 | Orthopedics Progress Note ---
Date of Encounter: 11/10/17 Time of Encounter: 20:49 - Assessment and Plan (1) Closed comminuted intertrochanteric fracture of right femur Current Visit: Yes Status: Acute Qualifiers: Encounter type: initial encounter Qualified Code(s): S72.141A - Displaced intertrochanteric fracture of right femur, initial encounter for closed fracture Objective Vital signs: Vital Signs Temp Pulse Resp BP Pulse Ox 11/10/17 17:57 97.8 F 74 18 116/72 94 11/10/17 17:37 89/56 11/10/17 14:50 98.8 F 75 16 90/56 95 11/10/17 11:15 98.2 F 97 18 106/61 93 11/10/17 09:04 97 11/10/17 08:30 141/66 11/10/17 06:56 98.2 F 98 16 105/70 97 11/10/17 04:29 98.2 F 98 18 98/61 97 11/09/17 23:41 97.5 F L 97 18 95/61 94 11/09/17 20:50 94 Intake and Output 11/10/17 11/10/17 11/10/17 07:59 15:59 23:59 Intake Total 0 / 0 0 / 0 1000 / 1000 Output Total 150 / 150 50 / 50 75 / 75 Balance -150 / -150 -50 / -50 925 / 925 Intake: IV Fluids 1000 / 1000 0.9 % Sodium Chloride 1,000 ML 1000 / 1000 @ 50 mls/hr IVC .Q20H [facility] Rx#: [id number] Oral 0 / 0 0 / 0 Output: Estimated Blood Loss 75 / 75 Catheter 150 / 150 50 / 50 Other: Meal NPO Percent of Meal Consumed 0% Blood Glucose* 194 156 - Labs CBC & BMP: 11/10/17 04:37 11/10/17 04:37 Labs: Abnormal lab results Hgb 10.8 g/dL (11.5-15.4) L D 11/10/17 04:37 MCH 26.7 pg (28.0-33.3) L 11/10/17 04:37 MCHC 30.3 g/dL (31.6-35.5) L 11/10/17 04:37 RDW 14.9 % (11.5-14.5) H 11/10/17 04:37 Carbon Dioxide 32 mEq/L (23-29) H 11/10/17 04:37 Creatinine 1.21 mg/dL (0.60-1.20) H 11/10/17 04:37 Est GFR ( Amer) 51 (> 60) L 11/10/17 04:37 Est GFR (Non-Af Amer) 42 (> 60) L 11/10/17 04:37 Glucose 172 mg/dL (70-105) H 11/10/17 04:37 POC Glucose 156 (58-89) H 11/10/17 11:18 - VTE Documentation of Mechanical Device: Intermittent pneumatic compression device Consult Discharge Plan - Plan Additional Instructions: CORRECTION DISCHARGE INSTRUCTIONS Dr. Baeza PROCEDURE PERFORMED Reduction and fixation of right hip. Incision care -Keep the dressing clean, dry, and intact. Weight bearing status -Weightbearing as tolerated to the bilateral lower extremities. Medications -Pain medication per the discharging medical doctor -Enteric coated aspirin 325 mg by mouth twice per day for 28 days from the date of the surgery. Other -Knee high SINAN hose 23 hours per day -Consult physical and occupational therapy for mobilization. -Up to chair with assistance at least twice per day. -Follow up with your primary care physician to discuss testing for bone mineral density. Follow-up with Dr. Baeza at the office 2 weeks from the surgery date for a post operative evaluation. Call the office at [phone] to schedule appointment. Referrals: Jean Joseph MD [Primary Care Provider] -
--- NOTE | 2017-11-10 21:55 | Anesthesia Evaluation Post Op ---
Date of Encounter: 11/10/17 Time of Encounter: 21:20 - Vital Signs Vital Signs: Vital Signs/O2 Sat/Glucose, Most Current Temp Pulse Resp BP Pulse Ox 11/10/17 21:41 97.4 F L 75 16 130/78 100 11/10/17 21:31 75 16 141/73 100 11/10/17 21:21 97.7 F 76 18 143/99 100 11/10/17 21:11 78 16 150/71 100 11/10/17 21:01 74 14 71/44 100 11/10/17 20:51 98.4 F 73 12 66/34 99 11/10/17 17:57 97.8 F 74 18 116/72 94 - Lungs Lungs: Clear Ascult./Percussion - Airway Airway: Non-obstructed - Cardiovascular Regular Rate - Mental Status Mental Status: Alert & Oriented, Answers Appropriately, Baseline Status - Pain Pain Scale: 1 - Nausea Vomiting Nausea Vomiting: Not Present - Hydration Hydration: Ice chips - Discharge PostOp Status: Transfer Patient to floor
[2017-11-10] MEDS: Mirtazapine 15 MG TABLET PO SCH (23:21)
[2017-11-10] MEDS: Melatonin 3 MG TABLET PO SCH (23:22)
[2017-11-11] MEDS: Insulin LISPRO 300 UNITS/3 ML VIAL SQ SCH ×4 (00:30→18:40)
[2017-11-11 01:34] LABS: Basophils # 0.1 K/mcL (0.0-0.2); Basophils % 0.7 %; Hematocrit 29.4 % (35.3-44.9); Immature Granulocytes % 0.8 % (0-4); Lymphocytes # 2.4 K/mcL (0.6-4.6); Lymphocytes % 26.9 %; Mean Corpuscular HGB Conc 30.6 g/dL (31.6-35.5); Mean Corpuscular Volume 88.3 fL (83.0-100.0); Mean Platelet Volume 10.9 fL (9.4-12.4); Neutrophils # 5.5 K/mcL (1.6-8.9); Platelet Count 214 K/mcL (140-400); Red Blood Count 3.33 M/mcL (3.82-4.97); Red Cell Distribution Width 15.1 % (11.5-14.5); Segmented Neutrophils % 60.6 %
[2017-11-11 01:52] LABS: Calcium 9.1 mg/dL (8.6-10.3); Potassium 3.8 mEq/L (3.5-5.1)
[2017-11-11] MEDS: *HR* HYDROmorphone (PF) 1 MG/ML SYRINGE IVP PRN ×3 (02:03→23:44)
[2017-11-11] MEDS: Clindamycin 900 MG/50 ML 900 MG/50 ML IV.SOLN IVPB SCH ×2 (05:17→14:09)
[2017-11-11] MEDS: Acetaminophen 325 MG TABLET PO PRN ×2 (05:20→18:29)
[2017-11-11] MEDS: Levothyroxine 25 MCG TABLET PO SCH (05:21)
--- NOTE | 2017-11-11 06:52 | Orthopedics Progress Note ---
Date of Encounter: 11/11/17 Time of Encounter: 06:52 Subjective Interval history: Patient was seen this morning doing well without complaints. Afebrile vital signs stable. Operative extremity: Neurovascularly intact Dressing clean dry and intact Calves nontender Assessment and plan: Continue with postoperative care Hematocrit 29 Objective Vital signs: Vital Signs Temp Pulse Resp BP Pulse Ox 11/11/17 05:49 98.5 F 82 14 128/62 100 11/11/17 02:41 101/57 11/11/17 00:16 97.6 F 80 94/53 99 11/10/17 23:42 97.6 F 99 11/10/17 23:00 97.9 F 79 18 124/68 98 11/10/17 22:15 97.7 F 79 20 124/68 98 11/10/17 21:57 75 16 126/76 100 11/10/17 21:51 76 16 128/78 100 11/10/17 21:41 97.4 F L 75 16 130/78 100 11/10/17 21:31 75 16 141/73 100 11/10/17 21:21 97.7 F 76 18 143/99 100 11/10/17 21:11 78 16 150/71 100 11/10/17 21:01 74 14 71/44 100 11/10/17 20:51 98.4 F 73 12 66/34 99 11/10/17 17:57 97.8 F 74 18 116/72 94 11/10/17 17:37 89/56 11/10/17 14:50 98.8 F 75 16 90/56 95 11/10/17 11:15 98.2 F 97 18 106/61 93 11/10/17 09:04 97 11/10/17 08:30 141/66 11/10/17 06:56 98.2 F 98 16 105/70 97 Intake and Output 11/10/17 11/10/17 11/11/17 15:59 23:59 07:59 Intake Total 0 / 0 1000 / 1000 Output Total 50 / 50 125 / 125 Balance -50 / -50 875 / 875 Intake: IV Fluids 1000 / 1000 0.9 % Sodium Chloride 1,000 ML 1000 / 1000 @ 50 mls/hr IVC .Q20H [facility] Rx#: [id number] Oral 0 / 0 Output: Estimated Blood Loss 75 / 75 Urine Amount (Catheter) 50 / 50 Catheter 50 / 50 Other: Meal NPO Percent of Meal Consumed 0% Blood Glucose* 156 127 162 - Labs CBC & BMP: 11/11/17 00:45 11/11/17 00:45 Labs: Abnormal lab results RBC 3.33 M/mcL (3.82-4.97) L 11/11/17 00:45 Hgb 9.0 g/dL (11.5-15.4) L D 11/11/17 00:45 Hct 29.4 % (35.3-44.9) L 11/11/17 00:45 MCH 27.0 pg (28.0-33.3) L 11/11/17 00:45 MCHC 30.6 g/dL (31.6-35.5) L 11/11/17 00:45 RDW 15.1 % (11.5-14.5) H 11/11/17 00:45 BUN 28 mg/dL (8-23) H 11/11/17 00:45 Creatinine 1.30 mg/dL (0.60-1.20) H 11/11/17 00:45 Est GFR ( Amer) 47 (> 60) L 11/11/17 00:45 Est GFR (Non-Af Amer) 39 (> 60) L 11/11/17 00:45 Glucose 159 mg/dL (70-105) H 11/11/17 00:45 POC Glucose 162 (58-89) H 11/11/17 05:48 - VTE Documentation of Mechanical Device: Intermittent pneumatic compression device Consult Discharge Plan - Plan Additional Instructions: CORRECTION DISCHARGE INSTRUCTIONS Dr. Baeza PROCEDURE PERFORMED Reduction and fixation of right hip. Incision care -Keep the dressing clean, dry, and intact. Weight bearing status -Weightbearing as tolerated to the bilateral lower extremities. Medications -Pain medication per the discharging medical doctor -Enteric coated aspirin 325 mg by mouth twice per day for 28 days from the date of the surgery. Other -Knee high SINAN hose 23 hours per day -Consult physical and occupational therapy for mobilization. -Up to chair with assistance at least twice per day. -Follow up with your primary care physician to discuss testing for bone mineral density. Follow-up with Dr. Baeza at the office 2 weeks from the surgery date for a post operative evaluation. Call the office at [phone] to schedule appointment. Referrals: Jean Joseph MD [Primary Care Provider] -
--- NOTE | 2017-11-11 07:34 | Electrocardiograph Report ---
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
[2017-11-11] MEDS: Cholecalciferol (D-3) 1,000 UNIT TABLET PO SCH (08:59)
[2017-11-11] MEDS: NIFEdipine XL (24 HR) 60 MG TAB.ER.24 PO SCH (08:59)
[2017-11-11] MEDS: *HR* LORazepam 0.5 MG TABLET PO SCH ×4 (08:59→23:17)
[2017-11-11] MEDS: Lisinopril 20 MG TABLET PO SCH (08:59)
[2017-11-11] MEDS: levETIRAcetam 250 MG TABLET PO SCH ×3 (08:59→23:18)
[2017-11-11] MEDS: Cyanocobalamin (B-12) 1,000 MCG TABLET PO SCH (08:59)
[2017-11-11] MEDS: Thiamine (B-1) 100 MG TABLET PO SCH (08:59)
[2017-11-11] MEDS: 0.9 % Sodium Chloride 1,000 ML IVC SCH (14:10)
[2017-11-11] MEDS ORDERED: CefTRIAXone 1,000 MG VIAL IM ONE (15:44)
--- NOTE | 2017-11-11 15:55 | Internal Med Progress Note ---
Date of Encounter: 11/11/17 Time of Encounter: 10:00 - Assessment and plan (1) DVT prophylaxis Current Visit: No Status: Acute Assessment and plan: Started on full dose aspirin by orthopedics. (2) Encephalopathy acute Current Visit: No Status: Acute Assessment and plan: Secondary to pain medication and anesthesia. We will avoid sedation. Provide one-to-one safety observation to prevent self injury and removal of IV lines and heart monitor. (3) Seizure disorder Current Visit: No Status: Acute Assessment and plan: LILIAN Keppra LILIAN Ativan We will check Keppra level. Seizure precautions. (4) T2DM (type 2 diabetes mellitus) Current Visit: Yes Status: Acute Assessment and plan: LDSS for coverage during stay Qualifiers: Diabetes mellitus complication status: with unspecified complications Diabetes mellitus custodial insulin use: without long term care social worker use Qualified Code( s): E11.8 - Type 2 diabetes mellitus with unspecified complications (5) Closed comminuted intertrochanteric fracture of right femur Current Visit: Yes Status: Acute Assessment and plan: CT showing closed comminuted right intertrochanteric femur fracture status post fall at home. Currently postoperative day 1 status post nailing of the right hip. Plan: PT OT. Continue with postop recovery. Daily CBC. DVT prophylaxis. Pain control with oxycodone. I have discussed the CODE STATUS with the patient's daughter at POA at the bedside today. She states that her mother should not undergo CPR or intubation for cardiac or respiratory arrest. I will enter DNR CCA CODE STATUS. Qualifiers: Encounter type: initial encounter Qualified Code(s): S72.141A - Displaced intertrochanteric fracture of right femur, initial encounter for closed fracture - Subjective Interval history: Patient is postop day 1 status post right hip nailing. She cannot provide history due to confusion and delirium. - Constitutional Vitals: Temp Pulse Resp BP Pulse Ox 98.3 F 100 17 98/58 100 11/11/17 11:58 11/11/17 11:58 11/11/17 11:58 11/11/17 11:58 11/11/17 11:58 General appearance: Present: cachectic, cooperative (scard about sleeping alone at night), A&O X 3, no acute distress, answers questions appropriately - Cardiovascular Cardiovascular exam: Present: RRR, +S1, +S2. Absent: diastolic murmur, gallop, rubs, systolic murmur - GI/Abdominal GI/Abdominal exam: Present: normal bowel sounds, soft, no peritoneal signs. Absent: distended, tenderness - Extremities Exam Extremities exam: Present: warm, radial pulses palpable and symmetrical. Absent : calf tenderness, cyanotic, pedal edema Internal Medicine: Result - Labs CBC & Chem 7: 11/11/17 00:45 11/11/17 00:45 Labs: Short CBC 11/11/17 Range/Units 00:45 WBC 9.0 (4.3-11.1) K/mcL Hgb 9.0 L D (11.5-15.4) g/dL Hct 29.4 L (35.3-44.9) % Plt Count 214 (140-400) K/mcL Neutrophils # 5.5 (1.6-8.9) K/mcL BMP 11/11/17 00:45 Sodium 140 Potassium 3.8 Chloride 103 Carbon Dioxide 29 BUN 28 H Creatinine 1.30 H Glucose 159 H Calcium 9.1 - ABG Interpretation ABG results: PT/INR, D-dimer PT 11.6 Seconds (9.4-12.1) 11/10/17 04:37 - Impressions Impressions Fluoroscopy 11/10/17 19:50 IMPRESSION: Intraprocedural fluoroscopic spot images as above. See separate procedure report for more information. D/ / Cody Vang MD / Cody Vang MD Interpreting Provider: Cody Vang MD Hip X-Ray 11/10/17 19:50 IMPRESSION: Intraprocedural fluoroscopic spot images as above. See separate procedure report for more information. D/ / Cody Vang MD / Cody Vang MD Interpreting Provider: Cody Vang MD - VTE Documentation of Mechanical Device: Intermittent pneumatic compression device Consult Discharge Plan - Plan Additional Instructions: [facility] DISCHARGE INSTRUCTIONS Dr. Baeza PROCEDURE PERFORMED Reduction and fixation of right hip. Incision care -Keep the dressing clean, dry, and intact. Weight bearing status -Weightbearing as tolerated to the bilateral lower extremities. Medications -Pain medication per the discharging medical doctor -Enteric coated aspirin 325 mg by mouth twice per day for 28 days from the date of the surgery. Other -Knee high SINAN hose 23 hours per day -Consult physical and occupational therapy for mobilization. -Up to chair with assistance at least twice per day. -Follow up with your primary care physician to discuss testing for bone mineral density. Follow-up with Dr. Baeza at the office 2 weeks from the surgery date for a post operative evaluation. Call the office at [phone] to schedule appointment. Referrals: Jean Joseph MD [Primary Care Provider] -
[2017-11-11] MEDS ORDERED: Lidocaine 1% 20 ML MDV IM ONE (16:02)
[2017-11-11] MEDS ORDERED: 0.9 % Sodium Chloride 250 ML IVC ONE (19:46)
[2017-11-11] MEDS ORDERED: 0.9 % Sodium Chloride 250 ML ONE ×2 (19:50→22:52)
[2017-11-11 20:29] LABS: Hematocrit 26.6 % (35.3-44.9); Hemoglobin 8.4 g/dL (11.5-15.4)
--- NOTE | 2017-11-11 20:43 | Event Note ---
Date of Encounter: 11/11/17 Time of Encounter: 20:00 Pt has agitation. BP get down to SBP around 78. Pt c/o chest discomfort. EKG has been done, shows V5, V6 mild T wave inversion, which is new compare with previous EKG. Pt's Hgb was 12 on 11/09, get down to 9 today, consider blood loss during surgery. Pt was given 250ml NS bolus, BP still low. Will give one unit of PRBC transfusion. Hold HTN medication. Closely monitor Vitals and H/H.
[2017-11-11] MEDS: Aspirin Enteric Coated 325 MG Tablet PO SCH (22:28)
[2017-11-11] MEDS: Melatonin 3 MG TABLET PO SCH (22:29)
[2017-11-11] MEDS: Mirtazapine 15 MG TABLET PO SCH ×2 (22:29→23:18)
[2017-11-12] MEDS: Insulin LISPRO 300 UNITS/3 ML VIAL SQ SCH ×4 (01:46→18:36)
[2017-11-12] MEDS: *HR* OxyCODONE/APAP 5/325 TABLET PO PRN (02:25)
[2017-11-12 05:24] LABS: BUN/Creatinine Ratio 36 (6-26); Blood Urea Nitrogen 27 mg/dL (8-23); Carbon Dioxide 29 mEq/L (23-29); Chloride 107 mEq/L (98-107); Glucose 138 mg/dL (70-105); Osmolality,Calculated 301 (280-300); Sodium 142 mEq/L (136-145); eGFR For African Americans > 60 (> 60); eGFR For Non-African Americans > 60 (> 60)
[2017-11-12 05:26] LABS: Basophils # 0.1 K/mcL (0.0-0.2); Basophils % 0.7 %; Hematocrit 32.8 % (35.3-44.9); Immature Granulocytes % 0.6 % (0-4); Lymphocytes # 1.7 K/mcL (0.6-4.6); Lymphocytes % 24.2 %; Mean Corpuscular HGB Conc 31.7 g/dL (31.6-35.5); Mean Corpuscular Hemoglobin 27.4 pg (28.0-33.3); Mean Corpuscular Volume 86.3 fL (83.0-100.0); Mean Platelet Volume 11.1 fL (9.4-12.4); Monocytes # 0.7 K/mcL (0.0-1.3); Monocytes % 10.5 %; Neutrophils # 4.5 K/mcL (1.6-8.9); Platelet Count 180 K/mcL (140-400); Red Cell Distribution Width 14.8 % (11.5-14.5)
[2017-11-12 09:47] LABS: Hemoglobin 10.4 g/dL (11.5-15.4)
[2017-11-12] MEDS: Thiamine (B-1) 100 MG TABLET PO SCH (11:18)
[2017-11-12] MEDS: Levothyroxine 25 MCG TABLET PO SCH (11:18)
[2017-11-12] MEDS: *HR* LORazepam 0.5 MG TABLET PO SCH ×3 (11:18→22:20)
[2017-11-12] MEDS: Aspirin Enteric Coated 325 MG Tablet PO SCH ×2 (11:18→22:21)
[2017-11-12] MEDS: Cyanocobalamin (B-12) 1,000 MCG TABLET PO SCH (11:18)
[2017-11-12] MEDS: levETIRAcetam 250 MG TABLET PO SCH ×2 (11:18→22:21)
[2017-11-12] MEDS: Cholecalciferol (D-3) 1,000 UNIT TABLET PO SCH (11:18)
--- NOTE | 2017-11-12 11:20 | Orthopedics Progress Note ---
Date of Encounter: 11/12/17 Time of Encounter: 11:19 Subjective Interval history: Patient was seen this morning resting comfortably Afebrile vital signs stable. Operative extremity: Neurovascularly intact Dressing clean dry and intact Calves nontender Assessment and plan: Continue with postoperative care Hematocrit 32 ortho stable for DC Objective Vital signs: Vital Signs Temp Pulse Resp BP Pulse Ox 11/12/17 07:00 97.6 F 84 14 115/74 98 11/12/17 04:49 99.5 F 85 26 131/80 100 11/12/17 03:15 98.4 F 83 20 107/74 100 11/12/17 01:39 121/63 11/12/17 01:03 98.1 F 76 20 103/63 100 11/11/17 23:40 123/75 11/11/17 23:22 98.8 F 81 16 144/89 100 11/11/17 23:07 98.2 F 85 20 116/64 99 11/11/17 22:03 77 22 92/48 100 11/11/17 21:48 77 24 115/72 100 11/11/17 21:33 79 26 114/69 80 11/11/17 21:19 79 24 93/52 100 11/11/17 21:03 81 26 101/51 95 11/11/17 20:52 98.9 F 11/11/17 20:48 78 26 101/64 98 11/11/17 20:33 77 26 78/43 100 11/11/17 20:25 97/59 11/11/17 20:23 80 22 78/42 98 11/11/17 20:19 77 24 73/46 98 11/11/17 20:04 26 76/48 100 11/11/17 19:49 87 91/61 100 11/11/17 19:47 86 22 63/53 99 11/11/17 19:40 98.5 F 87 22 72/45 99 11/11/17 16:04 98.4 F 82 16 122/59 98 11/11/17 11:58 98.3 F 100 17 98/58 100 Intake and Output 11/11/17 11/12/17 11/12/17 23:59 07:59 15:59 Intake Total 100 / 100 360 / 360 Output Total 150 / 150 150 / 150 Balance -50 / -50 -150 / -150 360 / 360 Intake: IV Fluids 100 / 100 0.9 % Sodium Chloride 1,000 ML 100 / 100 @ 50 mls/hr IVC .Q20H [facility] Rx#: [id number] Oral 360 / 360 Blood Product 0 / 0 Rbcs Leuko Poor As-1 Unit 0 / 0 [id number] Output: Urine 0 / 0 150 / 150 Catheter 150 / 150 Other: Meal Breakfast # Voids 1 # Urine Diapers 0 Weight 40.38 kg Blood Glucose* 228 108 Patient Weight 11/12/17 23:59 Weight 40.38 kg - Labs CBC & BMP: 11/12/17 04:47 11/12/17 04:47 Labs: Abnormal lab results RBC 3.80 M/mcL (3.82-4.97) L 11/12/17 04:47 Hgb 10.4 g/dL (11.5-15.4) L D 11/12/17 04:47 Hct 32.8 % (35.3-44.9) L 11/12/17 04:47 MCH 27.4 pg (28.0-33.3) L 11/12/17 04:47 RDW 14.8 % (11.5-14.5) H 11/12/17 04:47 BUN 27 mg/dL (8-23) H 11/12/17 04:47 BUN/Creatinine Ratio 36 (6-26) H 11/12/17 04:47 Glucose 138 mg/dL (70-105) H 11/12/17 04:47 POC Glucose 152 (58-89) H 11/12/17 06:03 Calculated Osmolality 301 (280-300) H 11/12/17 04:47 - VTE Documentation of Mechanical Device: Intermittent pneumatic compression device Consult Discharge Plan - Plan Additional Instructions: RETIREMENT DISCHARGE INSTRUCTIONS Dr. Baeza PROCEDURE PERFORMED Reduction and fixation of right hip. Incision care -Keep the dressing clean, dry, and intact. Weight bearing status -Weightbearing as tolerated to the bilateral lower extremities. Medications -Pain medication per the discharging medical doctor -Enteric coated aspirin 325 mg by mouth twice per day for 28 days from the date of the surgery. Other -Knee high SINAN hose 23 hours per day -Consult physical and occupational therapy for mobilization. -Up to chair with assistance at least twice per day. -Follow up with your primary care physician to discuss testing for bone mineral density. Follow-up with Dr. Baeza at the office 2 weeks from the surgery date for a post operative evaluation. Call the office at [phone] to schedule appointment. Referrals: Jean Joseph MD [Primary Care Provider] -
[2017-11-12] MEDS: Acetaminophen 325 MG TABLET PO PRN (16:32)
--- NOTE | 2017-11-12 17:07 | Internal Med Progress Note ---
Date of Encounter: 11/12/17 Time of Encounter: 10:05 - Assessment and plan (1) DVT prophylaxis Current Visit: No Status: Acute Assessment and plan: Started on full dose aspirin by orthopedics. (2) Encephalopathy acute Current Visit: No Status: Acute Assessment and plan: Secondary to pain medication and anesthesia. We will avoid sedation. Provide one-to-one safety observation to prevent self injury and removal of IV lines and heart monitor. (3) Seizure disorder Current Visit: No Status: Acute Assessment and plan: LILIAN Keppra LILIAN Ativan We will check Keppra level. Seizure precautions. (4) T2DM (type 2 diabetes mellitus) Current Visit: Yes Status: Acute Assessment and plan: LDSS for coverage during stay Qualifiers: Diabetes mellitus complication status: with unspecified complications Diabetes mellitus assisted insulin use: without lobsterman use Qualified Code( s): E11.8 - Type 2 diabetes mellitus with unspecified complications (5) Closed comminuted intertrochanteric fracture of right femur Current Visit: Yes Status: Acute Assessment and plan: CT showing closed comminuted right intertrochanteric femur fracture status post fall at home. Currently postoperative day 2 status post IM nailing of the right hip. Plan: PT OT. Continue with postop recovery. Daily CBC. DVT prophylaxis. Pain control with oxycodone. I have discussed the CODE STATUS with the patient's daughter at POA at the bedside today. She states that her mother should not undergo CPR or intubation for cardiac or respiratory arrest. I will enter DNR CCA CODE STATUS. Qualifiers: Encounter type: initial encounter Qualified Code(s): S72.141A - Displaced intertrochanteric fracture of right femur, initial encounter for closed fracture (6) Postoperative anemia due to acute blood loss Current Visit: Yes Status: Acute Assessment and plan: Status post transfusion of 1 unit PRBC. Upper. Hemoglobin response. Continue to monitor hemoglobin and hematocrit. (7) Hypertension Current Visit: No Status: Chronic Assessment and plan: Taking Zestril, Atenolol and Nifedipine at home. Blood pressure was low yesterday. Lisinopril and nifedipine were held. I will decrease the atenolol to 25 mg. Continue to monitor closely. Qualifiers: Hypertension type: essential hypertension Qualified Code(s): I10 - Essential (primary) hypertension (8) Acute kidney injury Current Visit: Yes Status: Acute Assessment and plan: Improved with IV fluids. Hold lisinopril. Avoid nephrotoxins. Monitor BUN and creatinine. - Subjective Interval history: Patient is postop day 2 status post right hip IM nailing. She cannot provide history due to confusion and delirium. Medical record review, documentation from the night physician reveals that the patient was hypotensive last night. She was given a small bolus of IV fluids however her blood pressure did not improve. She was given 1 unit of PRBC. - Constitutional Vitals: Temp Pulse Resp BP Pulse Ox 98.9 F 96 16 105/68 99 11/12/17 16:10 11/12/17 16:10 11/12/17 16:10 11/12/17 16:10 11/12/17 16:10 General appearance: Present: cachectic, cooperative (scard about sleeping alone at night), A&O X 1, no acute distress - Respiratory Respiratory exam: Present: CTAB. Absent: accessory muscle use, rales, rhonchi, wheezes - Cardiovascular Cardiovascular exam: Present: RRR, +S1, +S2. Absent: diastolic murmur, gallop, rubs, systolic murmur - GI/Abdominal GI/Abdominal exam: Present: normal bowel sounds, soft, no peritoneal signs. Absent: distended, tenderness - Extremities Exam Extremities exam: Present: joint swelling (Right hip soft tissue edema and surgical dressing in place.), warm, radial pulses palpable and symmetrical. Absent: calf tenderness, cyanotic, pedal edema - Skin Skin exam: Present: dry, intact Internal Medicine: Result - Labs CBC & Chem 7: 11/12/17 04:47 11/12/17 04:47 Labs: Short CBC 11/11/17 11/12/17 Range/Units 20:21 04:47 WBC 7.0 (4.3-11.1) K/mcL Hgb 8.4 L 10.4 L D (11.5-15.4) g/dL Hct 26.6 L 32.8 L (35.3-44.9) % Plt Count 180 (140-400) K/mcL Neutrophils # 4.5 (1.6-8.9) K/mcL BMP 11/12/17 04:47 Sodium 142 Potassium 4.0 Chloride 107 Carbon Dioxide 29 BUN 27 H Creatinine 0.75 Glucose 138 H Calcium 9.0 - ABG Interpretation ABG results: PT/INR, D-dimer PT 11.6 Seconds (9.4-12.1) 11/10/17 04:37 - VTE Documentation of Mechanical Device: Intermittent pneumatic compression device Consult Discharge Plan - Plan Additional Instructions: RESIDENTIAL DISCHARGE INSTRUCTIONS Dr. Baeza PROCEDURE PERFORMED Reduction and fixation of right hip. Incision care -Keep the dressing clean, dry, and intact. Weight bearing status -Weightbearing as tolerated to the bilateral lower extremities. Medications -Pain medication per the discharging medical doctor -Enteric coated aspirin 325 mg by mouth twice per day for 28 days from the date of the surgery. Other -Knee high SINAN hose 23 hours per day -Consult physical and occupational therapy for mobilization. -Up to chair with assistance at least twice per day. -Follow up with your primary care physician to discuss testing for bone mineral density. Follow-up with Dr. Baeza at the office 2 weeks from the surgery date for a post operative evaluation. Call the office at [phone] to schedule appointment. Referrals: Jean Joseph MD [Primary Care Provider] -
[2017-11-12] MEDS: Mirtazapine 15 MG TABLET PO SCH (22:15)
[2017-11-12] MEDS: Melatonin 3 MG TABLET PO SCH (22:18)
[2017-11-12] MEDS: 0.9 % Sodium Chloride 1,000 ML IVC SCH (23:37)
[2017-11-13 01:28] LABS: Basophils % 0.6 %; Hematocrit 29.7 % (35.3-44.9); Hemoglobin 9.3 g/dL (11.5-15.4); Immature Granulocytes % 0.6 % (0-4); Immature Platelets 4.8 % (1.1-6.1); Lymphocytes # 1.9 K/mcL (0.6-4.6); Lymphocytes % 25.9 %; Mean Corpuscular HGB Conc 31.3 g/dL (31.6-35.5); Mean Corpuscular Hemoglobin 27.3 pg (28.0-33.3); Mean Corpuscular Volume 87.1 fL (83.0-100.0); Mean Platelet Volume 10.9 fL (9.4-12.4); Monocytes # 0.8 K/mcL (0.0-1.3); Monocytes % 11.5 %; Neutrophils # 4.4 K/mcL (1.6-8.9); Platelet Count 173 K/mcL (140-400); Red Blood Count 3.41 M/mcL (3.82-4.97); Red Cell Distribution Width 15.2 % (11.5-14.5); Segmented Neutrophils % 61.4 %
--- NOTE | 2017-11-13 01:32 | Orthopedics Progress Note ---
Date of Encounter: 11/13/17 Time of Encounter: 01:32 Subjective Interval history: Patient was seen this morning resting comfortably Afebrile vital signs stable. Operative extremity: Neurovascularly intact Dressing clean dry and intact Calves nontender Assessment and plan: Continue with postoperative care ortho stable for discharge Objective Vital signs: Vital Signs Temp Pulse Resp BP Pulse Ox 11/12/17 23:23 98.9 F 62 24 133/61 95 11/12/17 22:09 98.1 F 80 20 115/68 96 11/12/17 18:17 98.4 F 87 30 113/62 97 11/12/17 16:10 98.9 F 96 16 105/68 99 11/12/17 12:26 98.6 F 87 16 110/65 98 11/12/17 07:00 97.6 F 84 14 115/74 98 11/12/17 04:49 99.5 F 85 26 131/80 100 11/12/17 03:15 98.4 F 83 20 107/74 100 11/12/17 01:39 121/63 Intake and Output 11/12/17 11/12/17 11/13/17 15:59 23:59 07:59 Intake Total 600 / 600 600 / 600 Output Total 350 / 350 Balance 600 / 600 250 / 250 Intake: IV Fluids 0 / 0 0.9 % Sodium Chloride 1,000 ML 0 / 0 @ 50 mls/hr IVC .Q20H [facility] Rx#: [id number] Oral 600 / 600 600 / 600 Output: Urine 350 / 350 Other: Meal Lunch Dinner Percent of Meal Consumed 50% 10% # Urine Diapers 2 Blood Glucose* 181 128 - Labs CBC & BMP: 11/12/17 04:47 11/12/17 04:47 Labs: Abnormal lab results RBC 3.80 M/mcL (3.82-4.97) L 11/12/17 04:47 Hgb 10.4 g/dL (11.5-15.4) L D 11/12/17 04:47 Hct 32.8 % (35.3-44.9) L 11/12/17 04:47 MCH 27.4 pg (28.0-33.3) L 11/12/17 04:47 RDW 14.8 % (11.5-14.5) H 11/12/17 04:47 BUN 27 mg/dL (8-23) H 11/12/17 04:47 BUN/Creatinine Ratio 36 (6-26) H 11/12/17 04:47 Glucose 138 mg/dL (70-105) H 11/12/17 04:47 POC Glucose 128 (58-89) H 11/12/17 23:17 Calculated Osmolality 301 (280-300) H 11/12/17 04:47 - VTE Documentation of Mechanical Device: Intermittent pneumatic compression device Consult Discharge Plan - Plan Additional Instructions: INTERMEDIATE DISCHARGE INSTRUCTIONS Dr. Baeza PROCEDURE PERFORMED Reduction and fixation of right hip. Incision care -Keep the dressing clean, dry, and intact. Weight bearing status -Weightbearing as tolerated to the bilateral lower extremities. Medications -Pain medication per the discharging medical doctor -Enteric coated aspirin 325 mg by mouth twice per day for 28 days from the date of the surgery. Other -Knee high SINAN hose 23 hours per day -Consult physical and occupational therapy for mobilization. -Up to chair with assistance at least twice per day. -Follow up with your primary care physician to discuss testing for bone mineral density. Follow-up with Dr. Baeza at the office 2 weeks from the surgery date for a post operative evaluation. Call the office at [phone] to schedule appointment. Referrals: Jean Joseph MD [Primary Care Provider] -
[2017-11-13 01:56] LABS: BUN/Creatinine Ratio 35 (6-26); Blood Urea Nitrogen 23 mg/dL (8-23); Calcium 9.1 mg/dL (8.6-10.3); Carbon Dioxide 28 mEq/L (23-29); Chloride 106 mEq/L (98-107); Glucose 139 mg/dL (70-105); Osmolality,Calculated 298 (280-300); Potassium 3.5 mEq/L (3.5-5.1); Sodium 141 mEq/L (136-145); eGFR For African Americans > 60 (> 60); eGFR For Non-African Americans > 60 (> 60)
[2017-11-13] MEDS: Insulin LISPRO 300 UNITS/3 ML VIAL SQ SCH ×4 (01:58→17:02)
[2017-11-13] MEDS: Acetaminophen 325 MG TABLET PO PRN (03:21)
[2017-11-13] MEDS: Levothyroxine 25 MCG TABLET PO SCH (05:35)
[2017-11-13] MEDS: *HR* OxyCODONE/APAP 5/325 TABLET PO PRN ×4 (09:32→22:31)
[2017-11-13] MEDS: Thiamine (B-1) 100 MG TABLET PO SCH (09:33)
[2017-11-13] MEDS: levETIRAcetam 250 MG TABLET PO SCH ×2 (09:33→20:32)
[2017-11-13] MEDS: Cholecalciferol (D-3) 1,000 UNIT TABLET PO SCH (09:33)
[2017-11-13] MEDS: Aspirin Enteric Coated 325 MG Tablet PO SCH ×2 (09:33→20:32)
[2017-11-13] MEDS: Cyanocobalamin (B-12) 1,000 MCG TABLET PO SCH (09:33)
[2017-11-13] MEDS: *HR* LORazepam 0.5 MG TABLET PO SCH ×3 (09:34→20:32)
--- NOTE | 2017-11-13 15:04 | Internal Med Progress Note ---
Date of Encounter: 11/13/17 Time of Encounter: 10:00 - Assessment and plan (1) DVT prophylaxis Current Visit: No Status: Acute Assessment and plan: Started on full dose aspirin by orthopedics. (2) Encephalopathy acute Current Visit: No Status: Acute Assessment and plan: Secondary to pain medication and anesthesia. Possible delirium secondary to medication and unfamiliar environment. We will avoid excessive sedation. Fall precautions. (3) Seizure disorder Current Visit: No Status: Acute Assessment and plan: LILIAN Keppra LILIAN Ativan Follow[facility]up [facility]. Seizure precautions. 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 Currently postoperative day 3 status post IM nailing of the right hip. Plan: PT OT. Continue with postop recovery. Daily CBC. DVT prophylaxis. Pain control with oxycodone. Social work consult for placement and subacute rehabilitation. CODE STATUS is DNR CCA DNI. Qualifiers: Encounter type: initial encounter Qualified Code(s): S72.141A - Displaced intertrochanteric fracture of right femur, initial encounter for closed fracture (6) Postoperative anemia due to acute blood loss Current Visit: Yes Status: Acute Assessment and plan: Status post transfusion of 1 unit PRBC yesterday. We will continue to monitor hemoglobin and hematocrit. (7) Hypertension Current Visit: No Status: Chronic Assessment and plan: Taking Zestril, Atenolol and Nifedipine at home. Blood pressure was low yesterday. Lisinopril and nifedipine were held. I decreased the atenolol to 25 mg twice a day. Blood pressure is adequately controlled at 137/73. Continue to monitor closely. Qualifiers: Hypertension type: essential hypertension Qualified Code(s): I10 - Essential (primary) hypertension (8) Acute kidney injury Current Visit: Yes Status: Acute Assessment and plan: Creatinine normal today. Avoid nephrotoxins. - Subjective Interval history: Patient is postop day 3 status post right hip IM nailing. She cannot provide history due to confusion and delirium. - Constitutional Vitals: Temp Pulse Resp BP Pulse Ox 98.3 F 86 18 127/73 96 11/13/17 10:14 11/13/17 10:14 11/13/17 10:14 11/13/17 10:14 11/13/17 10:14 General appearance: Present: cachectic, cooperative (scard about sleeping alone at night), A&O X 1, no acute distress - Respiratory Respiratory exam: Present: CTAB. Absent: accessory muscle use, rales, rhonchi, wheezes - Cardiovascular Cardiovascular exam: Present: RRR, +S1, +S2. Absent: diastolic murmur, gallop, rubs, systolic murmur - GI/Abdominal GI/Abdominal exam: Present: normal bowel sounds, soft, no peritoneal signs. Absent: distended, tenderness - Extremities Exam Extremities exam: Present: warm, radial pulses palpable and symmetrical. Absent : calf tenderness, cyanotic, pedal edema Internal Medicine: Result - Labs CBC & Chem 7: 11/13/17 01:10 11/13/17 01:10 Labs: Short CBC 11/13/17 Range/Units 01:10 WBC 7.2 (4.3-11.1) K/mcL Hgb 9.3 L (11.5-15.4) g/dL Hct 29.7 L (35.3-44.9) % Plt Count 173 (140-400) K/mcL Neutrophils # 4.4 (1.6-8.9) K/mcL BMP 11/13/17 01:10 Sodium 141 Potassium 3.5 Chloride 106 Carbon Dioxide 28 BUN 23 Creatinine 0.65 Glucose 139 H Calcium 9.1 - ABG Interpretation ABG results: PT/INR, D-dimer PT 11.6 Seconds (9.4-12.1) 11/10/17 04:37 - VTE Documentation of Mechanical Device: Intermittent pneumatic compression device Consult Discharge Plan - Plan Additional Instructions: LONG TERM DISCHARGE INSTRUCTIONS Dr. Baeza PROCEDURE PERFORMED Reduction and fixation of right hip. Incision care -Keep the dressing clean, dry, and intact. Weight bearing status -Weightbearing as tolerated to the bilateral lower extremities. Medications -Pain medication per the discharging medical doctor -Enteric coated aspirin 325 mg by mouth twice per day for 28 days from the date of the surgery. Other -Knee high SINAN hose 23 hours per day -Consult physical and occupational therapy for mobilization. -Up to chair with assistance at least twice per day. -Follow up with your primary care physician to discuss testing for bone mineral density. Follow-up with Dr. Baeza at the office 2 weeks from the surgery date for a post operative evaluation. Call the office at [phone] to schedule appointment. Referrals: Jean Joseph MD [Primary Care Provider] -
[2017-11-13] MEDS: 0.9 % Sodium Chloride 1,000 ML IVC SCH (18:04)
[2017-11-13] MEDS: Mirtazapine 15 MG TABLET PO SCH (20:32)
[2017-11-13] MEDS: Melatonin 3 MG TABLET PO SCH (20:32)
[2017-11-13] MEDS ORDERED: Insulin LISPRO 300 UNITS/3 ML VIAL SQ SCH (21:00)
[2017-11-14 05:35] LABS: Basophils % 0.7 %; Hematocrit 30.8 % (35.3-44.9); Hemoglobin 9.3 g/dL (11.5-15.4); Immature Granulocytes % 0.3 % (0-4); Lymphocytes # 1.4 K/mcL (0.6-4.6); Lymphocytes % 24.8 %; Mean Corpuscular HGB Conc 30.2 g/dL (31.6-35.5); Mean Corpuscular Volume 89.3 fL (83.0-100.0); Mean Platelet Volume 10.7 fL (9.4-12.4); Monocytes # 0.6 K/mcL (0.0-1.3); Monocytes % 9.8 %; Neutrophils # 3.7 K/mcL (1.6-8.9); Platelet Count 174 K/mcL (140-400); Red Blood Count 3.45 M/mcL (3.82-4.97); Red Cell Distribution Width 14.9 % (11.5-14.5); Segmented Neutrophils % 64.4 %
[2017-11-14 05:46] LABS: BUN/Creatinine Ratio 28 (6-26); Blood Urea Nitrogen 18 mg/dL (8-23); Calcium 8.7 mg/dL (8.6-10.3); Carbon Dioxide 28 mEq/L (23-29); Chloride 109 mEq/L (98-107); Glucose 204 mg/dL (70-105); Osmolality,Calculated 300 (280-300); Potassium 4.1 mEq/L (3.5-5.1); Sodium 141 mEq/L (136-145); eGFR For African Americans > 60 (> 60); eGFR For Non-African Americans > 60 (> 60)
[2017-11-14] MEDS: *HR* OxyCODONE/APAP 5/325 TABLET PO PRN (06:36)
[2017-11-14] MEDS: Levothyroxine 25 MCG TABLET PO SCH (06:36)
[2017-11-14] MEDS: Aspirin Enteric Coated 325 MG Tablet PO SCH (07:36)
[2017-11-14] MEDS: Thiamine (B-1) 100 MG TABLET PO SCH (07:37)
[2017-11-14] MEDS: Cyanocobalamin (B-12) 1,000 MCG TABLET PO SCH (07:37)
[2017-11-14] MEDS: levETIRAcetam 250 MG TABLET PO SCH (07:37)
[2017-11-14] MEDS: Cholecalciferol (D-3) 1,000 UNIT TABLET PO SCH (07:37)
[2017-11-14] MEDS: Insulin LISPRO 300 UNITS/3 ML VIAL SQ SCH ×2 (07:37→11:45)
[2017-11-14] MEDS: *HR* LORazepam 0.5 MG TABLET PO SCH (07:37)
--- NOTE | 2017-11-14 10:06 | Discharge Summary ---
<ToñabelleMacarioevangelista Prieto - Last Filed: 11/14/17 12:02> Date of Encounter: 11/14/17 Time of Encounter: 10:00 - Discharge Diagnosis (1) Closed comminuted intertrochanteric fracture of right femur Priority: Primary Status: Acute Qualifiers: Encounter type: initial encounter Qualified Code(s): S72.141A - Displaced intertrochanteric fracture of right femur, initial encounter for closed fracture (2) Postoperative anemia due to acute blood loss Priority: Secondary Status: Acute (3) T2DM (type 2 diabetes mellitus) Priority: Secondary Status: Chronic Qualifiers: Diabetes mellitus complication status: with unspecified complications Diabetes mellitus 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 insulin use: without long-term use Qualified Code( s): E11.8 - Type 2 diabetes mellitus with unspecified complications (4) Hypertension Priority: Secondary Status: Chronic Qualifiers: Hypertension type: essential hypertension Qualified Code(s): I10 - Essential (primary) hypertension (5) Encephalopathy acute Priority: Secondary Status: Acute (6) Acute kidney injury Priority: Secondary Status: Acute (7) DVT prophylaxis Priority: Secondary Status: Acute - Discharge Medications Prescriptions: OxyCODONE/APAP 5/325 [Percocet 5/325 MG] 1 each PO Q4HR PRN #112 tablet PRN Reason: Pain Docusate [Colace] 100 mg PO BID #60 capsule Salsalate [Disalcid] 500 mg PO BID #60 tablet Home Medications: Aspirin 81 mg PO DAILY 05/13/16 [History] Atenolol [Tenormin] 50 mg PO DAILY 05/13/16 [History] Cholecalciferol (D-3) [Vitamin D] 1,000 unit PO DAILY 05/13/16 [History] Levothyroxine [Synthroid] 25 mcg PO 0630 05/13/16 [History] Rosuvastatin Calcium [Crestor] 5 mg PO QAM 05/13/16 [History] metFORMIN [Glucophage] 500 mg PO BIDWM 05/13/16 [History] Acetaminophen/Butalbital/Caffe [Fioricet] 1 tab PO Q4H PRN 07/22/16 [History] Ibuprofen [Motrin] 200 mg PO TID PRN #0 07/23/16 [Rx] Glimepiride [Amaryl] 1 mg PO DAILY 08/07/17 [History] Ferrous Sulfate 325 mg PO BIDWM tablet 08/09/17 [Rx] Calcitonin-[place], Synthetic [Miacalcin] 1 spr NS DAILY 09/16/17 [History] Docusate [Colace] 100 mg PO BID 09/16/17 [History] Ropinirole HCl [Requip] 0.25 mg PO TID 09/16/17 [History] Tramadol HCl [Ultram] 50 mg PO Q6H PRN 09/16/17 [History] Benzonatate [Tessalon] 100 mg PO TID PRN 10/16/17 [History] Cyanocobalamin (B-12) [Vitamin B12] 1,000 mcg PO DAILY 10/16/17 [History] LORazepam [Ativan] 0.5 mg PO TID 10/16/17 [History] Lisinopril [Zestril] 20 mg PO DAILY 10/16/17 [History] Melatonin 1 mg PO HS 10/16/17 [History] Thiamine (B-1) [Vitamin B-1] 100 mg PO DAILY 10/16/17 [History] levETIRAcetam [Keppra] 250 mg PO BID 10/16/17 [History] NIFEdipine [Nifedipine ER] 60 mg PO DAILY 10/18/17 [History] Calcium Carbonate [Tums] 500 mg PO Q6H PRN 11/09/17 [History] Furosemide [Lasix] 20 mg PO DAILY 11/09/17 [History] Mirtazapine [Remeron] 7.5 mg PO HS 11/09/17 [History] Polyethylene Glycol 3350 [MiraLAX] 17 gm PO DAILY 11/09/17 [History] Acetaminophen/Butalbital/Caffe [Fioricet] 1 tab PO Q4H PRN 11/10/17 [History] Ondansetron ODT [Zofran ODT] 4 mg SL Q6HR PRN 11/10/17 [History] Simethicone [Bicarsim] 80 mg PO QID PRN 11/10/17 [History] Docusate [Colace] 100 mg PO BID #60 capsule 11/14/17 [Rx] OxyCODONE/APAP 5/325 [Percocet 5/325 MG] 1 each PO Q4HR PRN #112 tablet [Rx] Salsalate [Disalcid] 500 mg PO BID #60 tablet 11/14/17 [Rx] Allergies/Adverse Reactions: 3 Allergy/AdvReac Type Severity Reaction Status Date / Time codeine Allergy Hallucinati Verified 10/15/17 20:32 [From Tylenol-Codeine #3] ng gabapentin [From Neurontin] Allergy See Verified 10/15/17 20:32 Comments hydrocodone [From Vicodin] Allergy Dizziness Verified 10/15/17 20:32 levomefolate calcium Allergy Dizziness Verified 10/15/17 20:32 [From Metanx] mecobalamin [From Metanx] Allergy Dizziness Verified 10/15/17 20:32 Penicillins [PCN] Allergy Hives Verified 10/15/17 20:32 pregabalin [From Lyrica] Allergy Hives Verified 10/15/17 20:32 propoxyphene Allergy Hallucinati Verified 10/15/17 20:32 [From Darvocet-N] ng pyridoxal phosphate Allergy Dizziness Verified 10/15/17 20:32 [From Metanx] Procedures/tests Complete & Pending: Procedures Performed prior 72 hours Category Date Time Status ECG 12 lead ECG [ECG] Stat Y 11/11/17 09:26 Completed ECG 12 lead ECG [ECG] Stat Y 11/11/17 20:11 Completed Date of admission: 11/09/17 15:43 Primary care physician: Jean Joseph MD Consults: 11/09/17 18:00 Consult to Orthopedic Surgery [CONS] Routine Consulting Provider: Mariano Baeza Reason for Consult: Right comminuted IT femur fx Call Completed: Yes 11/10/17 20:44 Consult to Occupational Therapy [CONS] Routine Comment: Evaluate, develop and implement POC Reason for Consult: post hip surgery Consult to Orthopedic Navigator [CONS] [CONS] Routine Consult to Physical Therapy [CONS] Routine Comment: Evaluate, develop and implement POC Reason for Consult: post hip surgery Consult to Engineering Administrator [CONS] Routine Reason for SW Consult: post -op hip fracture RT Post Op Consult [CONS] Routine Discharging clinician: Nanette Darling Anticipated date of discharge: 11/14/17 - Patient Status Disposition: Transfer SNF Condition: Fair Functional capacity at discharge: bed bound Overall status at discharge: patient is progressing back to baseline - Discharge Instructions Follow Up With: Jean Joseph MD [Primary Care Provider] - Additional Instructions: JAIL DISCHARGE INSTRUCTIONS Dr. Baeza PROCEDURE PERFORMED Reduction and fixation of right hip. Incision care -Keep the dressing clean, dry, and intact. Weight bearing status -Weightbearing as tolerated to the bilateral lower extremities. Medications -Pain medication per the discharging medical doctor -Enteric coated aspirin 325 mg by mouth twice per day for 28 days from the date of the surgery. Other -Knee high SINAN hose 23 hours per day -Consult physical and occupational therapy for mobilization. -Up to chair with assistance at least twice per day. -Follow up with your primary care physician to discuss testing for bone mineral density. Follow-up with Dr. Baeza at the office 2 weeks from the surgery date for a post operative evaluation. Call the office at [phone] to schedule appointment. - Diet and Activity Diet: diabetic diet Interval History: Patient seen and examined. She is alert and oriented. States that she has mild pain to her back/hip. Hospital course: Ms. Seals is a 87 year old female admitted for comminuted intertrochanteric hip fracture after a fall in the bathroom. She was at [facility] for rehabilitation after having kyphoplasty for compression fractures of T6 and T7 along with a sternal fracture. She had an open reduction and internal fixation of the right hip by orthopedic surgery. She is being discharged back to the [facility] facility [facility]. - Time Spent with Patient Total time spent providing and/or coordinating discharge services: - Constitutional Vitals: Temp Pulse Resp BP Pulse Ox 97.4 F L 86 16 135/72 98 11/14/17 06:39 11/14/17 06:39 11/14/17 06:39 11/14/17 06:39 11/14/17 07:51 General appearance: Present: cachectic, cooperative, A&O X 3, no acute distress - Head Head exam: Present: atraumatic, normocephalic - Eye Eye exam: Present: PERRL, conjuntiva pink, sclera anicteric Pupils: Present: PERRL - Neck Neck exam general surgery: Present: supple, trachea midline - Respiratory Respiratory exam: Present: CTAB. Absent: accessory muscle use, rales, rhonchi, wheezes - Cardiovascular Cardiovascular exam: Present: RRR, systolic murmur - GI/Abdominal GI/Abdominal exam: Present: normal bowel sounds, soft, no peritoneal signs. Absent: distended, tenderness - Extremities Exam Extremities exam: Present: warm. Absent: pedal edema, tenderness Additional comments: Right hip with postsurgical dressing: Clean, dry, and intact - Neurological Exam Neurological exam: Present: CN II-XII intact, oriented X3, no focal deficits. Absent: pronater drift, facial droop, speech deficit - Skin Skin exam: Present: dry, intact - VTE Documentation of Mechanical Device: Venous foot pump, device <Jose Brandvan - Last Filed: 11/14/17 19:27> Date of Encounter: 11/14/17 - Discharge Diagnosis (1) DVT prophylaxis Status: Acute (2) Encephalopathy acute Status: Acute (3) Seizure disorder Status: Chronic (4) T2DM (type 2 diabetes mellitus) Status: Chronic Qualifiers: Diabetes mellitus complication status: with unspecified complications Diabetes mellitus long-term insulin use: without 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 use Qualified Code( s): E11.8 - Type 2 diabetes mellitus with unspecified complications (5) Closed comminuted intertrochanteric fracture of right femur Status: Acute Qualifiers: Encounter type: initial encounter Qualified Code(s): S72.141A - Displaced intertrochanteric fracture of right femur, initial encounter for closed fracture (6) Postoperative anemia due to acute blood loss Status: Acute (7) Hypertension Status: Chronic Qualifiers: Hypertension type: essential hypertension Qualified Code(s): I10 - Essential (primary) hypertension (8) Acute kidney injury Status: Acute Procedures/tests Complete & Pending: Procedures Performed prior 72 hours Category Date Time Status ECG 12 lead ECG [ECG] Routine Y 11/11/17 20:24 Completed ECG 12 lead ECG [ECG] Stat Y 11/11/17 20:11 Completed Date of admission: 11/09/17 15:43 Primary care physician: Jean Joseph MD Consults: 11/09/17 18:00 Consult to Orthopedic Surgery [CONS] Routine Consulting Provider: Mariano Baeza Reason for Consult: Right comminuted IT femur fx Call Completed: Yes 11/10/17 20:44 Consult to Occupational Therapy [CONS] Routine Comment: Evaluate, develop and implement POC Reason for Consult: post hip surgery Consult to Orthopedic Navigator [CONS] [CONS] Routine Consult to Physical Therapy [CONS] Routine Comment: Evaluate, develop and implement POC Reason for Consult: post hip surgery Consult to Engineering Administrator [CONS] Routine Reason for SW Consult: post -op hip fracture RT Post Op Consult [CONS] Routine Hospital course: Ms. Seals is a 87 year old female - Time Spent with Patient Total time spent providing and/or coordinating discharge services: - Constitutional Vitals: Temp Pulse Resp BP Pulse Ox 98.2 F 80 18 117/63 95 11/14/17 10:47 11/14/17 10:47 11/14/17 10:47 11/14/17 10:47 11/14/17 10:47 - Attending Attestation I conducted a face to face diagnostic evaluation of this patient and my medical decision-making was reviewed with the Resident Physician, Dr Nanette Darling. I agree with the documented findings, disposition and treatment plan as described except to the extent set forth below: Patient's mental status has improved. She is awake alert oriented 2. She has participated in physical therapy. Hemoglobin has been stable. Plan: Discharge to subacute rehabilitation. Roberto Brand MD
--- NOTE | 2017-11-14 10:08 | Physician Discharge Referral ---
ExtendedCare Referral Info Transfer To: [place] Provider in Charge after Transfer: PCP Institutional Level of Care: Skilled - Diagnosis (1) Encephalopathy acute Priority: Primary Status: Acute (2) Closed comminuted intertrochanteric fracture of right femur Priority: Primary Status: Acute (3) Postoperative anemia due to acute blood loss Priority: Primary Status: Acute (4) Acute kidney injury Priority: Secondary Status: Acute (5) T2DM (type 2 diabetes mellitus) Priority: Secondary Status: Chronic (6) Seizure disorder Priority: Secondary Status: Chronic (7) Hypertension Priority: Secondary Status: Chronic - Transfer Medications Prescriptions: OxyCODONE/APAP 5/325 [Percocet 5/325 MG] 1 each PO Q4HR PRN #112 tablet PRN Reason: Pain Docusate [Colace] 100 mg PO BID #60 capsule Salsalate [Disalcid] 500 mg PO BID #60 tablet Home Medications: Aspirin 81 mg PO DAILY 05/13/16 [History] Atenolol [Tenormin] 50 mg PO DAILY 05/13/16 [History] Cholecalciferol (D-3) [Vitamin D] 1,000 unit PO DAILY 05/13/16 [History] Levothyroxine [Synthroid] 25 mcg PO 0630 05/13/16 [History] Rosuvastatin Calcium [Crestor] 5 mg PO QAM 05/13/16 [History] metFORMIN [Glucophage] 500 mg PO BIDWM 05/13/16 [History] Acetaminophen/Butalbital/Caffe [Fioricet] 1 tab PO Q4H PRN 07/22/16 [History] Ibuprofen [Motrin] 200 mg PO TID PRN #0 07/23/16 [Rx] Glimepiride [Amaryl] 1 mg PO DAILY 08/07/17 [History] Ferrous Sulfate 325 mg PO BIDWM tablet 08/09/17 [Rx] Calcitonin-[place], Synthetic [Miacalcin] 1 spr NS DAILY 09/16/17 [History] Docusate [Colace] 100 mg PO BID 09/16/17 [History] Ropinirole HCl [Requip] 0.25 mg PO TID 09/16/17 [History] Tramadol HCl [Ultram] 50 mg PO Q6H PRN 09/16/17 [History] Benzonatate [Tessalon] 100 mg PO TID PRN 10/16/17 [History] Cyanocobalamin (B-12) [Vitamin B12] 1,000 mcg PO DAILY 10/16/17 [History] LORazepam [Ativan] 0.5 mg PO TID 10/16/17 [History] Lisinopril [Zestril] 20 mg PO DAILY 10/16/17 [History] Melatonin 1 mg PO HS 10/16/17 [History] Thiamine (B-1) [Vitamin B-1] 100 mg PO DAILY 10/16/17 [History] levETIRAcetam [Keppra] 250 mg PO BID 10/16/17 [History] NIFEdipine [Nifedipine ER] 60 mg PO DAILY 10/18/17 [History] Calcium Carbonate [Tums] 500 mg PO Q6H PRN 11/09/17 [History] Furosemide [Lasix] 20 mg PO DAILY 11/09/17 [History] Mirtazapine [Remeron] 7.5 mg PO HS 11/09/17 [History] Polyethylene Glycol 3350 [MiraLAX] 17 gm PO DAILY 11/09/17 [History] Acetaminophen/Butalbital/Caffe [Fioricet] 1 tab PO Q4H PRN 11/10/17 [History] Ondansetron ODT [Zofran ODT] 4 mg SL Q6HR PRN 11/10/17 [History] Simethicone [Bicarsim] 80 mg PO QID PRN 11/10/17 [History] Docusate [Colace] 100 mg PO BID #60 capsule 11/14/17 [Rx] OxyCODONE/APAP 5/325 [Percocet 5/325 MG] 1 each PO Q4HR PRN #112 tablet [Rx] Salsalate [Disalcid] 500 mg PO BID #60 tablet 11/14/17 [Rx] Allergies/Adverse Reactions: 3 Allergy/AdvReac Type Severity Reaction Status Date / Time codeine Allergy Hallucinati Verified 10/15/17 20:32 [From Tylenol-Codeine #3] ng gabapentin [From Neurontin] Allergy See Verified 10/15/17 20:32 Comments hydrocodone [From Vicodin] Allergy Dizziness Verified 10/15/17 20:32 levomefolate calcium Allergy Dizziness Verified 10/15/17 20:32 [From Metanx] mecobalamin [From Metanx] Allergy Dizziness Verified 10/15/17 20:32 Penicillins [PCN] Allergy Hives Verified 10/15/17 20:32 pregabalin [From Lyrica] Allergy Hives Verified 10/15/17 20:32 propoxyphene Allergy Hallucinati Verified 10/15/17 20:32 [From Darvocet-N] ng pyridoxal phosphate Allergy Dizziness Verified 10/15/17 20:32 [From Metanx] - Respiratory Orders Oxygen / L per min (2) Smoking Cessation: Smoking cessation has been advised. For more information, call the [place] Tobacco Quit Line at 0-324-KLNB-NOW. - Advance Directives Code Status: DNR-Arrest/Don't Intubate - Rehabiliation Orders Rehab Orders: ROM Exercises, Evaluation for Physical Therapy, Evaluation for Occupational Therapy - Diet Orders No Concentrated Sweets CERTIFICATION: I certify that the transfer of the above named patient to an Extended Care Facility is necessary for the continuing treatment of the diagnosis listed. The above information is true and accurate reflection of patient's current condition. Confidential - Redisclosure prohibited without a patient's written consent.
[2017-11-14 10:49] VITALS: BP 117/63
--- NOTE | 2017-11-14 15:52 | Electrocardiograph Report ---
[place] [id number] Test Date: 2017-11-11 Pat Name: Jose Seals Department: 114 Room: [facility] Gender: F Clinical Rehab Liaison: : 1930 Requested By: Roberto Brand Order Number: [id number] Reading MD: Thomas Mckeon MD Measurements Intervals [place] Rate: 0 P: MN: 0 QRS: 0 QRSD: 0 T: 0 QT: 0 QTc: 0 Interpretive Statements SINUS RHYTHM Poor R wave progression BASELINE ARTIFACT Electronically Signed On 11-14-2017 15:51:07 EST by Thomas Mckeon MD
--- NOTE | 2017-11-14 16:10 | Electrocardiograph Report ---
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
--- NOTE | 2017-11-14 16:11 | Electrocardiograph Report ---
[place] [address] Test Date: 2017-11-11 Pat Name: Jose Seals Department: 114 Room: 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
== END 2017-11-14 14:14 | DRG 480 ==
LOC: 3NENU 15:43 → SUATTDRO 15:43 → 3NENU 18:33
PROVIDERS: ADMIT Internal Medicine; ATTEND Internal Medicine